=== PATIENT | male | born 1970 | race Caucasian/White ===

== ENCOUNTER → 2020-03-19 | Outpatient (CLI) | payer OTHER ==
--- NOTE | 2020-03-19 13:59 | CT ---
EXAMINATION TYPE: CT abdomen pelvis wo con DATE OF EXAM: 03/19/2020 COMPARISON: None HISTORY: Generalized pain. CT DLP: 2538 mGycm Examination of the solid and hollow viscera is limited given the lack of contrast. FINDINGS: LUNG BASES: No evidence for nodule. No evidence for infiltrate. LIVER/GB: The gallbladder is unremarkable. No space-occupying hepatic lesion. PANCREAS: No pancreatic mass identified. No inflammatory process seen. SPLEEN: No evidence for splenomegaly. No intrasplenic lesions seen. ADRENALS: No adrenal nodules identified. No evidence for thickening. KIDNEYS: No evidence for renal mass. No nephrolithiasis. No hydronephrosis. BOWEL: Appendix has a normal appearance. No evidence of bowel obstruction. No inflammatory process. Lymph nodes: No evidence for adenopathy greater than 1 cm. Abdominal aorta: Atheromatous changes seen. No evidence for aneurysm. Genital organs: No significant abnormality. Other: No significant abnormality. IMPRESSION: NO DISTINCT ABNORMALITY TO ACCOUNT FOR THE PATIENT'S SYMPTOMS.
== END | disposition home or self-care (01) ==
LOC: RADCTMAIN 13:19
PROVIDERS: ATTEND Family Medicine
DX: R10.9 Unspecified abdominal pain (principal)
CPT/HCPCS: 74176

== ENCOUNTER 2020-04-10 16:54 | Inpatient (IN) | payer OTHER ==
[2020-04-10] MEDS ORDERED: DILTIAZEM DRIP BOLUS FROM BAG 1 MG SOLN IV ONE ×2 (17:32→18:36)
--- NOTE | 2020-04-10 17:37 | ED ---
Arrhythmia/Palpitations HPI - General Chief Complaint: Arrhythmia/Palpitations Stated Complaint: chest pain Time Seen by Provider: 04/10/20 17:10 Source: patient, family, RN notes reviewed Mode of arrival: ambulatory Limitations: no limitations - History of Present Illness Initial Comments: This is a 49-year-old male with no prior history of heart disease who states he had the onset around 2 PM today of retrosternal chest pain and palpitations. No new medication reported no fevers chills nausea vomiting sweats he does state he was a drinker of a lot of beer up until about one to one half years ago he still smokes but thinks he will quit now. The pain is minimal but he just knows palpitations. No history of thyroid disease no new medication. No other modifying factors MD Complaint: rapid heart beat, "heart racing" - Related Data Home Medications Medication Instructions Recorded Confirmed Albuterol Sulfate [Proair Hfa] 2 puff INHALATION RT-Q4H PRN 04/10/20 04/10/20 Amoxicillin 500 mg PO DAILY PRN 04/10/20 04/10/20 Aspirin EC [Ecotrin Low Dose] 81 mg PO DAILY 04/10/20 04/10/20 Eovqpyh-Dmmc-Zzcv [id number] 1 tab PO DAILY PRN 04/10/20 04/10/20 [Excedrin] Baclofen [Lioresal] 10 mg PO TID PRN 04/10/20 04/10/20 Budesonide/Formoterol Fumarate 2 puff INHALATION RT-BID 04/10/20 04/10/20 [Symbicort 160-4.5 Mcg Inhaler] Citalopram Hydrobromide [CeleXA] 10 mg PO DAILY PRN 04/10/20 04/10/20 HYDROcodone/APAP 5-325MG [[place] 1 - 2 tab PO Q4-6H PRN 04/10/20 04/10/20 5-325] Ibuprofen [Advil] 400 mg PO Q4-6H PRN 04/10/20 04/10/20 Lovastatin [Altoprev] 20 mg PO DAILY 04/10/20 04/10/20 Magnesium (Unknown Strength) 1 tab PO DAILY 04/10/20 04/10/20 Omeprazole [PriLOSEC] 20 mg PO DAILY 04/10/20 04/10/20 Pregabalin [Lyrica] 50 mg PO DAILY PRN 04/10/20 04/10/20 Sudafed Otc (Unknown Strength) 1 tab PO DAILY PRN 04/10/20 04/10/20 Vitamin B (Unknown Strength) 1 tab PO DAILY 04/10/20 04/10/20 Vitamin D (Unknown Strength) 1 tab PO DAILY 04/10/20 04/10/20 amLODIPine BESYLATE/BENAZEPRIL 1 cap PO DAILY 04/10/20 04/10/20 [amLODIPine BESYLATE/BENAZEPRIL 5-40 MG] metFORMIN HCL [Glucophage] 1,000 mg PO BID 04/10/20 04/10/20 Allergies Allergy/AdvReac Type Severity Reaction Status Date / Time caffeine [From Cafergot] Allergy Unknown Verified 04/10/20 19:37 codeine Allergy Unknown Verified 04/10/20 19:37 ergotamine [From Cafergot] Allergy Unknown Verified 04/10/20 19:37 Review of Systems ROS Statement: Those systems with pertinent positive or pertinent negative responses have been documented in the HPI. ROS Other: All systems not noted in ROS Statement are negative. Past Medical History Past Medical History: Diabetes Mellitus Additional Past Medical History / Comment(s): neuropathy History of Any Multi-Drug Resistant Organisms: None Reported Additional Past Surgical History / Comment(s): toe amputation Past Psychological History: No Psychological Hx Reported Smoking Status: Current every day smoker Past Alcohol Use History: None Reported Past Drug Use History: None Reported General Exam - General Exam Comments Initial Comments: Is a well-developed well-nourished awake alert oriented 3 male Limitations: no limitations General appearance: alert, anxious Head exam: Present: atraumatic, normocephalic, normal inspection Eye exam: Present: normal appearance, PERRL, EOMI. Absent: scleral icterus, conjunctival injection, periorbital swelling ENT exam: Present: normal exam, mucous membranes moist Neck exam: Present: normal inspection, full ROM, other. Absent: tenderness, men ingismus, lymphadenopathy Respiratory exam: Present: normal lung sounds bilaterally. Absent: respiratory distress, wheezes, rales, rhonchi, stridor Cardiovascular Exam: Present: tachycardia, irregular rhythm (Stridor JVD or bruits). Absent: systolic murmur, diastolic murmur, rubs, gallop, clicks GI/Abdominal exam: Present: soft, normal bowel sounds. Absent: distended, tenderness, guarding, rebound, rigid Extremities exam: Present: normal inspection, full ROM, normal capillary refill. Absent: tenderness, pedal edema, joint swelling, calf tenderness Back exam: Present: normal inspection Neurological exam: Present: alert, oriented X3, CN II-XII intact Psychiatric exam: Present: normal affect, normal mood Skin exam: Present: warm, dry, intact, normal color. Absent: rash Course Vital Signs 04/10/20 04/10/20 04/10/20 17:03 17:49 18:01 Temperature 97.9 F Pulse Rate 86 168 H 163 H Respiratory 18 16 18 Rate Blood Pressure 150/85 135/101 115/74 O2 Sat by Pulse 96 97 96 Oximetry 04/10/20 04/10/20 04/10/20 18:25 18:46 19:16 Temperature Pulse Rate 149 H 147 H 133 H Respiratory 18 18 Rate Blood Pressure 103/64 121/98 O2 Sat by Pulse 97 97 Oximetry - Reevaluation(s) Reevaluation #1: 04/10/20 20:05 Patient has no further discomfort in his chest is heart rate is trending downwards. He is receiving IV magnesium. EKG Findings - EKG Results: EKG: interpreted by ERMIlda (Atrial fibrillation rate of 182 QRS 74 daily since QTC 260/[address] configuration.) Medical Decision Making - Medical Decision Making Patient demonstrates atrial fibrillation with a rapid ventricular response. He also has hypomagnesemia. He was given IV magnesium IV Cardizem. He will be placed on heparin. I did discuss case with Cynthia Bailey who is covering Dr. Zhang. Patient be admitted with cardiology consultation - Lab Data Result diagrams: 04/10/20 17:33 04/10/20 17:33 Lab Results 04/10/20 04/10/20 04/10/20 Range/Units 17:33 17:33 17:33 WBC 14.5 H (3.8-10.6) k/uL RBC 5.51 (4.30-5.90) m/uL Hgb 16.0 (13.0-17.5) gm/dL Hct 48.7 (39.0-53.0) % MCV 88.3 (80.0-100.0) fL MCH 29.0 (25.0-35.0) pg MCHC 32.8 (31.0-37.0) g/dL RDW 13.3 (11.5-15.5) % Plt Count 233 (150-450) k/uL Neutrophils % 77 % Lymphocytes % 14 % Monocytes % 4 % Eosinophils % 5 % Basophils % 0 % Neutrophils # 11.2 H (1.3-7.7) k/uL Lymphocytes # 2.0 (1.0-4.8) k/uL Monocytes # 0.5 (0-1.0) k/uL Eosinophils # 0.7 (0-0.7) k/uL Basophils # 0.0 (0-0.2) k/uL PT 9.9 (9.0-12.0) sec INR 0.9 (<1.2) APTT 25.2 (22.0-30.0) sec D-Dimer 0.23 (<0.60) mg/L FEU Sodium 137 (137-145) mmol/L Potassium 3.9 (3.5-5.1) mmol/L Chloride 102 (98-107) mmol/L Carbon Dioxide 25 (22-30) mmol/L Anion Gap 10 mmol/L BUN 4 L (9-20) mg/dL Creatinine 0.52 L (0.66-1.25) mg/dL Est GFR (CKD-EPI)AfAm >90 (>60 ml/min/1.73 sqM) Est GFR (CKD-EPI)NonAf >90 (>60 ml/min/1.73 sqM) Glucose 138 H (74-99) mg/dL Calcium 9.3 (8.4-10.2) mg/dL Magnesium 1.4 L (1.6-2.3) mg/dL Total Bilirubin 0.3 (0.2-1.3) mg/dL AST 18 (17-59) U/L ALT 11 (4-49) U/L Alkaline Phosphatase 151 H (38-126) U/L Creatine Kinase 46 L (55-170) U/L Troponin I (0.000-0.034) ng/mL Total Protein 7.7 (6.3-8.2) g/dL Albumin 4.3 (3.5-5.0) g/dL TSH 1.260 (0.465-4.680) mIU/L 04/10/20 Range/Units 17:33 WBC (3.8-10.6) k/uL RBC (4.30-5.90) m/uL Hgb (13.0-17.5) gm/dL Hct (39.0-53.0) % MCV (80.0-100.0) fL MCH (25.0-35.0) pg MCHC (31.0-37.0) g/dL RDW (11.5-15.5) % Plt Count (150-450) k/uL Neutrophils % % Lymphocytes % % Monocytes % % Eosinophils % % Basophils % % Neutrophils # (1.3-7.7) k/uL Lymphocytes # (1.0-4.8) k/uL Monocytes # (0-1.0) k/uL Eosinophils # (0-0.7) k/uL Basophils # (0-0.2) k/uL PT (9.0-12.0) sec INR (<1.2) APTT (22.0-30.0) sec D-Dimer (<0.60) mg/L FEU Sodium (137-145) mmol/L Potassium (3.5-5.1) mmol/L Chloride (98-107) mmol/L Carbon Dioxide (22-30) mmol/L Anion Gap mmol/L BUN (9-20) mg/dL Creatinine (0.66-1.25) mg/dL Est GFR (CKD-EPI)AfAm (>60 ml/min/1.73 sqM) Est GFR (CKD-EPI)NonAf (>60 ml/min/1.73 sqM) Glucose (74-99) mg/dL Calcium (8.4-10.2) mg/dL Magnesium (1.6-2.3) mg/dL Total Bilirubin (0.2-1.3) mg/dL AST (17-59) U/L ALT (4-49) U/L Alkaline Phosphatase (38-126) U/L Creatine Kinase (55-170) U/L Troponin I <0.012 (0.000-0.034) ng/mL Total Protein (6.3-8.2) g/dL Albumin (3.5-5.0) g/dL TSH (0.465-4.680) mIU/L - Radiology Data Radiology results: report reviewed, image reviewed Critical Care Time Critical Care Time: Yes Critical Care Time: 39 minutes of critical care time which includes initial presentation with history physical labs x-rays reevaluation patient response to therapy discuss w ith the admitting physician coverage admission orders neck mentation the above Disposition Clinical Impression: Atrial fibrillation, Atrial fibrillation with rapid ventricular response, Hypomagnesemia syndrome, Chest pain Disposition: ADMITTED IP TO THIS HOSP Condition: Fair Referrals: Niki Antoine DO [Primary Care Provider] - 1-2 days
[2020-04-10] MEDS: DILTIAZEM 125 MG in SODIUM CHLORIDE 0.9% 100 ML IV SCH ×2 (17:46→18:00)
[2020-04-10 17:52] LABS: Basophils % (A) 0 %; Eosinophils # (A) 0.7 k/uL (0-0.7); Eosinophils % (A) 5 %; HCT 48.7 % (39.0-53.0); Lymphocytes % (A) 14 %; MCHC 32.8 g/dL (31.0-37.0); MCV 88.3 fL (80.0-100.0); Mean Platelet Volume 7.9; Monocytes # (A) 0.5 k/uL (0-1.0); Monocytes % (A) 4 %; Neutrophils # (A) 11.2 k/uL (1.3-7.7); Neutrophils % (A) 77 %; Platelet Count 233 k/uL (150-450); RBC 5.51 m/uL (4.30-5.90); RDW 13.3 % (11.5-15.5); WBC 14.5 k/uL (3.8-10.6)
[2020-04-10 18:02] VITALS: RESP 18
[2020-04-10 18:03] LABS: ALT 11 U/L (4-49); AST 18 U/L (17-59); African American GFR (CKD) >90 (>60 ml/min/1.73 sqM); Albumin 4.3 g/dL (3.5-5.0); Alkaline Phosphatase 151 U/L (38-126); Anion Gap 10 mmol/L; Blood Urea Nitrogen 4 mg/dL (9-20); Calcium 9.3 mg/dL (8.4-10.2); Carbon Dioxide 25 mmol/L (22-30); Chloride 102 mmol/L (98-107); Creatine Kinase 46 U/L (55-170); Glucose 138 mg/dL (74-99); Magnesium 1.4 mg/dL (1.6-2.3); Non-African American GFR(CKD) >90 (>60 ml/min/1.73 sqM); Potassium 3.9 mmol/L (3.5-5.1); Sodium 137 mmol/L (137-145); Total Bilirubin 0.3 mg/dL (0.2-1.3); Total Protein 7.7 g/dL (6.3-8.2)
[2020-04-10 18:24] LABS: D-Dimer 0.23 mg/L FEU (<0.60); INR 0.9 (<1.2); Partial Thromboplastin Time 25.2 sec (22.0-30.0); Prothrombin Time 9.9 sec (9.0-12.0)
--- NOTE | 2020-04-10 18:30 | XR ---
EXAMINATION TYPE: XR chest 2V DATE OF EXAM: 04/10/2020 COMPARISON: NONE HISTORY: Dysrhythmia TECHNIQUE: 2 views FINDINGS: Heart and mediastinum are normal. Lungs are clear. Diaphragm is normal. Bony thorax appears normal. IMPRESSION: Normal chest. Normal heart.
[2020-04-10] MEDS: MAGNESIUM SULFATE-D5W PMX 1 GM in DEXTROSE/WATER 1 100ML.BAG IVPB SCH ×2 (19:12→20:14)
[2020-04-10] MEDS ORDERED: HEPARIN SODIUM,PORCINE 5,000 UNIT/ML 1 ML VIAL IV ONE (20:09)
[2020-04-10] MEDS ORDERED: NITROGLYCERIN SL TABS 0.4 MG TAB SUBLINGUAL PRN (20:09)
[2020-04-10] MEDS ORDERED: HYDROcodone/APAP 5-325MG 1 EACH TAB PO PRN (20:11)
[2020-04-10] MEDS ORDERED: ALBUTEROL NEBULIZED 2.5 MG/3 ML INHALATION PRN (20:11)
[2020-04-10] MEDS ORDERED: PREGABALIN 50 MG CAP PO PRN (20:11)
[2020-04-10] MEDS ORDERED: BACLOFEN 10 MG TAB PO PRN (20:11)
[2020-04-10] MEDS ORDERED: CITALOPRAM HYDROBROMIDE 10 MG TAB PO PRN (20:11)
[2020-04-10] MEDS ORDERED: AMOXICILLIN 500 MG CAP PO PRN (20:11)
[2020-04-10] MEDS ORDERED: HEPARIN SOD,PORK IN 0.45% NACL 25,000 UNIT in 0.45% NACL 1 250ML.BAG IV SCH (20:15)
[2020-04-10 21:30] LABS: Glucose,Whole Blood 140 mg/dL (75-99)
[2020-04-10] MEDS: INSULIN ASPART (NovoLOG) 100 UNIT/ML VIAL SQ SCH (23:16)
[2020-04-10] MEDS: metFORMIN 500 MG TAB PO SCH (23:16)
[2020-04-11 06:13] LABS: Glucose,Whole Blood 103 mg/dL (75-99)
[2020-04-11] MEDS: INSULIN ASPART (NovoLOG) 100 UNIT/ML VIAL SQ SCH ×2 (06:19→12:17)
[2020-04-11 06:43] LABS: Cholesterol 131 mg/dL (<200); HDL Cholesterol 51 mg/dL (40-60); LDL Cholesterol,Calculated 54 mg/dL (0-99); Triglycerides 130 mg/dL (<150)
[2020-04-11] MEDS ORDERED: PANTOPRAZOLE 40 MG TABLET PO SCH (07:30)
[2020-04-11] MEDS ORDERED: SYMBICORT 160-4.5 MCG INHALER INHALATION SCH (08:00)
[2020-04-11] MEDS ORDERED: HEPARIN SODIUM,PORCINE 5,000 UNIT/ML 1 ML VIAL IV PRN ×2 (08:30→08:36)
[2020-04-11] MEDS ORDERED: ATORVASTATIN 10 MG TAB PO SCH (09:00)
[2020-04-11] MEDS ORDERED: amLODIPine 5 MG TAB PO SCH (09:00)
[2020-04-11] MEDS ORDERED: [UNRECOGNIZED DRUG - OTHER] PO SCH (09:00)
[2020-04-11] MEDS ORDERED: ASPIRIN 81 MG PO SCH (09:00)
[2020-04-11] MEDS ORDERED: BENAZEPRIL PO SCH (09:00)
[2020-04-11] MEDS ORDERED: AMLODIPINE BESYLATE PO SCH (09:00)
[2020-04-11] MEDS ORDERED: ASPIRIN 325 MG TAB PO SCH (09:00)
[2020-04-11] MEDS ORDERED: LISINOPRIL 20 MG TAB PO SCH (09:00)
[2020-04-11 12:01] LABS: Glucose,Whole Blood 101 mg/dL (75-99)
--- NOTE | 2020-04-11 12:10 | P.CRDCN ---
History of Present Illness Consult date: 04/11/20 Requesting physician: Veena Zhang Reason for Consult (text): AF w/RVR, chest pain Chief complaint: RHB History of present illness: This is a pleasant 49-year-old gentleman with a past medical history of hypertension, hyperlipidemia, diabetes which she says is well-controlled with his most recent hemoglobin A1c of 5.6, previous history of heavy drinking and would drink about 4-5 40 ounce bottles of malt liquor or daily, quit about 16 months ago, occurring every day smoker but is planning to quit, low back pain, lower extremity neuropathy with limited mobility. He does use a cane and uses a wheelchair most the time when he is out of the house. He presented to the emergency department after developing palpitations that he described as a fluttering in his shots at which time he used his [employer] marcy on his phone which alerted him that he was in atrial fibrillation. He subsequently presented to the emergency department for further evaluation. EKG on admission showed patient to be in atrial fibrillation with rapid ventricular response with a heart rate of 182. Chest x-ray showed normal chest, normal heart. Labs showed white blood cell count 14,500, normal d-dimer, potassium 3.9, BUN 4, creatinine 0.52, magnesium 1.4 and normal TSH. Lipids are well controlled. He was i nitiated on Cardizem drip as well as heparin drip. He has subsequently converted to sinus rhythm. Currently on Norvasc, aspirin, Lipitor, Celexa, Seymour as needed, NovoLog, lisinopril, metformin and Protonix. He is feeling quite a bit better. He has chronic low back pain and he is complaining of this now. He was unable to sleep last night. Upon further questioning it appears patient probably has obstructive sleep apnea although he's never gone through workup. He denies any shortness of breath but does have a history of asthma. Denies edema, orthopnea or PND. He's had no chest discomfort. Palpitations have resolved. Past Medical History Past Medical History: Diabetes Mellitus Additional Past Medical History / Comment(s): neuropathy History of Any Multi-Drug Resistant Organisms: None Reported Additional Past Surgical History / Comment(s): toe amputation Past Psychological History: No Psychological Hx Reported Smoking Status: Current every day smoker Past Alcohol Use History: None Reported Past Drug Use History: None Reported Medications and Allergies Home Medications Medication Instructions Recorded Confirmed Type Albuterol Sulfate [Proair Hfa] 2 puff INHALATION RT-Q4H PRN 04/10/20 04/10/20 History Amoxicillin 500 mg PO DAILY PRN 04/10/20 04/10/20 History Aspirin EC [Ecotrin Low Dose] 81 mg PO DAILY 04/10/20 04/10/20 History Qindvdy-Rwyr-Yuyo [id number] 1 tab PO DAILY PRN 04/10/20 04/10/20 History [Excedrin] Baclofen [Lioresal] 10 mg PO TID PRN 04/10/20 04/10/20 History Budesonide/Formoterol Fumarate 2 puff INHALATION RT-BID 04/10/20 04/10/20 History [Symbicort 160-4.5 Mcg Inhaler] Citalopram Hydrobromide [CeleXA] 10 mg PO DAILY PRN 04/10/20 04/10/20 History HYDROcodone/APAP 5-325MG [[place] 1 - 2 tab PO Q4-6H PRN 04/10/20 04/10/20 History 5-325] Ibuprofen [Advil] 400 mg PO Q4-6H PRN 04/10/20 04/10/20 History Lovastatin [Altoprev] 20 mg PO DAILY 04/10/20 04/10/20 History Magnesium (Unknown Strength) 1 tab PO DAILY 04/10/20 04/10/20 History Omeprazole [PriLOSEC] 40 mg PO DAILY 04/10/20 04/10/20 History Pregabalin [Lyrica] 50 mg PO DAILY PRN 04/10/20 04/10/20 History Sudafed Otc (Unknown Strength) 1 tab PO DAILY PRN 04/10/20 04/10/20 History Vitamin B (Unknown Strength) 1 tab PO DAILY 04/10/20 04/10/20 History Vitamin D (Unknown Strength) 1 tab PO DAILY 04/10/20 04/10/20 History amLODIPine BESYLATE/BENAZEPRIL 1 cap PO DAILY 04/10/20 04/10/20 History [amLODIPine BESYLATE/BENAZEPRIL 5-40 MG] metFORMIN HCL [Glucophage] 1,000 mg PO BID 04/10/20 04/10/20 History Allergies Allergy/AdvReac Type Severity Reaction Status Date / Time caffeine [From Cafergot] Allergy Unknown Verified 04/10/20 19:37 codeine Allergy Unknown Verified 04/10/20 19:37 ergotamine [From Cafergot] Allergy Unknown Verified 04/10/20 19:37 Physical Exam Vitals: Vital Signs Temp Pulse Pulse Resp BP BP Pulse Ox 04/11/20 07:46 98.3 F 80 18 148/88 97 04/11/20 04:00 116 H 18 148/79 96 04/11/20 00:00 116 H 18 136/85 94 L 04/10/20 20:51 97.9 F 105 H 18 105/71 97 04/10/20 20:22 116 H 18 110/78 96 04/10/20 19:16 133 H 18 121/98 97 04/10/20 18:46 147 H 18 103/64 97 04/10/20 18:25 149 H 04/10/20 18:01 163 H 18 115/74 96 04/10/20 17:49 168 H 16 135/101 97 04/10/20 17:03 97.9 F 86 18 150/85 96 Intake and Output 04/10/20 04/11/20 04/11/20 22:59 06:59 14:59 Intake Total 201.167 63.616 77.597 Output Total 100 Balance 201.167 -36.384 77.597 Intake: Intake, IV Titration 201.167 63.616 77.597 Amount Diltiazem 125 mg In 1.167 Sodium Chloride 0.9% 100 ml @ 5 MG/HR 5 mls/hr IV .Q24H LEN[facility] Rx#:[id number] Heparin Sod,Pork in 0.45% 63.616 77.597 NaCl 25,000 unit In 0.45 % NaCl 1 250ml.bag @ 8.01 UNITS/KG/HR 9.992 mls/hr IV .Q24H [facility] Rx#: [id number] Magnesium Sulfate-D5w Pmx 200 1 gm In Dextrose/Water 1 100ml.bag @ 100 mls/hr IVPB Q1H [facility] Rx#: [id number] Output: Urine 100 Other: Voiding Method Urinal Weight 124.738 kg 166.2 kg PHYSICAL EXAMINATION: This is a 49-year-old male in no apparent distress at the time of my examination. VITAL SIGNS: Blood pressure 148/88, heart rate 80, respirations 18, temp 98.3F. Patient is and 97 % on room air. HEENT: Head is atraumatic, normocephalic. Pupils are equal, round. Sclerae anicteric. Conjunctivae are clear. Mucous membranes of the mouth are moist. Neck is supple. There is no elevated jugular venous pressure. No carotid bruit is heard. CHEST EXAMINATION: Clear to auscultation bilaterally. No wheezes rales or rhonchi. Respirations even and nonlabored. HEART EXAMINATION: Heart regular regular, positive S1 and S2. No S3. No S4. No clicks, rubs or murmurs. ABDOMEN: Soft, obese, nontender. Bowel sounds are heard. EXTREMITIES: 1+ peripheral pulses with no evidence of peripheral edema and no calf tenderness noted. NEUROLOGIC EXAMINATION: Patient is awake, alert and oriented x3. Results 04/10/20 17:33 04/10/20 17:33 Cardiac Enzymes 04/10/20 04/10/20 04/10/20 Range/Units 17:33 17:33 22:57 AST 18 (17-59) U/L Troponin I <0.012 <0.012 (0.000-0.034) ng/mL 04/11/20 Range/Units 05:53 AST (17-59) U/L Troponin I <0.012 (0.000-0.034) ng/mL Coagulation 04/10/20 04/11/20 04/11/20 Range/Units 17:33 02:00 05:53 PT 9.9 (9.0-12.0) sec APTT 25.2 27.8 31.7 H (22.0-30.0) sec Lipids 04/11/20 Range/Units 05:53 Triglycerides 130 (<150) mg/dL Cholesterol 131 (<200) mg/dL HDL Cholesterol 51 (40-60) mg/dL CBC 04/10/20 Range/Units 17:33 WBC 14.5 H (3.8-10.6) k/uL RBC 5.51 (4.30-5.90) m/uL Hgb 16.0 (13.0-17.5) gm/dL Hct 48.7 (39.0-53.0) % Plt Count 233 (150-450) k/uL Comprehensive Metabolic Panel 04/10/20 Range/Units 17:33 Sodium 137 (137-145) mmol/L Potassium 3.9 (3.5-5.1) mmol/L Chloride 102 (98-107) mmol/L Carbon Dioxide 25 (22-30) mmol/L BUN 4 L (9-20) mg/dL Creatinine 0.52 L (0.66-1.25) mg/dL Glucose 138 H (74-99) mg/dL Calcium 9.3 (8.4-10.2) mg/dL AST 18 (17-59) U/L ALT 11 (4-49) U/L Alkaline Phosphatase 151 H (38-126) U/L Total Protein 7.7 (6.3-8.2) g/dL Albumin 4.3 (3.5-5.0) g/dL Current Medications Generic Name Dose Route Start Last Admin Trade Name Freq PRN Reason Stop Dose Admin Hydrocodone Bitart/Acetaminophen 2 each 04/10/20 20:11 Seymour 5-325 PO Q4H PRN Pain Albuterol Sulfate 2.5 mg 04/10/20 20:11 Ventolin Nebulized INHALATION RT-Q4H PRN Shortness Of Breath Amlodipine Besylate 5 mg 04/11/20 09:00 04/11/20 08:00 Norvasc PO 5 mg DAILY LENI Administration Aspirin 81 mg 04/11/20 09:00 04/11/20 08:00 Aspirin PO 81 mg DAILY LENI Administration Atorvastatin Calcium 10 mg 04/11/20 09:00 04/11/20 08:00 Lipitor PO 10 mg DAILY LENI Administration Baclofen 10 mg 04/10/20 20:11 Lioresal PO TID PRN muscle spasm Budesonide/Formoterol Fumarate 2 puff 04/11/20 08:00 04/11/20 07:51 Symbicort 160-4.5 Mcg Inhaler INHALATION 2 puff RT-BID LENI Administration Citalopram Hydrobromide 10 mg 04/10/20 20:11 Celexa PO DAILY PRN Anxiety Heparin Sodium (Porcine) 0 unit 04/11/20 08:36 04/11/20 08:55 Heparin IV 4,000 unit PER PROTOCOL PRN Administration Low PTT Protocol Diltiazem HCl 125 mg/ Sodium 125 mls @ 5 mls/hr 04/10/20 17:45 04/10/20 18:00 Chloride IV 10 mg/hr .Q24H LENI 10 mls/hr Administration 5 MG/HR Heparin Sodium/Sodium Chloride 250 mls @ 9.992 mls/hr 04/10/20 20:15 04/11/20 08:24 25,000 unit/ Sodium Chloride IV 14 units/kg/hr .Q24H [facility]EN[facility] 17.463 mls/hr Titration Protocol 8.01 UNITS/KG/HR Insulin Aspart 0 unit 04/10/20 21:00 04/11/20 06:19 Novolog SQ Not Given ACHS [facility] Protocol Lisinopril 40 mg 04/11/20 09:00 04/11/20 08:00 Zestril PO 40 mg DAILY LENI Administration Metformin HCl 1,000 mg 04/10/20 21:00 04/10/20 23:16 Glucophage PO 1,000 mg BID LENI Administration Nitroglycerin 0.4 mg 04/10/20 20:09 Nitrostat SUBLINGUAL Q5M PRN Chest Pain Pantoprazole Sodium 40 mg 04/11/20 07:30 04/11/20 08:00 Protonix PO 40 mg AC-BRKFST LENI Administration Pregabalin 50 mg 04/10/20 20:11 Lyrica PO DAILY PRN nerve pain in feet Intake and Output 04/10/20 04/11/20 04/11/20 22:59 06:59 14:59 Intake Total 201.167 63.616 77.597 Output Total 100 Balance 201.167 -36.384 77.597 Intake: Intake, IV Titration 201.167 63.616 77.597 Amount Diltiazem 125 mg In 1.167 Sodium Chloride 0.9% 100 ml @ 5 MG/HR 5 mls/hr IV .Q24H [facility] Rx#:[id number] Heparin Sod,Pork in 0.45% 63.616 77.597 NaCl 25,000 unit In 0.45 % NaCl 1 250ml.bag @ 8.01 UNITS/KG/HR 9.992 mls/hr IV .Q24H [facility] Rx#: [id number] Magnesium Sulfate-D5w Pmx 200 1 gm In Dextrose/Water 1 100ml.bag @ 100 mls/hr IVPB Q1H [facility] Rx#: [id number] Output: Urine 100 Other: Voiding Method Urinal Weight 124.738 kg 166.2 kg 04/10/20 17:33 04/10/20 17:33 EKG Interpretations (text) Atrial fibrillation with RVR Assessment and Plan Assessment: #1 new-onset paroxysmal atrial fibrillation with rapid ventricular response, currently maintaining sinus mechanism #2 hypertension #3 hyperlipidemia #4 diabetes mellitus #5 nicotine dependence, planning on quitting #6 obesity #7 history of alcohol abuse, quit drinking about 16 months ago #8 probable RAQUEL Plan: From cardiology's perspective, we will obtain a 2-D echo with Doppler. We will add beta ngozi and Eliquis. Stop Cardizem and IV heparin. We will follow-up with the patient as an outpatient at which time we will likely schedule the patient for further workup for obstructive sleep apnea as well as outpatient stress testing. From our standpoint, patient is stable for discharge home today if echocardiogram does not show significant abnormalities. BUILDING WRECKER note has been reviewed, I agree with a documented findings and plan of care. Patient was seen and examined.
[2020-04-11] MEDS ORDERED: APIXABAN 5 MG TAB PO SCH (12:15)
[2020-04-11] MEDS ORDERED: METOPROLOL TARTRATE 25 MG TAB PO SCH (12:15)
[2020-04-11] MEDS: metFORMIN 500 MG TAB PO SCH (12:26)
[2020-04-11 13:26] VITALS: BP 129/84; PULSE 72; TEMP 96.8
--- NOTE | 2020-04-11 14:30 | ECHOF ---
Referral Reason:PAF MEASUREMENTS -------- HEIGHT: 182.9 cm WEIGHT: 166.0 kg BP: 148/88 IVSd: 1.8 cm (0.6 - 1.1) LVIDd: 3.9 cm (3.9 - 5.3) LVPWd: 1.6 cm (0.6 - 1.1) IVSs: 2.0 cm LVIDs: 2.7 cm LVPWs: 2.0 cm RVIDd: 3.5 cm (< 3.3) Ao Diam: 3.3 cm (2.0 - 3.7) LA Diam: 4.6 cm (2.7 - 3.8) AV Cusp: 2.1 cm (1.5 - 2.6) EPSS: 0.4 cm MV E Jonathan: 1.03 m/s MV DecT: 162 ms MV A Jonathan: 0.76 m/s MV E/A Ratio: 1.36 RAP: 5.00 mmHg RVSP: 15.50 mmHg MV EF SLOPE: 77.16 mm/s (70 - 150) MV EXCURSION: 18.35 mm (> 18.000) FINDINGS -------- Sinus rhythm. This was a technically difficult study with suboptimal views. The left ventricular size is normal. There is severe concentric left ventricular hypertrophy. Ove rall left ventricular systolic function is normal with, an EF between 55 - 60 %. The diastolic fill ing pattern is normal for the age of the patient {E/E'}. The right ventricle is mild to moderately enlarged. The left atrium is mildly dilated. The right atrium was not well visualized. There is mild aortic valve sclerosis without stenosis. The mitral valve is normal. There is trace to mild mitral regurgitation. Mild tricuspid regurgitation present. The right ventricular systolic pressure, as measured by Doppl er, is 15.50mmHg. The pulmonic valve was not well visualized. There is no pulmonic regurgitation present. The aortic root size is normal. IVC Not well visulized. There is no pericardial effusion. 5.0mg of Lumason was utilized for enhancement of images CONCLUSIONS -------- 1. Sinus rhythm. 2. This was a technically difficult study with suboptimal views. 3. There is severe concentric left ventricular hypertrophy. 4. Overall left ventricular systolic function is normal with, an EF between 55 - 60 %. 5. The diastolic filling pattern is normal for the age of the patient {E/E'} 6. The right ventricle is mild to moderately enlarged. 7. The left atrium is mildly dilated. 8. There is mild aortic valve sclerosis without stenosis. 9. There is trace to mild mitral regurgitation. 10. Mild tricuspid regurgitation present. 11. 5.0mg of Lumason was utilized for enhancement of images 12. There is no pericardial effusion. [employer] OPERATOR: Isabella Prescott RDCS
--- NOTE | 2020-04-15 15:14 | P.HPIM ---
History of Present Illness H&P Date: 04/11/20 Chief Complaint: Palpitations Patient is a 49-year-old male with a known history of diabetes type 2-diet controlled, morbid obesity, hyperlipidemia presents to ER with complaints of heart racing of fast since 2 PM yesterday. Patient also felt some retrosternal chest pain. No radiation. No associated nausea vomiting or diaphoresis. Patient says that he didn't sleep well last night and has been up all night and is also taking Coffee as well. Patient says that he did drink beer up until one half year ago. Patient does smoke but has been cutting down. No complaints of fever or chills. No headache or dizziness or lightheadedness. No cough or sputum production. Denied any recent illnesses. Denied any orthopnea or PND. In the ER patient was found have atrial fibrillation with rapid ventricular rate. Was started on Cardizem drip and heparin drip. Currently patient is converted to sinus rhythm. EKG on admission showed A. fib with RVR with heart rate 182 Chest x-ray showed no acute cardiopulmonary process. Review of Systems Constitutional: Patient denies any fever or chills . No generalized weakness or weight loss. Abdomen: Patient denied nausea vomiting and diarrhea and abdominal pain. Cardiovascular: Patient denies any chest pain or short of breath . Patient does have palpitations. Respiratory: patient denied any cough is from production. No shortness of breath Neurologic: Patient denied any numbness or tingling headache. Musculoskeletal: Patient denies any complaints of joint swelling or deformity. Skin: Negative Psychiatric: Negative Endocrine: No heat or cold intolerance. No recent weight gain. Genitourinary: No dysuria or hematuria. All other 14 point ROS negative except the above Past Medical History Past Medical History: Diabetes Mellitus Additional Past Medical History / Comment(s): neuropathy History of Any Multi-Drug Resistant Organisms: None Reported Additional Past Surgical History / Comment(s): toe amputation Past Psychological History: No Psychological Hx Reported Smoking Status: Current every day smoker Past Alcohol Use History: None Reported Past Drug Use History: None Reported Medications and Allergies Home Medications Medication Instructions Recorded Confirmed Type Albuterol Sulfate [Proair Hfa] 2 puff INHALATION RT-Q4H PRN 04/10/20 04/10/20 History Amoxicillin 500 mg PO DAILY PRN 04/10/20 04/10/20 History Aspirin EC [Ecotrin Low Dose] 81 mg PO DAILY 04/10/20 04/10/20 History Baclofen [Lioresal] 10 mg PO TID PRN 04/10/20 04/10/20 History Budesonide/Formoterol Fumarate 2 puff INHALATION RT-BID 04/10/20 04/10/20 History [Symbicort 160-4.5 Mcg Inhaler] Citalopram Hydrobromide [CeleXA] 10 mg PO DAILY PRN 04/10/20 04/10/20 History HYDROcodone/APAP 5-325MG [[place] 1 - 2 tab PO Q4-6H PRN 04/10/20 04/10/20 History 5-325] Lovastatin [Altoprev] 20 mg PO DAILY 04/10/20 04/10/20 History Magnesium (Unknown Strength) 1 tab PO DAILY 04/10/20 04/10/20 History Omeprazole [PriLOSEC] 40 mg PO DAILY 04/10/20 04/10/20 History Pregabalin [Lyrica] 50 mg PO DAILY PRN 04/10/20 04/10/20 History Sudafed Otc (Unknown Strength) 1 tab PO DAILY PRN 04/10/20 04/10/20 History Vitamin B (Unknown Strength) 1 tab PO DAILY 04/10/20 04/10/20 History Vitamin D (Unknown Strength) 1 tab PO DAILY 04/10/20 04/10/20 History amLODIPine BESYLATE/BENAZEPRIL 1 cap PO DAILY 04/10/20 04/10/20 History [amLODIPine BESYLATE/BENAZEPRIL 5-40 MG] metFORMIN HCL [Glucophage] 1,000 mg PO BID 04/10/20 04/10/20 History Apixaban [Eliquis] 5 mg PO BID #60 tab 04/11/20 Rx Metoprolol Tartrate [Lopressor] 25 mg PO BID #60 tab 04/11/20 Rx Allergies Allergy/AdvReac Type Severity Reaction Status Date / Time caffeine [From Cafergot] Allergy Unknown Verified 04/10/20 19:37 codeine Allergy Unknown Verified 04/10/20 19:37 ergotamine [From Cafergot] Allergy Unknown Verified 04/10/20 19:37 Physical Exam Vitals: Vital Signs Temp Pulse Pulse Resp BP BP Pulse Ox 04/11/20 07:46 98.3 F 80 18 148/88 97 04/11/20 04:00 116 H 18 148/79 96 04/11/20 00:00 116 H 18 136/85 94 L 04/10/20 20:51 97.9 F 105 H 18 105/71 97 04/10/20 20:22 116 H 18 110/78 96 04/10/20 19:16 133 H 18 121/98 97 04/10/20 18:46 147 H 18 103/64 97 04/10/20 18:25 149 H 04/10/20 18:01 163 H 18 115/74 96 04/10/20 17:49 168 H 16 135/101 97 04/10/20 17:03 97.9 F 86 18 150/85 96 Intake and Output 04/10/20 04/11/20 04/11/20 22:59 06:59 14:59 Intake Total 201.167 63.616 77.597 Output Total 100 Balance 201.167 -36.384 77.597 Intake: Intake, IV Titration 201.167 63.616 77.597 Amount Diltiazem 125 mg In 1.167 Sodium Chloride 0.9% 100 ml @ 5 MG/HR 5 mls/hr IV .Q24H [facility] Rx#:[id number] Heparin Sod,Pork in 0.45% 63.616 77.597 NaCl 25,000 unit In 0.45 % NaCl 1 250ml.bag @ 8.01 UNITS/KG/HR 9.992 mls/hr IV .Q24H [facility] Rx#: [id number] Magnesium Sulfate-D5w Pmx 200 1 gm In Dextrose/Water 1 100ml.bag @ 100 mls/hr IVPB Q1H [facility] Rx#: [id number] Output: Urine 100 Other: Voiding Method Urinal Weight 124.738 kg 166.2 kg PHYSICAL EXAMINATION: Patient is lying in the bed comfortably, no acute distress, awake alert and oriented. Morbid obesity. HEENT: Normocephalic. Neck is supple. Pupils reactive. Nostrils clear. Oral cavity is moist. Ears reveal no drainage. Neck reveals no JVD, carotid bruits, or thyromegaly. CHEST EXAMINATION: Trachea is central. Symmetrical expansion. Bibasilar diminished air entry. Lung kramer clear to auscultation and percussion. CARDIAC: Normal S1, S2 with no gallops. No murmurs ABDOMEN: Soft. Bowel sounds normal. No organomegaly. No abdominal bruits. Extremities: reveal no edema. No clubbing or cyanosis Neurologically awake, alert, oriented x3 with well-coordinated movements. No focal deficits noted Skin: No rash or skin lesions. Psychiatric: Coperative. Nonsuicidal Musculoskeletal: No joint swelling or deformity. Normal range of motion. Results CBC & Chem 7: 04/10/20 17:33 04/10/20 17:33 Labs: Abnormal Lab Results - Last 24 Hours (Table) 04/10/20 04/10/20 04/10/20 Range/Units 17:33 17:33 21:27 WBC 14.5 H (3.8-10.6) k/uL Neutrophils # 11.2 H (1.3-7.7) k/uL APTT (22.0-30.0) sec BUN 4 L (9-20) mg/dL Creatinine 0.52 L (0.66-1.25) mg/dL Glucose 138 H (74-99) mg/dL POC Glucose (mg/dL) 140 H (75-99) mg/dL Magnesium 1.4 L (1.6-2.3) mg/dL Alkaline Phosphatase 151 H (38-126) U/L Creatine Kinase 46 L (55-170) U/L 04/11/20 04/11/20 Range/Units 05:53 06:11 WBC (3.8-10.6) k/uL Neutrophils # (1.3-7.7) k/uL APTT 31.7 H (22.0-30.0) sec BUN (9-20) mg/dL Creatinine (0.66-1.25) mg/dL Glucose (74-99) mg/dL POC Glucose (mg/dL) 103 H (75-99) mg/dL Magnesium (1.6-2.3) mg/dL Alkaline Phosphatase (38-126) U/L Creatine Kinase (55-170) U/L Thrombosis Risk Factor Assmnt - DVT/VTE Prophylaxis DVT/VTE Prophylaxis: Pharmacologic Prophylaxis ordered - Choose All That Apply Each Factor Represents 1 point: Age 41-60 years, Obesity (BMI >25) Thrombosis Risk Factor Assessment Total Risk Factor Score: 2 Thrombosis Risk Factor Assessment Level: Low Risk Assessment and Plan Assessment: New onset atrial fibrillation with rapid ventricular rate. Currently converted to sinus rhythm. Hypertension Hyperlipidemia Diabetes type 2 [id number] Morbid obesity with BMI 49.7 Depression anxiety DVT prophylaxis Plan: Patient be continued on telemetry monitoring. Started on heparin drip and Cardizem drip. Currently heart rate is controlled. Patient was started on metoprolol and heparin will be discontinued and will be started on oral anticoagulants. Cardiology is on board. TSH level is within normal limits. Patient was advised to follow-up with primary care physician for referral to sleep clinic. Continue the home medications and further recommendations based on the clinical course. Time with Patient: Greater than 30
--- NOTE | 2020-04-15 15:15 | P.DS ---
Providers Date of admission: 04/10/20 20:13 Expected date of discharge: 04/11/20 Attending physician: Veena Zhang Consults: 04/10/20 20:09 Consult Physician Urgent Consulting Provider: Domingo Morales Consult Reason/Comments: Rapid atrial fibrillation, chest pain, hypomagnesemia Do you want consulting provider notified?: Yes Primary care physician: Niki Antoine Hospital Course: Discharge diagnosis New onset atrial fibrillation with rapid ventricular rate. Currently converted to sinus rhythm. Hypertension Hyperlipidemia Diabetes type 2 [id number] Morbid obesity with BMI 49.7 Depression anxiety Nicotine dependence History of alcohol abuse Possible obstructive sleep apnea DVT prophylaxis Hospital course Patient is a 49-year-old male with a known history of diabetes type 2-diet controlled, morbid obesity, hyperlipidemia presents to ER with complaints of heart racing of fast since 2 PM yesterday. Patient also felt some retrosternal chest pain. No radiation. No associated nausea vomiting or diaphoresis. Patient says that he didn't sleep well last night and has been up all night and is also taking Coffee as well. Patient says that he did drink beer up until one half year ago. Patient does smoke but has been cutting down. No complaints of fever or chills. No headache or dizziness or lightheadedness. No cough or sputum production. Denied any recent illnesses. Denied any orthopnea or PND. In the ER patient was found have atrial fibrillation with rapid ventricular rate. Was started on Cardizem drip and heparin drip. Currently patient is converted to sinus rhythm. EKG on admission showed A. fib with RVR with heart rate 182 Chest x-ray showed no acute cardiopulmonary process. Patient was continued on telemetry monitoring. Started on heparin drip and Cardizem drip. Currently heart rate is controlled. Patient was started on metoprolol and heparin will be discontinued and will be started on oral anticoagulants. Cardiology is on board. TSH level is within normal limits. Patient was advised to follow-up with primary care physician for referral to sleep clinic. Patient is cleared from cardiology standpoint. Patient wishes to be discharged home today. Discharge physical examination was done and vitals reviewed. Patient Condition at Discharge: Fair Plan - Discharge Summary Discharge Rx Participant: Yes New Discharge Prescriptions: New Apixaban [Eliquis] 5 mg PO BID #60 tab Metoprolol Tartrate [Lopressor] 25 mg PO BID #60 tab Continue Magnesium (Unknown Strength) 1 tab PO DAILY Sudafed Otc (Unknown Strength) 1 tab PO DAILY PRN PRN Reason: nasal stuffiness Vitamin B (Unknown Strength) 1 tab PO DAILY Vitamin D (Unknown Strength) 1 tab PO DAILY Albuterol Sulfate [Proair Hfa] 2 puff INHALATION RT-Q4H PRN PRN Reason: Shortness Of Breath amLODIPine BESYLATE/BENAZEPRIL [amLODIPine BESYLATE/BENAZEPRIL 5-40 MG] 1 cap PO DAILY Amoxicillin 500 mg PO DAILY PRN PRN Reason: throat pain Aspirin EC [Ecotrin Low Dose] 81 mg PO DAILY Baclofen [Lioresal] 10 mg PO TID PRN PRN Reason: muscle spasm Budesonide/Formoterol Fumarate [Symbicort 160-4.5 Mcg Inhaler] 2 puff INHALATION RT-BID Citalopram Hydrobromide [CeleXA] 10 mg PO DAILY PRN PRN Reason: Anxiety HYDROcodone/APAP 5-325MG [[place] 5-325] 1 - 2 tab PO Q4-6H PRN PRN Reason: Pain Lovastatin [Altoprev] 20 mg PO DAILY metFORMIN HCL [Glucophage] 1,000 mg PO BID Omeprazole [PriLOSEC] 40 mg PO DAILY Pregabalin [Lyrica] 50 mg PO DAILY PRN PRN Reason: nerve pain in feet Discontinued [id number] [Excedrin] 1 tab PO DAILY PRN PRN Reason: Headache Ibuprofen [Advil] 400 mg PO Q4-6H PRN PRN Reason: Pain Discharge Medication List Albuterol Sulfate [Proair Hfa] 2 puff INHALATION RT-Q4H PRN 04/10/20 [History] Amoxicillin 500 mg PO DAILY PRN 04/10/20 [History] Aspirin EC [Ecotrin Low Dose] 81 mg PO DAILY 04/10/20 [History] Baclofen [Lioresal] 10 mg PO TID PRN 04/10/20 [History] Budesonide/Formoterol Fumarate [Symbicort 160-4.5 Mcg Inhaler] 2 puff INHALATION RT-BID 04/10/20 [History] Citalopram Hydrobromide [CeleXA] 10 mg PO DAILY PRN 04/10/20 [History] HYDROcodone/APAP 5-325MG [[place] 5-325] 1 - 2 tab PO Q4-6H PRN 04/10/20 [History] Lovastatin [Altoprev] 20 mg PO DAILY 04/10/20 [History] Magnesium (Unknown Strength) 1 tab PO DAILY 04/10/20 [History] Omeprazole [PriLOSEC] 40 mg PO DAILY 04/10/20 [History] Pregabalin [Lyrica] 50 mg PO DAILY PRN 04/10/20 [History] Sudafed Otc (Unknown Strength) 1 tab PO DAILY PRN 04/10/20 [History] Vitamin B (Unknown Strength) 1 tab PO DAILY 04/10/20 [History] Vitamin D (Unknown Strength) 1 tab PO DAILY 04/10/20 [History] amLODIPine BESYLATE/BENAZEPRIL [amLODIPine BESYLATE/BENAZEPRIL 5-40 MG] 1 cap PO DAILY 04/10/20 [History] metFORMIN HCL [Glucophage] 1,000 mg PO BID 04/10/20 [History] Apixaban [Eliquis] 5 mg PO BID #60 tab 04/11/20 [Rx] Metoprolol Tartrate [Lopressor] 25 mg PO BID #60 tab 04/11/20 [Rx] Follow up Appointment(s)/Referral(s): Lyubov Mora MD [STAFF PHYSICIAN] - 1 Week (OFFICE WILL CALL YOU WITH APPOINTMENT) Niki Antoine DO [Primary Care Provider] - 1-2 days (PLEASE CALL TO MAKE AN APPOINTMENT) Patient Instructions/Handouts: A-fib (Atrial Fibrillation) (DC) Activity/Diet/Wound Care/Special Instructions: Consistent carb/heart healthy diet. Activity as tolerated. Discharge Disposition: HOME SELF-CARE
== END 2020-04-11 15:14 | disposition home or self-care (01) | DRG 309 ==
LOC: EC 16:54 → 3SCARD 20:13
PROVIDERS: ADMIT Internal Medicine; ATTEND Internal Medicine
DX: I48.0 Paroxysmal atrial fibrillation (principal); Z68.42 Body mass index [BMI] 45.0-49.9, adult; E11.40 Type 2 diabetes mellitus with diabetic neuropathy, unspecified; E66.01 Morbid (severe) obesity due to excess calories; Z89.429 Acquired absence of other toe(s), unspecified side; Z11.59 Encounter for screening for other viral diseases; E83.42 Hypomagnesemia; G47.33 Obstructive sleep apnea (adult) (pediatric); J45.909 Unspecified asthma, uncomplicated; I10 Essential (primary) hypertension; E78.5 Hyperlipidemia, unspecified; F41.8 Other specified anxiety disorders; G89.29 Other chronic pain; M54.5 Low back pain; F10.11 Alcohol abuse, in remission; F17.200 Nicotine dependence, unspecified, uncomplicated; Z71.6 Tobacco abuse counseling; Z79.82 Long term (current) use of aspirin; Z79.51 Long term (current) use of inhaled steroids; Z79.84 Long term (current) use of oral hypoglycemic drugs; Z79.899 Other long term (current) drug therapy; Z88.5 Allergy status to narcotic agent; Z91.018 Allergy to other foods
CPT/HCPCS: 36415; 71046; 80053; 80061; 82550; 83735; 84443; 84484; 85025; 85379; 85610; 85730; 93005; 93306; 94640; 96365; 96366; 96368; 96376; 99291

== ENCOUNTER 2020-05-08 14:19 | Emergency (ER) | payer OTHER ==
[2020-05-08] MEDS ORDERED: DILTIAZEM DRIP BOLUS FROM BAG 1 MG SOLN IV ONE (14:54)
[2020-05-08] MEDS ORDERED: DILTIAZEM 125 MG in SODIUM CHLORIDE 0.9% 100 ML IV SCH (15:00)
[2020-05-08 15:16] LABS: Basophils % (A) 1 %; Eosinophils # (A) 0.3 k/uL (0-0.7); Eosinophils % (A) 3 %; HCT 46.9 % (39.0-53.0); Lymphocytes # (A) 1.4 k/uL (1.0-4.8); Lymphocytes % (A) 15 %; MCH 28.4 pg (25.0-35.0); MCV 88.9 fL (80.0-100.0); Mean Platelet Volume 8.1; Monocytes # (A) 0.4 k/uL (0-1.0); Monocytes % (A) 5 %; Neutrophils % (A) 76 %; Platelet Count 222 k/uL (150-450); RBC 5.27 m/uL (4.30-5.90); RDW 13.3 % (11.5-15.5); WBC 9.3 k/uL (3.8-10.6)
[2020-05-08 15:24] LABS: ALT 12 U/L (4-49); AST 18 U/L (17-59); African American GFR (CKD) >90 (>60 ml/min/1.73 sqM); Alkaline Phosphatase 109 U/L (38-126); Anion Gap 11 mmol/L; Blood Urea Nitrogen 6 mg/dL (9-20); Calcium 9.3 mg/dL (8.4-10.2); Carbon Dioxide 23 mmol/L (22-30); Chloride 97 mmol/L (98-107); Glucose 141 mg/dL (74-99); Magnesium 1.6 mg/dL (1.6-2.3); Non-African American GFR(CKD) >90 (>60 ml/min/1.73 sqM); Potassium 4.5 mmol/L (3.5-5.1); Sodium 131 mmol/L (137-145); Total Bilirubin 0.4 mg/dL (0.2-1.3); Total Protein 7.3 g/dL (6.3-8.2)
--- NOTE | 2020-05-08 15:24 | ED ---
General Adult HPI - General Chief complaint: Arrhythmia/Palpitations Stated complaint: Heart issues Time Seen by Provider: 05/08/20 14:25 Source: patient, RN notes reviewed, old records reviewed Mode of arrival: wheelchair Limitations: no limitations - History of Present Illness Initial comments: This is a 49-year-old male presents emergency with a past medical history significant for recent diagnosis of atrial fibrillation. Patient is on eliquis. Patient also states he been treated for a couple of infected teeth. Patient states she stepped eliquis last night because he was posting his teeth pulled today but he wasn't feeling right second emergency department. Patient felt a little short of breath but just felt a little weaker than normal and he took his pulse and was fast we decided come to the emergency department. Patient denies any chest pain. Patient denies any fever chills or cough. Patient denies any abdominal pain patient denies nausea vomiting diarrhea. - Related Data Home Medications Medication Instructions Recorded Confirmed Albuterol Sulfate [Proair Hfa] 2 puff INHALATION RT-Q4H PRN 04/10/20 04/10/20 Amoxicillin 500 mg PO DAILY PRN 04/10/20 04/10/20 Baclofen [Lioresal] 10 mg PO TID PRN 04/10/20 04/10/20 Budesonide/Formoterol Fumarate 2 puff INHALATION RT-BID 04/10/20 04/10/20 [Symbicort 160-4.5 Mcg Inhaler] HYDROcodone/APAP 5-325MG [[place] 1 - 2 tab PO Q4-6H PRN 04/10/20 04/10/20 5-325] Lovastatin [Altoprev] 20 mg PO DAILY 04/10/20 04/10/20 Omeprazole [PriLOSEC] 40 mg PO DAILY 04/10/20 04/10/20 Pregabalin [Lyrica] 50 mg PO DAILY PRN 04/10/20 04/10/20 amLODIPine BESYLATE/BENAZEPRIL 1 cap PO DAILY 04/10/20 04/10/20 [amLODIPine BESYLATE/BENAZEPRIL 5-40 MG] metFORMIN HCL [Glucophage] 1,000 mg PO BID 04/10/20 04/10/20 Acetaminophen [Tylenol] 650 mg PO Q3H PRN 05/08/20 05/08/20 Cholecalciferol [Vitamin D3 (25 1,000 unit PO DAILY 05/08/20 05/08/20 Mcg = 1000 Iu)] Magnesium 250 mg PO DAILY 05/08/20 05/08/20 Potassium Gluconate 198 mg PO DAILY 05/08/20 05/08/20 Tamsulosin HCl [Flomax] 0.4 mg PO DAILY 05/08/20 05/08/20 Thiamine HCl [Vitamin B-1] 200 mg PO DAILY 05/08/20 05/08/20 Previous Rx's Medication Instructions Recorded Apixaban [Eliquis] 5 mg PO BID #60 tab 04/11/20 Metoprolol Tartrate [Lopressor] 25 mg PO BID #60 tab 04/11/20 Allergies Allergy/AdvReac Type Severity Reaction Status Date / Time codeine Allergy Paralysis Verified 05/08/20 16:09 of Legs ergotamine [From Cafergot] Allergy Paralysis Verified 05/08/20 16:12 of Legs Review of Systems ROS Statement: Those systems with pertinent positive or pertinent negative responses have been documented in the HPI. ROS Other: All systems not noted in ROS Statement are negative. Past Medical History Past Medical History: Diabetes Mellitus Additional Past Medical History / Comment(s): neuropathy History of Any Multi-Drug Resistant Organisms: None Reported Additional Past Surgical History / Comment(s): toe amputation Past Psychological History: No Psychological Hx Reported Smoking Status: Current every day smoker Past Alcohol Use History: None Reported Past Drug Use History: Marijuana General Exam - General Exam Comments Initial Comments: GENERAL: Patient is well-developed and well-nourished. Patient is nontoxic and well- hydrated and is in mild distress. ENT: Neck is soft and supple. No significant lymphadenopathy is noted. Oropharynx is clear. Moist mucous membranes. Neck has full range of motion without eliciting any pain. EYES: The sclera were anicteric and conjunctiva were pink and moist. Extraocular movements were intact and pupils were equal round and reactive to light. Eyelids were unremarkable. PULMONARY: Unlabored respirations. Good breath sounds bilaterally. No audible rales rhonchi or wheezing was noted. CARDIOVASCULAR: There is a regular rate and rhythm without any murmurs gallops or rubs. ABDOMEN: Soft and nontender with normal bowel sounds. SKIN: Skin is clear with no lesions or rashes and otherwise unremarkable. NEUROLOGIC: Patient is alert and oriented x3. Cranial nerves II through XII are grossly intact. Patient's lower extremities are weak patient states this is chronic.. Normal speech, volume and content. Symmetrical smile. MUSCULOSKELETAL: Normal extremities with adequate strength and full range of motion. No lower extremity swelling or edema. No calf tenderness. LYMPHATICS: No significant lymphadenopathy is noted PSYCHIATRIC: Normal psychiatric evaluation. Limitations: no limitations Course Vital Signs 05/08/20 05/08/20 05/08/20 14:22 14:36 15:12 Temperature 98.0 F Pulse Rate 118 H 112 H Pulse Rate [ 124 H Pie Baker ] Respiratory 18 18 Rate Blood Pressure 119/82 152/77 O2 Sat by Pulse 96 94 L Oximetry 05/08/20 16:24 Temperature Pulse Rate 112 H Pulse Rate [ Pie Baker ] Respiratory 18 Rate Blood Pressure 117/82 O2 Sat by Pulse 96 Oximetry Medical Decision Making - Medical Decision Making EKG shows sinus tachycardia at 124 bpm MS interval 214 QRS 72 QT interval is 298 QTC is 425. Chest x-ray shows no acute abnormality. I went back in the room to give the patient his results and he had remembered at this point in time that he did not take his metoprolol this morning and he did not take it last night. Back at his heart rate monitor he can see that this morning he woke up relatively normal as the day progressed his heart rate faster and faster. Patient be giving his metoprolol here and be sent home to follow-up with his primary doctor - Lab Data Result diagrams: 05/08/20 15:07 05/08/20 15:07 Lab Results 05/08/20 05/08/20 05/08/20 Range/Units 15:07 15:07 15:07 WBC 9.3 (3.8-10.6) k/uL RBC 5.27 (4.30-5.90) m/uL Hgb 15.0 (13.0-17.5) gm/dL Hct 46.9 (39.0-53.0) % MCV 88.9 (80.0-100.0) fL MCH 28.4 (25.0-35.0) pg MCHC 32.0 (31.0-37.0) g/dL RDW 13.3 (11.5-15.5) % Plt Count 222 (150-450) k/uL Neutrophils % 76 % Lymphocytes % 15 % Monocytes % 5 % Eosinophils % 3 % Basophils % 1 % Neutrophils # 7.0 (1.3-7.7) k/uL Lymphocytes # 1.4 (1.0-4.8) k/uL Monocytes # 0.4 (0-1.0) k/uL Eosinophils # 0.3 (0-0.7) k/uL Basophils # 0.0 (0-0.2) k/uL PT 10.2 (9.0-12.0) sec INR 1.0 (<1.2) APTT 25.2 (22.0-30.0) sec D-Dimer (<0.60) mg/L FEU Sodium 131 L (137-145) mmol/L Potassium 4.5 (3.5-5.1) mmol/L Chloride 97 L (98-107) mmol/L Carbon Dioxide 23 (22-30) mmol/L Anion Gap 11 mmol/L BUN 6 L (9-20) mg/dL Creatinine 0.53 L (0.66-1.25) mg/dL Est GFR (CKD-EPI)AfAm >90 (>60 ml/min/1.73 sqM) Est GFR (CKD-EPI)NonAf >90 (>60 ml/min/1.73 sqM) Glucose 141 H (74-99) mg/dL Calcium 9.3 (8.4-10.2) mg/dL Magnesium 1.6 (1.6-2.3) mg/dL Total Bilirubin 0.4 (0.2-1.3) mg/dL AST 18 (17-59) U/L ALT 12 (4-49) U/L Alkaline Phosphatase 109 (38-126) U/L Troponin I (0.000-0.034) ng/mL Total Protein 7.3 (6.3-8.2) g/dL Albumin 4.0 (3.5-5.0) g/dL TSH 0.946 (0.465-4.680) mIU/L 05/08/20 05/08/20 Range/Units 15:07 15:31 WBC (3.8-10.6) k/uL RBC (4.30-5.90) m/uL Hgb (13.0-17.5) gm/dL Hct (39.0-53.0) % MCV (80.0-100.0) fL MCH (25.0-35.0) pg MCHC (31.0-37.0) g/dL RDW (11.5-15.5) % Plt Count (150-450) k/uL Neutrophils % % Lymphocytes % % Monocytes % % Eosinophils % % Basophils % % Neutrophils # (1.3-7.7) k/uL Lymphocytes # (1.0-4.8) k/uL Monocytes # (0-1.0) k/uL Eosinophils # (0-0.7) k/uL Basophils # (0-0.2) k/uL PT (9.0-12.0) sec INR (<1.2) APTT (22.0-30.0) sec D-Dimer <0.17 (<0.60) mg/L FEU Sodium (137-145) mmol/L Potassium (3.5-5.1) mmol/L Chloride (98-107) mmol/L Carbon Dioxide (22-30) mmol/L Anion Gap mmol/L BUN (9-20) mg/dL Creatinine (0.66-1.25) mg/dL Est GFR (CKD-EPI)AfAm (>60 ml/min/1.73 sqM) Est GFR (CKD-EPI)NonAf (>60 ml/min/1.73 sqM) Glucose (74-99) mg/dL Calcium (8.4-10.2) mg/dL Magnesium (1.6-2.3) mg/dL Total Bilirubin (0.2-1.3) mg/dL AST (17-59) U/L ALT (4-49) U/L Alkaline Phosphatase (38-126) U/L Troponin I <0.012 (0.000-0.034) ng/mL Total Protein (6.3-8.2) g/dL Albumin (3.5-5.0) g/dL TSH (0.465-4.680) mIU/L Disposition Clinical Impression: Sinus tachycardia Disposition: HOME SELF-CARE Condition: Good Instructions (If sedation given, give patient instructions): Tachycardia (ED) Additional Instructions: Take metoprolol as prescribed Is patient prescribed a controlled substance at d/c from ED?: No Referrals: Niki Antoine DO [Primary Care Provider] - 1-2 days Time of Disposition: 16:39
[2020-05-08 15:30] LABS: Partial Thromboplastin Time 25.2 sec (22.0-30.0); Prothrombin Time 10.2 sec (9.0-12.0)
--- NOTE | 2020-05-08 15:47 | XR ---
EXAMINATION TYPE: XR chest 2V DATE OF EXAM: 05/08/2020 COMPARISON: 04/10/2020 HISTORY: Shortness of breath TECHNIQUE: Frontal and lateral views of the chest are obtained. FINDINGS: Scattered senescent parenchymal changes noted. Hyperinflation compatible with COPD. No evidence for infiltrate. No evidence for atelectasis. Heart size is stable. Mediastinal structures are stable and grossly unremarkable. No evidence for hilar prominence. Degenerative changes dorsal spine. IMPRESSION: 1. No evidence for acute pulmonary disease.
[2020-05-08] MEDS ORDERED: METOPROLOL TARTRATE 25 MG TAB PO STA (16:29)
[2020-05-08 17:04] VITALS: BP 123/72; PULSE 105; RESP 16; TEMP 98.2
== END 2020-05-08 17:07 | disposition home or self-care (01) ==
LOC: EC 14:19
DX: R00.0 Tachycardia, unspecified (principal); R06.02 Shortness of breath; E11.40 Type 2 diabetes mellitus with diabetic neuropathy, unspecified; I48.91 Unspecified atrial fibrillation; F17.200 Nicotine dependence, unspecified, uncomplicated; Z79.84 Long term (current) use of oral hypoglycemic drugs; Z79.01 Long term (current) use of anticoagulants; Z88.5 Allergy status to narcotic agent; Z88.8 Allergy status to other drugs, medicaments and biological substances
CPT/HCPCS: 36415; 71046; 80053; 83735; 84443; 84484; 85025; 85379; 85610; 85730; 93005; 96374; 96375; 99285

== ENCOUNTER 2020-06-04 21:08 | Emergency (ER) | payer OTHER ==
[2020-06-04 21:12] VITALS: TEMP 98.3
[2020-06-04] MEDS ORDERED: IPRATROPIUM-ALBUTEROL 3 ML NEB INHALATION STA (22:25)
--- NOTE | 2020-06-04 23:18 | XR ---
EXAMINATION TYPE: XR chest 2V DATE OF EXAM: 06/04/2020 COMPARISON: 05/08/2020 HISTORY: Dysrhythmia TECHNIQUE: FINDINGS: Heart is normal. Lungs are clear of infiltrate. There is no pleural effusion. There are no hilar masses. Bony thorax is intact. There are chest leads. There is no pleural effusion. IMPRESSION: No active cardiopulmonary disease. Normal heart. No change.
--- NOTE | 2020-06-04 23:32 | ED ---
SOB HPI - General Source: patient Mode of arrival: wheelchair Limitations: no limitations <Ashlyn Singer - Last Filed: 06/05/20 00:20> <Geoffrey Briscoe - Last Filed: 06/05/20 01:41> - General Chief Complaint: Shortness of Breath Stated Complaint: SOB - History of Present Illness Initial Comments: Patient is a 49-year-old male past history of A. fib, diabetes or presents to emergency room with reported shortness of breath. Patient states that he's been short of breath on and off since Monday. States the lip mild chest pressure associated with it. He recently had dental extraction. States he was office follow-up this for a period of time because he had his surgery and then was taking Motrin. Patient denies pleuritic chest pain. No lower trauma edema. No history of DVT or PE. Has a history of asthma and is on Symbicort with rescue inhaler. States that they have not been helping his breathing. Patient continues to smoke. Denies cough or hemoptysis. No ripping or tearing sensation to his back. Denies exertional dyspnea. No other alleviating, precipitating or modifying factors (Ashlyn Singer) - Related Data Home Medications Medication Instructions Recorded Confirmed Albuterol Sulfate [Proair Hfa] 2 puff INHALATION RT-Q4H PRN 04/10/20 06/04/20 Amoxicillin 500 mg PO TID 04/10/20 06/04/20 Baclofen [Lioresal] 10 mg PO TID PRN 04/10/20 06/04/20 Budesonide/Formoterol Fumarate 2 puff INHALATION RT-BID 04/10/20 06/04/20 [Symbicort 160-4.5 Mcg Inhaler] HYDROcodone/APAP 5-325MG [[place] 1 - 2 tab PO Q4H PRN 04/10/20 06/04/20 5-325] Lovastatin [Altoprev] 20 mg PO DAILY 04/10/20 06/04/20 Omeprazole [PriLOSEC] 40 mg PO DAILY 04/10/20 06/04/20 Pregabalin [Lyrica] 50 mg PO DAILY PRN 04/10/20 06/04/20 amLODIPine BESYLATE/BENAZEPRIL 1 cap PO DAILY 04/10/20 06/04/20 [amLODIPine BESYLATE/BENAZEPRIL 5-40 MG] metFORMIN HCL [Glucophage] 1,000 mg PO BID 04/10/20 06/04/20 Acetaminophen [Tylenol] 650 mg PO Q3H PRN 05/08/20 06/04/20 Cholecalciferol [Vitamin D3 (25 1,000 unit PO DAILY 05/08/20 06/04/20 Mcg = 1000 Iu)] Magnesium 250 mg PO DAILY 05/08/20 06/04/20 Potassium Gluconate 198 mg PO DAILY 05/08/20 06/04/20 Tamsulosin HCl [Flomax] 0.4 mg PO DAILY 05/08/20 06/04/20 Thiamine HCl [Vitamin B-1] 200 mg PO DAILY 05/08/20 06/04/20 Varenicline [Chantix Continuing 1 mg PO BID 06/04/20 06/04/20 Pack] Previous Rx's Medication Instructions Recorded Apixaban [Eliquis] 5 mg PO BID #60 tab 04/11/20 Metoprolol Tartrate [Lopressor] 25 mg PO BID #60 tab 04/11/20 Allergies Allergy/AdvReac Type Severity Reaction Status Date / Time codeine Allergy Paralysis Verified 06/04/20 23:13 of Legs ergotamine [From Cafergot] Allergy Paralysis Verified 06/04/20 23:13 of Legs Review of Systems ROS Other: All systems not noted in ROS Statement are negative. <Ashlyn Singer - Last Filed: 06/05/20 00:20> ROS Other: All systems not noted in ROS Statement are negative. <Geoffrey Briscoe - Last Filed: 06/05/20 01:41> ROS Statement: Those systems with pertinent positive or pertinent negative responses have been documented in the HPI. Past Medical History Past Medical History: Diabetes Mellitus Additional Past Medical History / Comment(s): neuropathy History of Any Multi-Drug Resistant Organisms: None Reported Additional Past Surgical History / Comment(s): toe amputation Past Psychological History: No Psychological Hx Reported Smoking Status: Current every day smoker Past Alcohol Use History: None Reported Past Drug Use History: Marijuana <Ashlyn Singer - Last Filed: 06/05/20 00:20> General Exam Limitations: no limitations <Ashlyn Singer - Last Filed: 06/05/20 00:20> Course Vital Signs 06/04/20 06/04/20 06/04/20 21:08 23:41 23:51 Temperature 98.3 F Pulse Rate 92 78 82 Respiratory 20 Rate Blood Pressure 156/95 O2 Sat by Pulse 98 Oximetry 06/05/20 00:28 Temperature Pulse Rate 84 Respiratory 18 Rate Blood Pressure 137/77 O2 Sat by Pulse 99 Oximetry Medical Decision Making - Lab Data Result diagrams: 06/04/20 23:46 06/04/20 23:46 <Ashlyn Singer - Last Filed: 06/05/20 00:20> - Lab Data Result diagrams: 06/04/20 23:46 06/04/20 23:46 <Geoffrey Briscoe - Last Filed: 06/05/20 01:41> - Medical Decision Making This patient is a 49-year-old man, given to me he has a sign out pending his troponin. I discussed the lab results and gave him Dr. Hahn recommendation that he be admitted for telemetry monitoring, serial cardiac enzymes and cardiology consultation. The patient states that all the symptoms have resolved. He states that he does have a stress test scheduled for this month. He does want to go home. We discussed possibility of missing acute coronary syndrome and the patient still would like to go. He will definitely return if there are any symptoms that recur or new symptoms that began. He'll call his maintainer central office in the morning. (Geoffrey Briscoe) - Lab Data Lab Results 06/04/20 06/04/20 06/04/20 Range/Units 23:46 23:46 23:46 WBC 10.2 (3.8-10.6) k/uL RBC 5.44 (4.30-5.90) m/uL Hgb 15.3 (13.0-17.5) gm/dL Hct 47.3 (39.0-53.0) % MCV 86.9 (80.0-100.0) fL MCH 28.2 (25.0-35.0) pg MCHC 32.4 (31.0-37.0) g/dL RDW 13.3 (11.5-15.5) % Plt Count 220 (150-450) k/uL Neutrophils % 72 % Lymphocytes % 19 % Monocytes % 4 % Eosinophils % 4 % Basophils % 0 % Neutrophils # 7.3 (1.3-7.7) k/uL Lymphocytes # 2.0 (1.0-4.8) k/uL Monocytes # 0.4 (0-1.0) k/uL Eosinophils # 0.4 (0-0.7) k/uL Basophils # 0.0 (0-0.2) k/uL PT 10.7 (9.0-12.0) sec INR 1.0 (<1.2) APTT 26.9 (22.0-30.0) sec D-Dimer <0.17 (<0.60) mg/L FEU Sodium 134 L (137-145) mmol/L Potassium 3.9 (3.5-5.1) mmol/L Chloride 97 L (98-107) mmol/L Carbon Dioxide 27 (22-30) mmol/L Anion Gap 10 mmol/L BUN 7 L (9-20) mg/dL Creatinine 0.62 L (0.66-1.25) mg/dL Est GFR (CKD-EPI)AfAm >90 (>60 ml/min/1.73 sqM) Est GFR (CKD-EPI)NonAf >90 (>60 ml/min/1.73 sqM) Glucose 105 H (74-99) mg/dL Plasma Lactic Acid Robe (0.7-2.0) mmol/L Calcium 9.5 (8.4-10.2) mg/dL Total Bilirubin 0.5 (0.2-1.3) mg/dL AST 16 L (17-59) U/L ALT 11 (4-49) U/L Alkaline Phosphatase 104 (38-126) U/L Troponin I (0.000-0.034) ng/mL NT-Pro-B Natriuret Pep pg/mL Total Protein 7.4 (6.3-8.2) g/dL Albumin 4.2 (3.5-5.0) g/dL 06/04/20 06/04/20 06/04/20 Range/Units 23:46 23:46 23:46 WBC (3.8-10.6) k/uL RBC (4.30-5.90) m/uL Hgb (13.0-17.5) gm/dL Hct (39.0-53.0) % MCV (80.0-100.0) fL MCH (25.0-35.0) pg MCHC (31.0-37.0) g/dL RDW (11.5-15.5) % Plt Count (150-450) k/uL Neutrophils % % Lymphocytes % % Monocytes % % Eosinophils % % Basophils % % Neutrophils # (1.3-7.7) k/uL Lymphocytes # (1.0-4.8) k/uL Monocytes # (0-1.0) k/uL Eosinophils # (0-0.7) k/uL Basophils # (0-0.2) k/uL PT (9.0-12.0) sec INR (<1.2) APTT (22.0-30.0) sec D-Dimer (<0.60) mg/L FEU Sodium (137-145) mmol/L Potassium (3.5-5.1) mmol/L Chloride (98-107) mmol/L Carbon Dioxide (22-30) mmol/L Anion Gap mmol/L BUN (9-20) mg/dL Creatinine (0.66-1.25) mg/dL Est GFR (CKD-EPI)AfAm (>60 ml/min/1.73 sqM) Est GFR (CKD-EPI)NonAf (>60 ml/min/1.73 sqM) Glucose (74-99) mg/dL Plasma Lactic Acid Robe 1.0 (0.7-2.0) mmol/L Calcium (8.4-10.2) mg/dL Total Bilirubin (0.2-1.3) mg/dL AST (17-59) U/L ALT (4-49) U/L Alkaline Phosphatase (38-126) U/L Troponin I <0.012 (0.000-0.034) ng/mL NT-Pro-B Natriuret Pep 64 pg/mL Total Protein (6.3-8.2) g/dL Albumin (3.5-5.0) g/dL - EKG Data EKG Comments: EKG demonstrates a normal sinus rhythm with a ventricular rate of 84. TN interval 130. QRS 86. QTC of 437. Q wave in lead 3. No acute ST segment elevations or depressions (Ashlyn Singer) Disposition <Ashlyn Singer - Last Filed: 06/05/20 00:20> Is patient prescribed a controlled substance at d/c from ED?: No <Geoffrey Briscoe - Last Filed: 06/05/20 01:41> Clinical Impression: Chest pain Disposition: Left Against Medical Advice Condition: Fair Instructions (If sedation given, give patient instructions): Chest Pain (ED) Referrals: Niki Antoine DO [Primary Care Provider] - 1-2 days
[2020-06-05] LABS: Basophils % (A) 0 %; Eosinophils # (A) 0.4 k/uL (0-0.7); Eosinophils % (A) 4 %; HCT 47.3 % (39.0-53.0); HGB 15.3 gm/dL (13.0-17.5); Lymphocytes % (A) 19 %; MCH 28.2 pg (25.0-35.0); MCHC 32.4 g/dL (31.0-37.0); MCV 86.9 fL (80.0-100.0); Mean Platelet Volume 7.9; Monocytes # (A) 0.4 k/uL (0-1.0); Monocytes % (A) 4 %; Neutrophils # (A) 7.3 k/uL (1.3-7.7); Neutrophils % (A) 72 %; Platelet Count 220 k/uL (150-450); RBC 5.44 m/uL (4.30-5.90); RDW 13.3 % (11.5-15.5); WBC 10.2 k/uL (3.8-10.6)
[2020-06-05 00:08] LABS: ALT 11 U/L (4-49); AST 16 U/L (17-59); African American GFR (CKD) >90 (>60 ml/min/1.73 sqM); Albumin 4.2 g/dL (3.5-5.0); Alkaline Phosphatase 104 U/L (38-126); Anion Gap 10 mmol/L; Blood Urea Nitrogen 7 mg/dL (9-20); Calcium 9.5 mg/dL (8.4-10.2); Carbon Dioxide 27 mmol/L (22-30); Chloride 97 mmol/L (98-107); Glucose 105 mg/dL (74-99); Non-African American GFR(CKD) >90 (>60 ml/min/1.73 sqM); Potassium 3.9 mmol/L (3.5-5.1); Sodium 134 mmol/L (137-145); Total Bilirubin 0.5 mg/dL (0.2-1.3); Total Protein 7.4 g/dL (6.3-8.2)
[2020-06-05 00:12] LABS: D-Dimer <0.17 mg/L FEU (<0.60); Partial Thromboplastin Time 26.9 sec (22.0-30.0); Prothrombin Time 10.7 sec (9.0-12.0)
[2020-06-05 00:29] VITALS: RESP 18
[2020-06-05 01:51] VITALS: BP 132/71; PULSE 86
== END 2020-06-05 01:51 | disposition home or self-care (01) ==
LOC: EC 21:08
DX: R07.9 Chest pain, unspecified (principal); R06.02 Shortness of breath; E11.40 Type 2 diabetes mellitus with diabetic neuropathy, unspecified; J45.909 Unspecified asthma, uncomplicated; F17.200 Nicotine dependence, unspecified, uncomplicated; Z79.84 Long term (current) use of oral hypoglycemic drugs; Z88.5 Allergy status to narcotic agent; Z88.8 Allergy status to other drugs, medicaments and biological substances; Z53.29 Procedure and treatment not carried out because of patient's decision for other reasons
CPT/HCPCS: 36415; 71046; 80053; 83605; 83880; 84484; 85025; 85379; 85610; 85730; 93005; 94640; 99285

== ENCOUNTER 2020-09-09 06:21 | Day surgery (SDC) | payer OTHER ==
[2020-09-08 09:57] VITALS: BMI 51.0
[~2020-09-09 06:21] MED LIST: ALPRAZolam 0.25 MG TAB PO PRN; ALPRAZolam 0.5 MG TAB PO PRN; NITROGLYCERIN SL TABS 0.4 MG TAB SUBLINGUAL PRN; SODIUM CHLORIDE 0.9% 1,000 ML in EMPTY BAG 1 BAG IV ONE
[2020-09-09] MEDS ORDERED: SODIUM CHLORIDE 0.9% 1,000 ML IV ONE (06:48)
[2020-09-09] MEDS ORDERED: ASPIRIN 325 MG TAB PO ONE (07:00)
[2020-09-09] MEDS ORDERED: ATORVASTATIN 80 MG TAB PO ONE (07:00)
[2020-09-09 07:06] LABS: Glucose,Whole Blood 123 mg/dL (75-99)
[2020-09-09] MEDS ORDERED: VERAPAMIL 2.5 MG/ML 2 ML AMP ONE (07:13)
[2020-09-09] MEDS ORDERED: fentaNYL (PF) 50 MCG/ML 2 ML AMP ONE (07:14)
[2020-09-09] MEDS ORDERED: LIDOCAINE 1% INJ 10MG/ML (20 ML MDV) ONE (07:14)
[2020-09-09] MEDS ORDERED: HEPARIN SODIUM 1,000 UN/ML (10ML VL) ONE (07:14)
[2020-09-09 07:18] VITALS: RESP 16; TEMP 97.7
[2020-09-09] MEDS ORDERED: fentaNYL (PF) 50 MCG/ML 2 ML AMP IV ONE (07:58)
[2020-09-09] MEDS: MIDAZOLAM 2 MG/2 ML VIAL IVP ONE ×2 (08:03→08:07)
[2020-09-09] MEDS: LIDOCAINE 1% INJ 10MG/ML (20 ML MDV) SQ ONE ×2 (08:03→08:06)
[2020-09-09] MEDS ORDERED: VERAPAMIL SYRINGE (5 MG/10 ML) INTRAARTER ONE (08:04)
[2020-09-09] MEDS ORDERED: HEPARIN SODIUM 1,000 UN/ML (10ML VL) IV ONE (08:10)
[2020-09-09] MEDS ORDERED: IOPAMIDOL-370 125ML BTL INJ ONE (08:16)
[2020-09-09] MEDS ORDERED: RX INFO: IV CONTRAST WAS GIVEN 1 EACH MISC MISCELLANE PRN (08:28)
[2020-09-09] MEDS ORDERED: SODIUM CHLORIDE 0.9% 1,000 ML IV SCH (08:30)
[2020-09-09] MEDS ORDERED: [UNRECOGNIZED DRUG - OTHER] PO SCH (09:00)
[2020-09-09] MEDS ORDERED: PREGABALIN 50 MG CAP PO SCH (09:00)
[2020-09-09] MEDS ORDERED: TAMSULOSIN 0.4 MG CAP.ER.24H PO SCH (09:00)
[2020-09-09] MEDS ORDERED: NON FORMULARY DRUG (Magnesium [Magnesium] 250 MG Tablet) PO SCH (09:00)
[2020-09-09] MEDS ORDERED: BENAZEPRIL PO SCH (09:00)
[2020-09-09] MEDS ORDERED: LOVASTATIN 20 MG PO SCH (09:00)
[2020-09-09] MEDS ORDERED: NON FORMULARY DRUG (Thiamine Hcl [Vitamin B-1] 100 MG Tablet) PO SCH (09:00)
[2020-09-09] MEDS ORDERED: NON FORMULARY DRUG (Potassium Gluconate [Potassium Gluconate] 99 MG Tablet.Er) PO SCH (09:00)
[2020-09-09] MEDS ORDERED: AMLODIPINE BESYLATE PO SCH (09:00)
[2020-09-09] MEDS ORDERED: METOPROLOL TARTRATE 25 MG TAB PO SCH (09:00)
[2020-09-09] MEDS ORDERED: NON FORMULARY DRUG (Omeprazole 20 MG Capsule.Dr) PO SCH (09:00)
--- NOTE | 2020-09-09 12:45 | LTR ---
DATE OF SERVICE: 09/09/2020 RE: Stevenson Romeo Dear Dr. Antoine; I had the pleasure to perform cardiac catheterization on Mr. Romeo at [facility] on September 09, 2020 and a full copy of the procedure note will be forwarded to you. In brief, he was found to have mild intimal disease without any evidence of high-grade stenosis and based on those findings, I recommend continue medical therapy with aggressive risk modifications being initiated. Thank you again for allowing me to participate in this patient's personal care. Please feel free to call for any questions. Sincerely yours, MD TORIN Ramos / PHYLLISN: [id number] /
--- NOTE | 2020-09-09 12:45 | CC ---
CARDIAC CATHETERIZATION REPORT Mr. Romeo is a 49-year-old male with a known history of hypertension, hyperlipidemia, diabetes mellitus, chronic tobacco use, who has been complaining of episode of chest discomfort. He underwent myocardial perfusion imaging that revealed evidence of inducible ischemia involving the inferior wall. In view of that, recommendation made regarding cardiac catheterization. The procedures, risks, and complication were discussed with the patient who is in full understanding and agreement. PROCEDURE: Patient was brought to ammunition assembly laborer in a fasting semi-sedated state after receiving fentanyl and Benadryl and achieving moderate conscious sedated state. Using Xylocaine anesthesia and Seldinger technique, a 6-Marshallese sheath was introduced in the right radial artery. Selective right and left angiography were performed using 5-Marshallese 3.5 bend right and left Uy catheter. Multiple views of the coronary artery including hemiaxial views were obtained. The right Yu catheter was used to cross the aortic valve and left ventricular end-diastolic pressure was calculated. Following that, catheter and sheath were removed. Hemostasis was obtained with deployment of a TR band. There was no immediate complication. Patient is returned to his room in stable condition. Of note, the patient received 5000 units of intravenous heparin as well as intra-arterial verapamil. FINDINGS: LEFT MAIN: This is a large-sized vessel, bifurcating into left circumflex, left anterior descending artery. Left main coronary artery has a 10% plaque distally. The rest of the vessel has no high-grade stenosis. LEFT ANTERIOR DESCENDING ARTERY: This is a large-sized vessel, tapers down distal third, giving rise to small diagonal branch. The left anterior descending artery has mild plaque proximally of 10% to 20%. The rest of the vessel has no high-grade stenosis. LEFT CIRCUMFLEX: This is a nondominant vessel giving rise to a large obtuse marginal branch. The left circumflex as well as branches have no evidence of obstructive coronary artery disease. RIGHT CORONARY ARTERY: This is a large dominant vessel, bifurcating into PDA and posterolateral segment and branches. The right PDA reaches toward the inferoapical wall. The right coronary artery in mid segment has 20% plaque. The rest of the vessel has no high-grade stenosis. LEFT VENTRICULOGRAM: Left ventriculogram was not performed. HEMODYNAMICS: There was no gradient across the aortic valve. The left ventricle end- diastolic pressure was 5-10 mmHg. CONCLUSION: 1. Mild coronary artery disease involving the distal left main, LAD and the right coronary artery. 2. Right dominance. RECOMMENDATION: In view of finding anatomy, I recommend continue medical therapy with aggressive risk modifications being initiated. Those findings and recommendation were discussed with the patient his family and they are in full understanding and agreement. Duration of sedation is 15 minutes. TORIN / HAKEEM: [id number] /
[2020-09-09 13:11] VITALS: BP 118/55; PULSE 64
[2020-09-09] MEDS ORDERED: SYMBICORT 160-4.5 MCG INHALER INHALATION SCH (20:00)
== END 2020-09-09 12:45 | disposition home or self-care (01) ==
LOC: CATHCVL 06:21
PROVIDERS: ATTEND Internal Medicine Interventional Cardiology
DX: I25.10 Atherosclerotic heart disease of native coronary artery without angina pectoris (principal); I10 Essential (primary) hypertension; I48.0 Paroxysmal atrial fibrillation; R94.39 Abnormal result of other cardiovascular function study; F17.210 Nicotine dependence, cigarettes, uncomplicated; E78.2 Mixed hyperlipidemia; E11.9 Type 2 diabetes mellitus without complications; E78.00 Pure hypercholesterolemia, unspecified; Z82.49 Family history of ischemic heart disease and other diseases of the circulatory system; M19.90 Unspecified osteoarthritis, unspecified site; G47.33 Obstructive sleep apnea (adult) (pediatric); Z79.01 Long term (current) use of anticoagulants; Z79.84 Long term (current) use of oral hypoglycemic drugs; Z79.891 Long term (current) use of opiate analgesic; Z79.899 Other long term (current) drug therapy; Z88.5 Allergy status to narcotic agent
CPT/HCPCS: 93458; C1769; C1894; J2250; J2001; J3010; J1644; Q9967

== ENCOUNTER 2022-09-15 08:02 | Emergency (ER) | payer BC, OTHER ==
[2022-09-15 08:11] VITALS: TEMP 98.2
[2022-09-15 09:21] LABS: Basophils # (A) 0.1 k/uL (0-0.2); Basophils % (A) 1 %; Eosinophils # (A) 0.3 k/uL (0-0.7); Eosinophils % (A) 4 %; HCT 49.5 % (39.0-53.0); HGB 16.7 gm/dL (13.0-17.5); Lymphocytes # (A) 1.6 k/uL (1.0-4.8); Lymphocytes % (A) 19 %; MCH 29.6 pg (25.0-35.0); MCHC 33.7 g/dL (31.0-37.0); Mean Platelet Volume 9.3; Monocytes # (A) 0.4 k/uL (0-1.0); Monocytes % (A) 5 %; Neutrophils # (A) 6.2 k/uL (1.3-7.7); Neutrophils % (A) 71 %; Platelet Count 163 k/uL (150-450); RBC 5.63 m/uL (4.30-5.90); RDW 13.5 % (11.5-15.5); WBC 8.7 k/uL (3.8-10.6)
[2022-09-15 09:34] LABS: INR 1.2 (<1.2); Partial Thromboplastin Time 27.7 sec (22.0-30.0); Prothrombin Time 12.8 sec (9.0-12.0)
--- NOTE | 2022-09-15 09:35 | XR ---
EXAMINATION TYPE: XR chest 2V DATE OF EXAM: 09/15/2022 COMPARISON: 06/04/2020 HISTORY: 51-year-old male history of A. fib, dysrhythmia TECHNIQUE: AP and lateral views FINDINGS: Heart upper limits of normal in size. Aorta and pulmonary vasculature within normal limits. Mild inte rstitial prominence is unchanged. No consolidation or pleural effusion. [facility] in the mid and lower tho racic spine. IMPRESSION: Borderline heart size. Chronic changes. No acute process seen.
[2022-09-15 09:43] LABS: ALT 12 U/L (4-49); AST 17 U/L (17-59); African American GFR (CKD) >90 (>60 ml/min/1.73 sqM); Albumin 4.3 g/dL (3.5-5.0); Alkaline Phosphatase 113 U/L (38-126); Anion Gap 10 mmol/L; Blood Urea Nitrogen 6 mg/dL (9-20); Calcium 8.8 mg/dL (8.4-10.2); Carbon Dioxide 31 mmol/L (22-30); Chloride 97 mmol/L (98-107); Glucose 114 mg/dL (74-99); Magnesium 1.5 mg/dL (1.6-2.3); Non-African American GFR(CKD) >90 (>60 ml/min/1.73 sqM); Potassium 3.2 mmol/L (3.5-5.1); Sodium 138 mmol/L (137-145); Total Bilirubin 0.7 mg/dL (0.2-1.3); Total Protein 7.6 g/dL (6.3-8.2)
[2022-09-15] MEDS ORDERED: POTASSIUM CHLORIDE ER 20 MEQ TAB.ER PO STA (10:29)
--- NOTE | 2022-09-15 10:32 | ED ---
Arrhythmia/Palpitations HPI - General Chief Complaint: Arrhythmia/Palpitations Stated Complaint: AFib Time Seen by Provider: 09/15/22 08:40 Source: patient Mode of arrival: wheelchair Limitations: no limitations - History of Present Illness Initial Comments: 51-year-old male with past history of paroxysmal A. fib presents to the emergency department reporting that his heart rate has been uncontrolled over the past couple of days. He reports he is normally in a sinus rhythm however 2 days ago he felt like his heart began fast. He checked his heart rate and was found to be 125-140. This was after the patient smoked some marijuana. He took additional doses of his metoprolol in order to compensate for the elevated heart rate. States that he has had continued symptoms and this is what prompted his emergency visit. Denies any chest pain. Had previous cardiac catheterization in [address] Mora. Has not followed with him since the procedure. No history of coronary disease. He denies fevers, chills or cough. No recent medication changes. No abdominal pain. No history of thyroid issues. No other alleviating, precipitating or modifying factors - Related Data Home Medications Medication Instructions Recorded Confirmed Albuterol Sulfate [Proair Hfa] 2 puff INHALATION RT-Q4H PRN 04/10/20 09/15/22 Budesonide/Formoterol Fumarate 2 puff INHALATION RT-BID 04/10/20 09/15/22 [Symbicort 160-4.5 Mcg Inhaler] HYDROcodone/APAP 5-325MG [[place] 1 - 2 tab PO Q4H PRN 04/10/20 09/15/22 5-325] Lovastatin [Altoprev] 20 mg PO DAILY 04/10/20 09/15/22 Pregabalin [Lyrica] 50 mg PO BID 04/10/20 09/15/22 amLODIPine BESYLATE/BENAZEPRIL 1 cap PO DAILY 04/10/20 09/15/22 [amLODIPine BESYLATE/BENAZEPRIL 5-40 MG] metFORMIN HCL [Glucophage] 1,000 mg PO BID 04/10/20 09/15/22 Tamsulosin HCl [Flomax] 0.4 mg PO DAILY 05/08/20 09/15/22 FLUoxetine HCL [PROzac] 20 mg PO DAILY 09/08/20 09/15/22 Baclofen [Lioresal] 20 mg PO BID PRN 09/15/22 09/15/22 Cholecalciferol [Vitamin D3 (25 25 mcg PO BID 09/15/22 09/15/22 Mcg = 1000 Iu)] Eszopiclone [Lunesta] 3 mg PO HS PRN 09/15/22 09/15/22 Lovastatin [Mevacor] 20 mg PO HS 09/15/22 09/15/22 Omeprazole 40 mg PO DAILY 09/15/22 09/15/22 Tamsulosin [Flomax] 0.4 mg PO DAILY 09/15/22 09/15/22 Previous Rx's Medication Instructions Recorded Apixaban [Eliquis] 5 mg PO BID #60 tab 04/11/20 Metoprolol Tartrate [Lopressor] 25 mg PO BID #60 tab 04/11/20 Metoprolol Tartrate [Lopressor] 50 mg PO BID #60 tab 09/15/22 Potassium Chloride ER [K-Dur 20] 20 meq PO DAILY #5 tab 09/15/22 Allergies Allergy/AdvReac Type Severity Reaction Status Date / Time codeine AdvReac Paralysis Verified 09/15/22 11:06 of Legs ergotamine [From Cafergot] AdvReac Paralysis Verified 09/15/22 11:06 of Legs Review of Systems ROS Statement: Those systems with pertinent positive or pertinent negative responses have been documented in the HPI. ROS Other: All systems not noted in ROS Statement are negative. Past Medical History Past Medical History: Asthma, Diabetes Mellitus, GERD/Reflux, Hyperlipidemia, Hypertension Additional Past Medical History / Comment(s): neuropathy, MIGRAINE HEADACHE History of Any Multi-Drug Resistant Organisms: ESBL Date of last positivie culture/infection: 08/25/20 MDRO Source:: ESBL URINE Additional Past Surgical History / Comment(s): toe amputation Past Anesthesia/Blood Transfusion Reactions: No Reported Reaction Past Psychological History: Depression Smoking Status: Current every day smoker - Past Family History Mother Family Medical History: No Reported History General Exam Limitations: no limitations General appearance: alert, in no apparent distress Head exam: Present: atraumatic, normocephalic, normal inspection Eye exam: Present: normal appearance, PERRL, EOMI. Absent: scleral icterus, conjunctival injection, periorbital swelling ENT exam: Present: normal exam, mucous membranes moist Neck exam: Present: normal inspection. Absent: tenderness, meningismus, lymphadenopathy Respiratory exam: Present: normal lung sounds bilaterally. Absent: respiratory distress, wheezes, rales, rhonchi, stridor Cardiovascular Exam: Present: regular rate, irregular rhythm, normal heart sounds. Absent: systolic murmur, diastolic murmur, rubs, gallop, clicks GI/Abdominal exam: Present: soft, normal bowel sounds. Absent: distended, tenderness, guarding, rebound, rigid Extremities exam: Present: normal inspection, full ROM, normal capillary refill. Absent: tenderness, pedal edema, joint swelling, calf tenderness Back exam: Present: normal inspection Neurological exam: Present: alert, oriented X3, CN II-XII intact Psychiatric exam: Present: normal affect, normal mood Skin exam: Present: warm, dry, intact, normal color. Absent: rash Course Vital Signs 09/15/22 09/15/22 09/15/22 08:09 11:10 11:15 Temperature 98.2 F Pulse Rate 77 Respiratory 16 Rate Blood Pressure 172/79 O2 Sat by Pulse 96 86 L 96 Oximetry 09/15/22 11:47 Temperature Pulse Rate 74 Respiratory 20 Rate Blood Pressure 127/67 O2 Sat by Pulse 97 Oximetry EKG Findings - EKG Comments: EKG Findings:: EKG demonstrates A. fib with a rate of 73. QRS 85. QTC of 394. No acute ST segment elevations or depressions EKG was evaluated by myself Medical Decision Making - Medical Decision Making Upon arrival he was placed into room 8. A thorough history and physical exam was performed. IV access is established laboratory studies were conducted. Patient's blood work is remarkable for a potassium of 3.2 and a magnesium of 1.5. Electrolytes I replaced. Patient does remain in A. fib with a rate between 90 and 105. I discussed this with Dr. Burgess. He recommends replacement of the electrolytes. He also recommends the patient be based on metoprolol 50 mg twice daily. He needs to be seen in the blueprint duplicator's office next week. I did discuss this with the patient. He feels comfortable discharge home. I will be placing him on potassium for the next several days. He takes a magnesium supplement. He is to call the office to make an appointment and needs repeat laboratory studies to ensure that his labs have improved. Patient was agreeable to this. Instructed to return for any new or worsening symptoms. Patient was discharged in stable condition - Lab Data Result diagrams: 09/15/22 09:11 09/15/22 09:11 Lab Results 09/15/22 09/15/22 09/15/22 Range/Units 09:11 09:11 09:11 WBC 8.7 (3.8-10.6) k/uL RBC 5.63 (4.30-5.90) m/uL Hgb 16.7 (13.0-17.5) gm/dL Hct 49.5 (39.0-53.0) % MCV 88.0 (80.0-100.0) fL MCH 29.6 (25.0-35.0) pg MCHC 33.7 (31.0-37.0) g/dL RDW 13.5 (11.5-15.5) % Plt Count 163 (150-450) k/uL MPV 9.3 Neutrophils % 71 % Lymphocytes % 19 % Monocytes % 5 % Eosinophils % 4 % Basophils % 1 % Neutrophils # 6.2 (1.3-7.7) k/uL Lymphocytes # 1.6 (1.0-4.8) k/uL Monocytes # 0.4 (0-1.0) k/uL Eosinophils # 0.3 (0-0.7) k/uL Basophils # 0.1 (0-0.2) k/uL PT 12.8 H (9.0-12.0) sec INR 1.2 H (<1.2) APTT 27.7 (22.0-30.0) sec Sodium 138 (137-145) mmol/L Potassium 3.2 L (3.5-5.1) mmol/L Chloride 97 L (98-107) mmol/L Carbon Dioxide 31 H (22-30) mmol/L Anion Gap 10 mmol/L BUN 6 L (9-20) mg/dL Creatinine 0.66 (0.66-1.25) mg/dL Est GFR (CKD-EPI)AfAm >90 (>60 ml/min/1.73 sqM) Est GFR (CKD-EPI)NonAf >90 (>60 ml/min/1.73 sqM) Glucose 114 H (74-99) mg/dL Calcium 8.8 (8.4-10.2) mg/dL Magnesium 1.5 L (1.6-2.3) mg/dL Total Bilirubin 0.7 (0.2-1.3) mg/dL AST 17 (17-59) U/L ALT 12 (4-49) U/L Alkaline Phosphatase 113 (38-126) U/L Troponin I (0.000-0.034) ng/mL Total Protein 7.6 (6.3-8.2) g/dL Albumin 4.3 (3.5-5.0) g/dL TSH (0.465-4.680) mIU/L 09/15/22 09/15/22 Range/Units 09:11 09:11 WBC (3.8-10.6) k/uL RBC (4.30-5.90) m/uL Hgb (13.0-17.5) gm/dL Hct (39.0-53.0) % MCV (80.0-100.0) fL MCH (25.0-35.0) pg MCHC (31.0-37.0) g/dL RDW (11.5-15.5) % Plt Count (150-450) k/uL MPV Neutrophils % % Lymphocytes % % Monocytes % % Eosinophils % % Basophils % % Neutrophils # (1.3-7.7) k/uL Lymphocytes # (1.0-4.8) k/uL Monocytes # (0-1.0) k/uL Eosinophils # (0-0.7) k/uL Basophils # (0-0.2) k/uL PT (9.0-12.0) sec INR (<1.2) APTT (22.0-30.0) sec Sodium (137-145) mmol/L Potassium (3.5-5.1) mmol/L Chloride (98-107) mmol/L Carbon Dioxide (22-30) mmol/L Anion Gap mmol/L BUN (9-20) mg/dL Creatinine (0.66-1.25) mg/dL Est GFR (CKD-EPI)AfAm (>60 ml/min/1.73 sqM) Est GFR (CKD-EPI)NonAf (>60 ml/min/1.73 sqM) Glucose (74-99) mg/dL Calcium (8.4-10.2) mg/dL Magnesium (1.6-2.3) mg/dL Total Bilirubin (0.2-1.3) mg/dL AST (17-59) U/L ALT (4-49) U/L Alkaline Phosphatase (38-126) U/L Troponin I 0.014 (0.000-0.034) ng/mL Total Protein (6.3-8.2) g/dL Albumin (3.5-5.0) g/dL TSH 1.660 (0.465-4.680) mIU/L Disposition Clinical Impression: Atrial fibrillation, Hypomagnesemia, Hypokalemia Disposition: HOME SELF-CARE Condition: Stable Instructions (If sedation given, give patient instructions): A-fib (Atrial Fibrillation) (ED) Additional Instructions: Please increase yourr metoprolol to 50 mg twice a day. Take magnesium 400 mg e very day. I will prescribe potassium replacement for the next week. Follow up at the cardiology office. They will call you however if he do not hear from them by Monday, you need to call them. They need to repeat your magnesium and potassium levels. Return to the emergency room for any new or worsening symptoms Prescriptions: Potassium Chloride ER [K-Dur 20] 20 meq PO DAILY #5 tab Metoprolol Tartrate [Lopressor] 50 mg PO BID #60 tab Is patient prescribed a controlled substance at d/c from ED?: No Referrals: David Burgess MD [STAFF PHYSICIAN] - 1-2 days Niki Antoine DO [Primary Care Provider] - 1-2 days ([facility] will contact you regarding an appointment time next week. If no phone call by Monday please call there office. ) Time of Disposition: 11:32
[2022-09-15] MEDS: MAGNESIUM SULFATE-D5W PMX 1 GM in DEXTROSE/WATER 1 100ML.BAG IVPB SCH ×2 (10:40→11:46)
[2022-09-15 11:47] VITALS: BP 127/67; PULSE 74; RESP 20
== END 2022-09-15 11:20 | disposition home or self-care (01) ==
LOC: EC 08:02
DX: I48.91 Unspecified atrial fibrillation (principal); E83.42 Hypomagnesemia; J45.909 Unspecified asthma, uncomplicated; E11.9 Type 2 diabetes mellitus without complications; K21.9 Gastro-esophageal reflux disease without esophagitis; E78.5 Hyperlipidemia, unspecified; I10 Essential (primary) hypertension; F32.A Depression, unspecified; F17.200 Nicotine dependence, unspecified, uncomplicated; Z88.5 Allergy status to narcotic agent; Z88.8 Allergy status to other drugs, medicaments and biological substances; Z79.83 Long term (current) use of bisphosphonates; Z79.51 Long term (current) use of inhaled steroids; Z79.84 Long term (current) use of oral hypoglycemic drugs; Z79.01 Long term (current) use of anticoagulants; Z79.899 Other long term (current) drug therapy
CPT/HCPCS: 36415; 93005; 80053; 84443; 83735; 84484; 85025; 85610; 85730; 71046; 99285; J3475

== ENCOUNTER 2025-04-23 20:04 | Observation (INO) | payer BC ==
[2025-04-23 20:10] VITALS: RESP 18; TEMP 97.6
--- NOTE | 2025-04-23 20:30 | ED ---
General Adult HPI - General Source: patient, RN notes reviewed Mode of arrival: ambulatory Limitations: no limitations <Yulia Almodovar - Last Filed: 04/23/25 20:29> - General Source: patient, RN notes reviewed, old records reviewed Mode of arrival: ambulatory Limitations: no limitations - History of Present Illness -: unknown Location: head Consistency: constant Improves with: none Worsens with: none Associated Symptoms: confusion Treatments Prior to Arrival: none <Chavo Ortiz - Last Filed: 04/29/25 19:49> - General Chief complaint: Fall Stated complaint: Fall/Confusion Time Seen by Provider: 04/23/25 20:15 - History of Present Illness Initial comments: Quick [id number] male presenting with for concerns of a possible fall and confusion. Patient believes that he may have fell earlier today and mom states that has been acting confused. She states that he moved on the furniture. Patient has no complaints at this time. Is denying headache, neck pain, chest pain, abdominal pain, difficulty breathing. (Yulia Almodovar) This is a 54-year-old male to the ER for evaluation of a fall with confusion. There was concern if patient did or did not fall earlier today but has been confused with inability to remember acute event. Does not remember how he got here or why he is here and unsure of why he is here but he himself denies complaints, he is confused during history of present illness at bedside states he is not acting appropriately (Chavo Ortiz) - Related Data Home Medications Medication Instructions Recorded Confirmed Budesonide/Formoterol Fumarate 2 puff INHALATION RT-BID 04/10/20 04/29/25 [Symbicort 160-4.5 Mcg Inhaler] HYDROcodone/APAP 5-325MG [[place] 1 - 2 tab PO Q6H PRN 04/10/20 04/29/25 5-325] Pregabalin [Lyrica] 50 mg PO BID 04/10/20 04/29/25 Baclofen [Lioresal] 20 mg PO BID PRN 09/15/22 04/29/25 Omeprazole 40 mg PO DAILY 09/15/22 04/29/25 Albuterol Sulfate [Ventolin HFA] 2 puff INHALATION RT-DAILY 04/24/25 04/29/25 FLUoxetine HCL 40 mg PO DAILY 04/24/25 04/29/25 Fluticasone/Vilanterol [Breo 1 puff INHALATION RT-DAILY 04/24/25 04/29/25 Ellipta 100-25 Mcg Inhalr] Loratadine [Claritin] 10 mg PO DAILY 04/24/25 04/29/25 SUMAtriptan succinate [Imitrex] 100 mg PO BID PRN 04/24/25 04/29/25 Semaglutide [Wegovy] 1 mg SQ SA 04/24/25 04/29/25 Sildenafil [Revatio] 60 - 100 mg PO DAILY PRN 04/24/25 04/29/25 Zolpidem [Ambien] 10 mg PO HS PRN 04/24/25 04/29/25 tadalafiL 20 mg PO DAILY PRN 04/24/25 04/29/25 Previous Rx's Medication Instructions Recorded Apixaban [Eliquis] 5 mg PO BID #60 tab 04/11/20 Metoprolol Tartrate [Lopressor] 50 mg PO BID #60 tab 09/15/22 Allergies Allergy/AdvReac Type Severity Reaction Status Date / Time codeine AdvReac Paralysis Verified 04/29/25 14:28 of Legs ergotamine [From Cafergot] AdvReac Paralysis Verified 04/29/25 14:28 of Legs Review of Systems ROS Other: All systems not noted in ROS Statement are negative. <Yulia Almodovar - Last Filed: 04/23/25 20:29> ROS Other: All systems not noted in ROS Statement are negative. <Chavo Ortiz - Last Filed: 04/29/25 19:49> ROS Statement: Those systems with pertinent positive or pertinent negative responses have been documented in the HPI. Past Medical History Past Medical History: Asthma, Diabetes Mellitus, GERD/Reflux, Hyperlipidemia, Hypertension Additional Past Medical History / Comment(s): neuropathy, MIGRAINE HEADACHE History of Any Multi-Drug Resistant Organisms: ESBL Date of last positivie culture/infection: 08/25/20 MDRO Source:: ESBL URINE Additional Past Surgical History / Comment(s): toe amputation Past Anesthesia/Blood Transfusion Reactions: No Reported Reaction Past Psychological History: Depression Smoking Status: Current every day smoker Past Alcohol Use History: None Reported Past Drug Use History: None Reported - Past Family History Mother Family Medical History: No Reported History <Yulia Almodovar - Last Filed: 04/23/25 20:29> General Exam Limitations: no limitations <Yulia Almodovar - Last Filed: 04/23/25 20:29> Limitations: altered mental status, physical limitation General appearance: alert, in no apparent distress Head exam: Present: atraumatic, normocephalic, normal inspection Eye exam: Present: normal appearance, PERRL, EOMI. Absent: scleral icterus, conjunctival injection, periorbital swelling ENT exam: Present: normal exam, mucous membranes moist Neck exam: Present: normal inspection. Absent: tenderness, meningismus, lymphadenopathy Respiratory exam: Present: normal lung sounds bilaterally. Absent: respiratory distress, wheezes, rales, rhonchi, stridor Cardiovascular Exam: Present: regular rate, normal rhythm, normal heart sounds. Absent: systolic murmur, diastolic murmur, rubs, gallop, clicks GI/Abdominal exam: Present: soft, normal bowel sounds. Absent: distended, tenderness, guarding, rebound, rigid Extremities exam: Present: normal inspection, full ROM, normal capillary refill. Absent: tenderness, pedal edema, joint swelling, calf tenderness Back exam: Present: normal inspection Neurological exam: Present: alert, oriented X3, CN II-XII intact Psychiatric exam: Present: normal affect, normal mood Skin exam: Present: warm, dry, intact, normal color. Absent: rash <Chavo Ortiz - Last Filed: 04/29/25 19:49> - General Exam Comments Initial Comments: Visual Physical Exam Vital signs reviewed General: Well-appearing, nontoxic, no acute distress. Head: Normocephalic, atraumatic Eyes: PERRLA, EOMI ENT: Airway patent Chest: Nonlabored breathing Skin: No visual rash, normal skin tone Neuro: Alert and oriented 3 Musculoskeletal: No gross abnormalities (Stieler,Yulia) Course <Chavo Ortiz - Last Filed: 04/29/25 19:49> Vital Signs 04/23/25 04/23/25 04/24/25 20:07 23:30 00:25 Temperature 97.6 F Pulse Rate 65 110 H 107 H Respiratory 18 18 18 Rate Blood Pressure 160/75 145/111 135/106 O2 Sat by Pulse 94 L 97 98 Oximetry 04/24/25 04/24/25 04/24/25 02:00 03:00 06:33 Temperature Pulse Rate 100 108 H 107 H Respiratory 18 18 18 Rate Blood Pressure 151/105 149/99 150/102 O2 Sat by Pulse 98 98 95 Oximetry - Reevaluation(s) Reevaluation #1: 04/24/25 03:23 Medical records reviewed (Chavo Ortiz) Reevaluation #2: 04/24/25 03:23 Patient remains confused with difficulty of recent memory (Chavo Ortiz) Reevaluation #3: 04/24/25 03:23 Patient informed of results questions answered (Chavo Ortiz) Reevaluation #4: Was pt. sent in by a medical professional or institution (LEXUS Vargas, SENIOR COST ACCOUNTANT, urgent care, hospital, or fdc...) When possible be specific @ -no Did you speak to anyone other than the patient for history (EMS, parent, family, police, friend...)? What history was obtained from this source @ -no Did you review nursing and triage notes (agree or disagree)? Why? @ -agree Are old charts reviewed (outside hosp., previous admission, EMS record, old EKG, old radiological studies, urgent care reports/EKG's, fdc records)? Report findings @ -yes Differential Diagnosis (chest pain, altered mental status, abdominal pain women, abdominal pain men, vaginal bleeding, weakness, fever, dyspnea, syncope, headache, dizziness, GI bleed, back pain, seizure, CVA, palpatations, mental health, musculoskeletal)? @ -prior EKG interpreted by me (3pts min.). @ -yes X-rays interpreted by me (1pt min.). @ -yes negative for acute disease CT interpreted by me (1pt min.). @ -yes negative for acute disease U/S interpreted by me (1pt. min.). @ -no What testing was considered but not performed or refused? (CT, X-rays, U/S, labs)? Why? @ -none What meds were considered but not given or refused? Why? @ -none Did you discuss the management of the patient with other professionals (professionals i.e. Dr., PA, SENIOR COST ACCOUNTANT, lab, RT, psych nurse, social services manager, records officer, teacher, global chief creative officer, case management assistant)? Give summary @ -no Was smoking cessation discussed for >3mins.? @ -no Was critical care preformed (if so, how long)? @ -no Were there social determinants of health that impacted care today? How? (Homelessness, low income, unemployed, alcoholism, drug addiction, transportation, low edu. Level, literacy, decrease access to med. care, long term, rehab)? @ -none Was there de-escalation of care discussed even if they declined (Discuss DNR or withdrawal of care, Hospice)? DNR status @ -no What co-morbidities impacted this encounter? (DM, HTN, Smoking, COPD, CAD, Cancer, CVA, ARF, Chemo, Hep., AIDS, mental health diagnosis, sleep apnea, morbid obesity)? @ -none Was patient admitted / discharged? Hospital course, mention meds given and route, prescriptions, significant lab abnormalities, going to OR and other pertinent info. @ - 54 male to ER for evaluation of altered mental status confusion and retrograde amnesia likely transient global versus retrograde amnesia because uncertain but CT brain and lab testing is normal patient will admit for neurolog y evaluation Admitted Undiagnosed new problem with uncertain prognosis? @ -no Drug Therapy requiring intensive monitoring for toxicity (Heparin, Nitro, Insulin, Cardizem)? @ -no Were any procedures done? @ -no Diagnosis/symptom? @ -Altered mental status with amnesia Acute, or Chronic, or Acute on Chronic? @ -Acute Uncomplicated (without systemic symptoms) or Complicated (systemic symptoms)? @ -Complicated Side effects of treatment? @ -no Exacerbation, Progression, or Severe Exacerbation? @ -exacerbation Poses a threat to life or bodily function? How? (Chest pain, USA, PA, pneumonia, PE, COPD, DKA, ARF, appy, cholecystitis, CVA, Diverticulitis, Homicidal, Suicidal, threat to staff... and all critical care pts) @ -no (Chavo Ortiz) Reevaluation #5: Differential Altered Mental Status: Hypoglycemia, DKA, hypercapnia, ETOH, overdose, CO poisoning, trauma, myxedema coma, HTN encephalopathy, infection, encephalitis, psychosis, intercranial hemorrhage, hepatic encephalopathy, meningitis, CVA, this is not meant to be an all-inclusive list (Chavo Ortiz) - Consultations Consultation #1: Spoke with [facility] agrees to admit this patient (Chavo Ortiz) EKG Findings - EKG Comments: EKG Findings:: EKG is A-fib with RVR 112 QRS 97 QTc 423 - EKG Results: EKG: interpreted by ERMD <Chavo Ortiz - Last Filed: 04/29/25 19:49> Medical Decision Making <Yulia Almodovar - Last Filed: 04/23/25 20:29> - Lab Data Result diagrams: 04/23/25 22:44 04/23/25 22:44 - EKG Data -: EKG Interpreted by Me (EKG is possible for atrial fibrillation with RVR) - Radiology Data Radiology results: report reviewed (CT brain C-spine chest x-ray negative for acute disease), image reviewed <Chavo Ortiz - Last Filed: 04/29/25 19:49> - Medical Decision Making I completed the quick note portion of this chart signed Yulia Almodovar PA-C (Yulia Almodovar) 54 male to ER for evaluation of altered mental status confusion and retrograde amnesia likely transient global versus retrograde amnesia because uncertain but CT brain and lab testing is normal patient will admit for neurology evaluation (Chavo Ortiz) - Lab Data Lab Results 04/23/25 04/23/25 04/23/25 Range/Units 22:44 22:44 22:44 WBC 6.28 (4.50-10.00) 10*3/uL RBC 5.57 (4.40-5.60) 10*6/uL Hgb 17.1 H (13.0-17.0) g/dL Hct 48.3 (39.6-50.0) % MCV 86.7 (80.0-97.0) fL MCH 30.7 (27.0-32.0) pg MCHC 35.4 (32.0-37.0) g/dL Plt Count 142 (140-440) 10*3/uL MPV 10.8 (9.5-12.2) fL Immature Gran % (Auto) 0.3 % Neutrophils % 78.4 % Lymphocytes % 15.1 % Monocytes % 4.6 % Eosinophils % 1.1 % Basophils % 0.5 % Immature Gran # 0.02 (0.00-0.04) 10*3/uL Neutrophils # 4.92 (1.80-7.70) 10*3/uL Lymphocytes # 0.95 (0.90-5.00) 10*3/uL Monocytes # 0.29 (0.20-1.00) 10*3/uL Eosinophils # 0.07 (0.04-0.35) 10*3/uL Basophils # 0.03 (0.00-0.10) 10*3/uL PT 12.1 (10.0-12.5) sec INR 1.1 (<1.2) APTT 25.8 (22.0-30.0) sec Sodium 133 L (137-145) mmol/L Potassium 3.3 L (3.5-5.1) mmol/L Chloride 94 L (98-107) mmol/L Carbon Dioxide 27 (22-30) mmol/L Anion Gap 12 mmol/L BUN 8 L (9-20) mg/dL Creatinine 0.65 L (0.66-1.25) mg/dL Est GFR (CKD-EPI)AfAm >90 (>60 ml/min/1.73 sqM) Est GFR (CKD-EPI)NonAf >90 (>60 ml/min/1.73 sqM) Glucose 111 H (74-99) mg/dL Calcium 9.0 (8.4-10.2) mg/dL Phosphorus 3.1 (2.5-4.5) mg/dL Magnesium 1.5 L (1.6-2.3) mg/dL Total Bilirubin 1.2 (0.2-1.3) mg/dL AST 24 (17-59) U/L ALT 9 (4-49) U/L Alkaline Phosphatase 114 (38-126) U/L Ammonia (<30) umol/L Troponin I (0.000-0.034) ng/mL Total Protein 8.1 (6.3-8.2) g/dL Albumin 4.4 (3.5-5.0) g/dL Serum Alcohol <10 mg/dL 04/23/25 04/23/25 Range/Units 22:44 22:44 WBC (4.50-10.00) 10*3/uL RBC (4.40-5.60) 10*6/uL Hgb (13.0-17.0) g/dL Hct (39.6-50.0) % MCV (80.0-97.0) fL MCH (27.0-32.0) pg MCHC (32.0-37.0) g/dL Plt Count (140-440) 10*3/uL MPV (9.5-12.2) fL Immature Gran % (Auto) % Neutrophils % % Lymphocytes % % Monocytes % % Eosinophils % % Basophils % % Immature Gran # (0.00-0.04) 10*3/uL Neutrophils # (1.80-7.70) 10*3/uL Lymphocytes # (0.90-5.00) 10*3/uL Monocytes # (0.20-1.00) 10*3/uL Eosinophils # (0.04-0.35) 10*3/uL Basophils # (0.00-0.10) 10*3/uL PT (10.0-12.5) sec INR (<1.2) APTT (22.0-30.0) sec Sodium (137-145) mmol/L Potassium (3.5-5.1) mmol/L Chloride (98-107) mmol/L Carbon Dioxide (22-30) mmol/L Anion Gap mmol/L BUN (9-20) mg/dL Creatinine (0.66-1.25) mg/dL Est GFR (CKD-EPI)AfAm (>60 ml/min/1.73 sqM) Est GFR (CKD-EPI)NonAf (>60 ml/min/1.73 sqM) Glucose (74-99) mg/dL Calcium (8.4-10.2) mg/dL Phosphorus (2.5-4.5) mg/dL Magnesium (1.6-2.3) mg/dL Total Bilirubin (0.2-1.3) mg/dL AST (17-59) U/L ALT (4-49) U/L Alkaline Phosphatase (38-126) U/L Ammonia 13 (<30) umol/L Troponin I <0.012 (0.000-0.034) ng/mL Total Protein (6.3-8.2) g/dL Albumin (3.5-5.0) g/dL Serum Alcohol mg/dL Disposition <Yulia Almodovar - Last Filed: 04/23/25 20:29> Is patient prescribed a controlled substance at d/c from ED?: No Time of Disposition: 02:00 <Chavo Ortiz - Last Filed: 04/29/25 19:49> Clinical Impression: Atrial fibrillation with rapid ventricular response, Hypomagnesemia syndrome, Confusion, Altered mental status, Retrograde amnesia Disposition: ADMITTED IP TO THIS HOSP Condition: Fair
--- NOTE | 2025-04-23 21:37 | CT ---
EXAMINATION TYPE: CT brain rajiine wo con DATE OF EXAM: 04/23/2025 9:11 PM COMPARISON: None. CLINICAL INDICATION: Male, 54 years old with history of fall/confusion, fall/confusion, pain TECHNIQUE: CT of the brain is performed utilizing 3 mm thick sections through the posterior fossa and 3 mm thick sections through the remaining calvarium. Study is performed within 24 hours of arrival to the hospital. Contrast used: mL of , (none if empty) CT DLP: 1736.1 mGycm, Automated exposure control for dose reduction was used. FINDINGS: No abnormal hyperdensity is present to suggest an acute intracranial hemorrhage. No mass lesion is evident. No acute infarcts are evident. Patchy periventricular white matter hypodensity is present, likely on the basis of chronic white matter ischemic changes. Ventricles and sulci are appropriate for the patient age. Paranasal sinuses and mastoid air cells within the [id number] are clear. IMPRESSIONS: 1. No acute intracranial process. Follow-up MRI can be performed as clinically indicated. 2. Chronic patchy periventricular white matter ischemic-type changes. CT cervical spine. COMPARISON: None TECHNIQUE: CT of the cervical spine is performed in the axial plane at 2 mm thick sections. Reconstr ucted images in the coronal, and sagittal plane are reviewed on the computer. FINDINGS: No acute fractures are evident. Mild kyphosis which can be related to patient positioning or muscle spasm. Mild disc space narrowing is present Vertebral body heights are preserved. No spinal canal stenosis is evident. No neural foraminal stenosis is evident. IMPRESSION: 1. No acute osseous abnormality cervical spine. [facility], , 04/23/2025 9:34 PM
[2025-04-23 23:04] LABS: Basophils # (A) 0.03 10*3/uL (0.00-0.10); Basophils % (A) 0.5 %; Eosinophils # (A) 0.07 10*3/uL (0.04-0.35); Eosinophils % (A) 1.1 %; HCT 48.3 % (39.6-50.0); HGB 17.1 g/dL (13.0-17.0); Lymphocytes # (A) 0.95 10*3/uL (0.90-5.00); Lymphocytes % (A) 15.1 %; MCH 30.7 pg (27.0-32.0); MCHC 35.4 g/dL (32.0-37.0); MCV 86.7 fL (80.0-97.0); Mean Platelet Volume 10.8 fL (9.5-12.2); Monocytes # (A) 0.29 10*3/uL (0.20-1.00); Monocytes % (A) 4.6 %; Neutrophils # (A) 4.92 10*3/uL (1.80-7.70); Neutrophils % (A) 78.4 %; Platelet Count 142 10*3/uL (140-440); RBC 5.57 10*6/uL (4.40-5.60); RDW 12.7 % (11.5-14.5); WBC 6.28 10*3/uL (4.50-10.00)
[2025-04-23] MEDS: SODIUM CHLORIDE 0.9% 1,000 ML IV ONE (23:06)
[2025-04-23 23:15] LABS: ALT 9 U/L (4-49); AST 24 U/L (17-59); African American GFR (CKD) >90 (>60 ml/min/1.73 sqM); Albumin 4.4 g/dL (3.5-5.0); Alcohol <10 mg/dL; Alkaline Phosphatase 114 U/L (38-126); Anion Gap 12 mmol/L; Blood Urea Nitrogen 8 mg/dL (9-20); Carbon Dioxide 27 mmol/L (22-30); Chloride 94 mmol/L (98-107); Glucose 111 mg/dL (74-99); Magnesium 1.5 mg/dL (1.6-2.3); Non-African American GFR(CKD) >90 (>60 ml/min/1.73 sqM); Phosphorus 3.1 mg/dL (2.5-4.5); Potassium 3.3 mmol/L (3.5-5.1); Sodium 133 mmol/L (137-145); Total Bilirubin 1.2 mg/dL (0.2-1.3); Total Protein 8.1 g/dL (6.3-8.2)
[2025-04-23 23:32] LABS: INR 1.1 (<1.2); Partial Thromboplastin Time 25.8 sec (22.0-30.0); Prothrombin Time 12.1 sec (10.0-12.5)
--- NOTE | 2025-04-24 00:02 | XR ---
EXAM: XR Chest, 2 Views CLINICAL HISTORY: Pt presents to ED for c/o redness and swelling to left leg starting today. Altered mental status TECHNIQUE: Frontal and lateral views of the chest. COMPARISON: 09/15/2022 FINDINGS: Lungs: Unremarkable. No consolidation. Pleural space: Unremarkable. Mediastinum: Unremarkable. Normal mediastinal contour. Bones/joints: No acute findings. IMPRESSION: No acute findings or substantial change.
[2025-04-24] MEDS: MAGNESIUM SULFATE-D5W PMX 1 GM in DEXTROSE/WATER 1 100ML.BAG IVPB ONE (00:56)
[2025-04-24] MEDS: POTASSIUM BICARBONATE/CIT AC 20 MEQ TABLET.EFF PO ONE ×2 (00:58→00:59)
[2025-04-24] MEDS: MAGNESIUM OXIDE 400 MG TAB PO STA ×2 (00:59)
[2025-04-24] MEDS ORDERED: MORPHINE SULFATE 4 MG/ML SYRINGE IV PRN (02:14)
[2025-04-24] MEDS ORDERED: NALOXONE 0.4 MG/ML 1 ML VIAL IV PRN (02:14)
[2025-04-24] MEDS: SODIUM CHLORIDE 0.9% 1,000 ML IV SCH (03:02)
[2025-04-24] MEDS: SODIUM CHLORIDE 0.9% 1,000 ML IV ONE (03:02)
[2025-04-24 04:10] LABS: Appearance,Urine Cloudy (Clear); Bacteria,Urine Many /hpf; Bilirubin,Urine Negative (Negative); Blood,Urine Trace (Negative); Budding Yeast,Urine Occasional /hpf; Calcium Oxalate Crystals,Urine Rare /hpf; Color,Urine Yellow; Glucose,Urine (UA) Negative (Negative); Ketones,Urine 2+ (Negative); Leukocyte Esterase,Urine Large (Negative); Mucus,Urine Occasional /hpf; Nitrite,Urine Positive (Negative); PH, Urine 7.5 (5.0-8.0); Protein,Urine Trace (Negative); RBC,Urine 4 /hpf (0-5); Specific Gravity,Urine 1.017 (1.001-1.035); Squamous Epithelial Cell,Urine 1 /hpf (0-4); WBC,Urine 59 /hpf (0-5)
[2025-04-24 04:14] LABS: Amphetamine Screen,Urine Not Detected (NotDetected); Barbiturate Screen,Urine Not Detected (NotDetected); Benzodiazepines Screen,Urine Detected (NotDetected); Cocaine Screen,Urine Not Detected (NotDetected); Methadone Screen, Urine Not Detected (NotDetected); Opiate Screen,Urine Detected (NotDetected); Oxycodone Screen, Urine Not Detected (NotDetected); Phencyclidine Screen,Urine Not Detected (NotDetected); Tricyclic Antidepressant,Urine Not Detected (NotDetected); Urn Cannabinoid Scrn Detected (NotDetected)
[2025-04-24 06:34] VITALS: BP 150/102; PULSE 107
[2025-04-24] MEDS: ONDANSETRON 4 MG/2 ML VIAL IVP PRN (07:32)
--- NOTE | 2025-04-24 23:03 | EEG ---
ELECTROENCEPHALOGRAM REPORT PREAMBLE: This is a 54-year-old male who had a fall with amnesia. EEG FINDINGS: This is a 21-channel digital EEG recorded with video component, utilizing 10/20 international system with referential and bipolar montages. Background consists of well developed, well regulated, moderate voltage activity in 8 hertz alpha. Background is posterior dominant and seems to be reactive to eye opening and closing. Photic stimulation and hyperventilation were not performed. Some frequent myogenic artifact was seen in bitemporal region. Different stages of sleep were not seen. No focal or generalized epileptiform activity was seen. IMPRESSION: This is a normal awake EEG. No focal, lateralized, or epileptiform activity was seen. Study was slightly technically limited because of presence of frequent myogenic artifact in bitemporal region during this study. MMODL / IJN: [id number] /
== END 2025-04-24 12:53 | disposition left against medical advice (07) ==
LOC: EC 20:04 → 5NMEDONC 04-24 02:14 → 6NMEDSUR 04-24 03:49
PROVIDERS: ADMIT Hospitalist; ATTEND Hospitalist
DX: I48.91 Unspecified atrial fibrillation (principal); Z53.29 Procedure and treatment not carried out because of patient's decision for other reasons; R41.82 Altered mental status, unspecified; E11.9 Type 2 diabetes mellitus without complications; E78.5 Hyperlipidemia, unspecified; I10 Essential (primary) hypertension; J45.909 Unspecified asthma, uncomplicated; F17.200 Nicotine dependence, unspecified, uncomplicated; E83.42 Hypomagnesemia; R41.2 Retrograde amnesia; Z79.899 Other long term (current) drug therapy; Z79.01 Long term (current) use of anticoagulants
CPT/HCPCS: 96361 ×2; 96365; 96375; 99285; 36415; 95816; 93005; 80053; 82140; 83735; 84100; 84484; 85025; 85610; 85730; 81001; 80306; 80320; 71046; 72125; 70450; G0378; J2405; J3475

== ENCOUNTER 2025-04-29 14:10 | Inpatient (IN) | payer BC ==
[2025-04-29 14:57] LABS: Glucose,Whole Blood 118 mg/dL (70-110)
--- NOTE | 2025-04-29 14:57 | ED ---
General Adult HPI - General Chief complaint: Altered Mental Status Stated complaint: AMS Time Seen by Provider: 04/29/25 14:22 Source: patient, family, RN notes reviewed Mode of arrival: EMS Limitations: altered mental status - History of Present Illness Initial comments: Patient is a 54-year-old male present to the emergency department with change in mental status. Symptoms have been intermittent over the past week. Patient was in the emergency department last week and left AGAINST MEDICAL ADVICE. They had difficulty trying to get to a doctor's appointment today. Patient is more confused again. Patient is not ambulatory secondary to neuropathy. Patient can only stand to transfer. Patient does have history of A-fib and does take metoprolol and Eliquis. - Related Data Home Medications Medication Instructions Recorded Confirmed Budesonide/Formoterol Fumarate 2 puff INHALATION RT-BID 04/10/20 04/24/25 [Symbicort 160-4.5 Mcg Inhaler] HYDROcodone/APAP 5-325MG [[place] 1 - 2 tab PO Q6H PRN 04/10/20 04/24/25 5-325] Pregabalin [Lyrica] 50 mg PO BID 04/10/20 04/24/25 Baclofen [Lioresal] 20 mg PO BID PRN 09/15/22 04/24/25 Omeprazole 40 mg PO DAILY 09/15/22 04/24/25 Albuterol Sulfate [Ventolin HFA] 2 puff INHALATION RT-DAILY 04/24/25 04/24/25 FLUoxetine HCL 40 mg PO DAILY 04/24/25 04/24/25 Fluticasone/Vilanterol [Breo 1 puff INHALATION RT-DAILY 04/24/25 04/24/25 Ellipta 100-25 Mcg Inhalr] Loratadine [Claritin] 10 mg PO DAILY 04/24/25 04/24/25 SUMAtriptan succinate [Imitrex] 100 mg PO BID PRN 04/24/25 04/24/25 Semaglutide [Wegovy] 1 mg SQ SA 04/24/25 04/24/25 Sildenafil [Revatio] 60 - 100 mg PO DAILY PRN 04/24/25 04/24/25 Zolpidem [Ambien] 10 mg PO HS PRN 04/24/25 04/24/25 tadalafiL 20 mg PO DAILY PRN 04/24/25 04/24/25 Previous Rx's Medication Instructions Recorded Apixaban [Eliquis] 5 mg PO BID #60 tab 04/11/20 Metoprolol Tartrate [Lopressor] 50 mg PO BID #60 tab 09/15/22 Allergies Allergy/AdvReac Type Severity Reaction Status Date / Time codeine AdvReac Paralysis Verified 04/29/25 14:28 of Legs ergotamine [From Cafergot] AdvReac Paralysis Verified 04/29/25 14:28 of Legs Review of Systems ROS Statement: Those systems with pertinent positive or pertinent negative responses have been documented in the HPI. ROS Other: All systems not noted in ROS Statement are negative. Constitutional: Denies: fever Eyes: Denies: eye pain Respiratory: Denies: cough Cardiovascular: Reports: palpitations. Denies: chest pain Gastrointestinal: Denies: abdominal pain Neurological: Reports: as per HPI, confusion. Denies: headache Past Medical History Past Medical History: Atrial Fibrillation, Asthma, Diabetes Mellitus, GERD/Reflux, Hyperlipidemia, Hypertension Additional Past Medical History / Comment(s): neuropathy, MIGRAINE HEADACHE History of Any Multi-Drug Resistant Organisms: ESBL Date of last positivie culture/infection: 08/25/20 MDRO Source:: ESBL URINE Additional Past Surgical History / Comment(s): toe amputation Past Anesthesia/Blood Transfusion Reactions: No Reported Reaction Past Psychological History: Depression Smoking Status: Current every day smoker Past Alcohol Use History: None Reported Past Drug Use History: None Reported - Past Family History Mother Family Medical History: No Reported History General Exam Limitations: altered mental status General appearance: alert, in no apparent distress Head exam: Present: atraumatic Eye exam: Present: normal appearance, PERRL, EOMI ENT exam: Present: normal oropharynx Respiratory exam: Present: normal lung sounds bilaterally Cardiovascular Exam: Present: tachycardia, irregular rhythm GI/Abdominal exam: Present: soft. Absent: tenderness Neurological exam: Present: alert, altered, CN II-XII intact. Absent: motor sensory deficit Expanded Neurological exam: Present: protecting the airway Patient oriented to: Present: person. Absent: place, time Cranial nerves: EOM's Intact: Normal Motor strength exam: RUE: 5, LUE: 5, RLE: 5, LLE: 5 Eye Response: (4) open spontaneously Motor Response: (6) obeys commands Verbal Response: (4) confused conversation Psychiatric exam: Present: normal affect, normal mood Skin exam: Present: normal color Course Vital Signs 04/29/25 04/29/25 14:12 15:39 Temperature 98.3 F Pulse Rate 79 114 H Respiratory 18 18 Rate Blood Pressure 94/74 120/87 O2 Sat by Pulse 99 96 Oximetry EKG Findings - EKG Results: EKG: interpreted by ERMD (Lateral ST depression. Inferior T wave inversion), normal axis, normal QRS EKG shows: tachycardia, atrial fibrillation Medical Decision Making - Medical Decision Making Was pt. sent in by a medical professional or institution (, PA, WATER CONSERVATIONIST, urgent care, hospital, or correction...) When possible be specific @ -No Did you speak to anyone other than the patient for history (EMS, parent, family, police, friend...)? What history was obtained from this source @ - is present and helps provide history as patient has confusion and is a poor historian Did you review nursing and triage notes (agree or disagree)? Why? @ -I reviewed and agree with nursing and triage notes Were old charts reviewed (outside hosp., previous admission, EMS record, old EKG, old radiological studies, urgent care reports/EKG's, correction records)? Report findings @ -No old charts were reviewed Differential Diagnosis (chest pain, altered mental status, abdominal pain women, abdominal pain men, vaginal bleeding, weakness, fever, dyspnea, syncope, headache, dizziness, GI bleed, back pain, seizure, CVA, palpatations, mental health, musculoskeletal)? @ -Differential Altered Mental Status: Hypoglycemia, DKA, hypercapnia, ETOH, overdose, CO poisoning, trauma, myxedema coma, HTN encephalopathy, infection, encephalitis, psychosis, intercranial hemorrhage, hepatic encephalopathy, meningitis, CVA, this is not meant to be an all-inclusive list EKG interpreted by me (3pts min.). @ -As above X-rays interpreted by me (1pt min.). @ -Chest x-ray shows no acute process CT interpreted by me (1pt min.). @ -CT brain shows degenerative changes and old infarct U/S interpreted by me (1pt. min.). @ -None done What testing was considered but not performed or refused? (CT, X-rays, U/S, labs)? Why? @ -None What meds were considered but not given or refused? Why? @ -None Did you discuss the management of the patient with other professionals (professionals i.e. DrJohn, PA, WATER CONSERVATIONIST, lab, RT, psych nurse, hospice social worker, machinist/machine builder, teacher, mortgage loan officer originator, family service caseworker)? Give summary @ -EMH to admit covering Dr. Dickey Was smoking cessation discussed for >3mins.? @ -No Was critical care preformed (if so, how long)? @ -32 minutes critical care time Were there social determinants of health that impacted care today? How? (Homelessness, low income, unemployed, alcoholism, drug addiction, transportat ion, low edu. Level, literacy, decrease access to med. care, fpc, rehab)? @ -No Was there de-escalation of care discussed even if they declined (Discuss DNR or withdrawal of care, Hospice)? DNR status @ -No What co-morbidities impacted this encounter? (DM, HTN, Smoking, COPD, CAD, Cancer, CVA, ARF, Chemo, Hep., AIDS, mental health diagnosis, sleep apnea, morbid obesity)? @ -Diabetes Was patient admitted / discharged? Hospital course, mention meds given and route, prescriptions, significant lab abnormalities, going to OR and other pertinent info. @ -Patient presents with altered mental status. Patient does have mild elevation of troponin with unclear significance at this time. Patient does have A-fib with RVR. Patient will be admitted with neuro and cardiac consult. Patient and family updated. Admission orders written. Undiagnosed new problem with uncertain prognosis? @ -No Drug Therapy requiring intensive monitoring for toxicity (Heparin, Nitro, Insulin, Cardizem)? @ -Cardizem drip Were any procedures done? @ -No Diagnosis/symptom? @ -Altered mental status Acute, or Chronic, or Acute on Chronic? @ -Acute Uncomplicated (without systemic symptoms) or Complicated (systemic symptoms)? @ -Complicated with A-fib and RVR Side effects of treatment? @ -No Exacerbation, Progression, or Severe Exacerbation? @ -No Poses a threat to life or bodily function? How? (Chest pain, [place], [place], pneumonia, PE, COPD, DKA, ARF, appy, cholecystitis, CVA, Diverticulitis, Homicidal, Suic idal, threat to staff... and all critical care pts) @ -No - Lab Data Result diagrams: 04/29/25 14:53 04/29/25 14:53 Lab Results 04/29/25 04/29/25 04/29/25 Range/Units 14:53 14:53 14:53 WBC 12.38 H (4.50-10.00) 10*3/uL RBC 5.52 (4.40-5.60) 10*6/uL Hgb 17.2 H (13.0-17.0) g/dL Hct 48.4 (39.6-50.0) % MCV 87.7 (80.0-97.0) fL MCH 31.2 (27.0-32.0) pg MCHC 35.5 (32.0-37.0) g/dL Plt Count 182 (140-440) 10*3/uL MPV 11.0 (9.5-12.2) fL Immature Gran % (Auto) 0.3 % Neutrophils % 88.1 % Lymphocytes % 5.6 % Monocytes % 5.7 % Eosinophils % 0.1 % Basophils % 0.2 % Immature Gran # 0.04 (0.00-0.04) 10*3/uL Neutrophils # 10.92 H (1.80-7.70) 10*3/uL Lymphocytes # 0.69 L (0.90-5.00) 10*3/uL Monocytes # 0.70 (0.20-1.00) 10*3/uL Eosinophils # 0.01 L (0.04-0.35) 10*3/uL Basophils # 0.02 (0.00-0.10) 10*3/uL PT 14.7 H (10.0-12.5) sec INR 1.4 H (<1.2) APTT 22.3 (22.0-30.0) sec Sodium 134 L (137-145) mmol/L Potassium 3.3 L (3.5-5.1) mmol/L Chloride 91 L (98-107) mmol/L Carbon Dioxide 25 (22-30) mmol/L Anion Gap 18 mmol/L BUN 22 H (9-20) mg/dL Creatinine 2.02 H (0.66-1.25) mg/dL Est GFR (CKD-EPI)AfAm 42 (>60 ml/min/1.73 sqM) Est GFR (CKD-EPI)NonAf 36 (>60 ml/min/1.73 sqM) Glucose 107 H (74-99) mg/dL POC Glucose (mg/dL) (70-110) mg/dL POC Glu Insurance Administrator ID Calcium 9.6 (8.4-10.2) mg/dL Total Bilirubin 2.1 H (0.2-1.3) mg/dL AST 26 (17-59) U/L ALT 15 (4-49) U/L Alkaline Phosphatase 104 (38-126) U/L Troponin I (0.000-0.034) ng/mL Total Protein 6.9 (6.3-8.2) g/dL Albumin 3.9 (3.5-5.0) g/dL Serum Alcohol <10 mg/dL 04/29/25 04/29/25 Range/Units 14:53 14:55 WBC (4.50-10.00) 10*3/uL RBC (4.40-5.60) 10*6/uL Hgb (13.0-17.0) g/dL Hct (39.6-50.0) % MCV (80.0-97.0) fL MCH (27.0-32.0) pg MCHC (32.0-37.0) g/dL Plt Count (140-440) 10*3/uL MPV (9.5-12.2) fL Immature Gran % (Auto) % Neutrophils % % Lymphocytes % % Monocytes % % Eosinophils % % Basophils % % Immature Gran # (0.00-0.04) 10*3/uL Neutrophils # (1.80-7.70) 10*3/uL Lymphocytes # (0.90-5.00) 10*3/uL Monocytes # (0.20-1.00) 10*3/uL Eosinophils # (0.04-0.35) 10*3/uL Basophils # (0.00-0.10) 10*3/uL PT (10.0-12.5) sec INR (<1.2) APTT (22.0-30.0) sec Sodium (137-145) mmol/L Potassium (3.5-5.1) mmol/L Chloride (98-107) mmol/L Carbon Dioxide (22-30) mmol/L Anion Gap mmol/L BUN (9-20) mg/dL Creatinine (0.66-1.25) mg/dL Est GFR (CKD-EPI)AfAm (>60 ml/min/1.73 sqM) Est GFR (CKD-EPI)NonAf (>60 ml/min/1.73 sqM) Glucose (74-99) mg/dL POC Glucose (mg/dL) 118 H (70-110) mg/dL POC Glu Insurance Administrator ID [place] Nena Mcdonough Calcium (8.4-10.2) mg/dL Total Bilirubin (0.2-1.3) mg/dL AST (17-59) U/L ALT (4-49) U/L Alkaline Phosphatase (38-126) U/L Troponin I 0.084 H* (0.000-0.034) ng/mL Total Protein (6.3-8.2) g/dL Albumin (3.5-5.0) g/dL Serum Alcohol mg/dL Disposition Clinical Impression: Altered mental status Disposition: ADMITTED IP TO THIS [facility] Condition: Serious Is patient prescribed a controlled substance at d/c from ED?: No Referrals: Niki Dickey DO [Primary Care Provider] - 1-2 days Time of Disposition: 16:45
[2025-04-29] MEDS: SODIUM CHLORIDE 0.9% 1,000 ML IV STA (15:01)
[2025-04-29 15:17] LABS: Basophils # (A) 0.02 10*3/uL (0.00-0.10); Basophils % (A) 0.2 %; Eosinophils # (A) 0.01 10*3/uL (0.04-0.35); Eosinophils % (A) 0.1 %; HCT 48.4 % (39.6-50.0); HGB 17.2 g/dL (13.0-17.0); Lymphocytes # (A) 0.69 10*3/uL (0.90-5.00); Lymphocytes % (A) 5.6 %; MCH 31.2 pg (27.0-32.0); MCHC 35.5 g/dL (32.0-37.0); MCV 87.7 fL (80.0-97.0); Monocytes # (A) 0.70 10*3/uL (0.20-1.00); Monocytes % (A) 5.7 %; Neutrophils # (A) 10.92 10*3/uL (1.80-7.70); Neutrophils % (A) 88.1 %; Platelet Count 182 10*3/uL (140-440); RBC 5.52 10*6/uL (4.40-5.60); RDW 12.9 % (11.5-14.5); WBC 12.38 10*3/uL (4.50-10.00)
[2025-04-29 15:28] LABS: ALT 15 U/L (4-49); AST 26 U/L (17-59); African American GFR (CKD) 42 (>60 ml/min/1.73 sqM); Albumin 3.9 g/dL (3.5-5.0); Alkaline Phosphatase 104 U/L (38-126); Anion Gap 18 mmol/L; Blood Urea Nitrogen 22 mg/dL (9-20); Calcium 9.6 mg/dL (8.4-10.2); Carbon Dioxide 25 mmol/L (22-30); Chloride 91 mmol/L (98-107); Glucose 107 mg/dL (74-99); Non-African American GFR(CKD) 36 (>60 ml/min/1.73 sqM); Potassium 3.3 mmol/L (3.5-5.1); Sodium 134 mmol/L (137-145); Total Protein 6.9 g/dL (6.3-8.2)
--- NOTE | 2025-04-29 15:29 | XR ---
EXAMINATION TYPE: XR chest 2V DATE OF EXAM: 04/29/2025 3:18 PM COMPARISON: 04/23/2025 CLINICAL INDICATION: Male, 54 years old with history of altered mental status: Shortness of breath TECHNIQUE: XR chest 2V views of the chest are obtained. FINDINGS: Scattered senescent parenchymal changes noted. Hyperinflation compatible with COPD. No evidence for infiltrate. No evidence for atelectasis. Heart size is stable. Mediastinal structures are stable and grossly unremarkable. No evidence for hilar prominence. Degenerative changes dorsal spine. IMPRESSION: 1. No evidence for acute pulmonary disease. [facility], , 04/29/2025 3:26 PM
[2025-04-29] MEDS: DILTIAZEM 125 MG in DEXTROSE 5% IN WATER 100 ML IV SCH (15:39)
[2025-04-29 15:44] LABS: INR 1.4 (<1.2); Prothrombin Time 14.7 sec (10.0-12.5)
[2025-04-29 15:51] LABS: Partial Thromboplastin Time 22.3 sec (22.0-30.0)
--- NOTE | 2025-04-29 15:59 | CT ---
EXAMINATION TYPE: CT brain wo con DATE OF EXAM: 04/29/2025 COMPARISON: CT brain and C-spine dated 04/23/2025 CLINICAL INDICATION: Male, 54 years old with history of Altered mental status; PHH, AMS. CT DLP: 1141.4 mGycm Automated exposure control for dose reduction was used. Findings: The ventricles, basal cisterns and sulci over the convexities are moderately enlarged consistent with moderate generalized atrophy. There is moderate to marked decreased density in the periventricular white matter consistent with chr onic ischemic white matter demyelination. There are remote lacunar infarcts in the region of the left basal ganglia and left thalamus. There is no acute intra or extra-axial hemorrhage. The posterior fossa including the brainstem, fourth ventricle and cerebellar pontine angles appear n ormal. Intraorbital contents appear normal and symmetric. Visualized paranasal sinuses and mastoid air cells are well aerated. The calvarium is intact. IMPRESSION: 1. No acute bleed or mass effect. 2. Moderate generalized atrophy and chronic ischemic white matter changes. 3. Probable remote lacunar infarction left basal area and left thalamus. [facility], , 04/29/2025 3:56 PM
[2025-04-29] MEDS ORDERED: NALOXONE 0.4 MG/ML 1 ML VIAL IV PRN (16:45)
[2025-04-29 17:13] LABS: Bacteria,Urine Many /hpf; Bilirubin,Urine Negative (Negative); Blood,Urine Moderate (Negative); Color,Urine Yellow; Glucose,Urine (UA) Negative (Negative); Hyaline Casts,Urine 3 /lpf (0-2); Ketones,Urine Trace (Negative); Leukocyte Esterase,Urine Large (Negative); Mucus,Urine Few /hpf; Nitrite,Urine Negative (Negative); PH, Urine 5.5 (5.0-8.0); Protein,Urine 1+ (Negative); RBC,Urine 17 /hpf (0-5); Specific Gravity,Urine 1.013 (1.001-1.035); Squamous Epithelial Cell,Urine 4 /hpf (0-4); Urobilinogen,Urine 2.0 mg/dL (<2.0); WBC,Urine 93 /hpf (0-5)
[2025-04-29 17:18] LABS: Barbiturate Screen,Urine Not Detected (NotDetected); Benzodiazepines Screen,Urine Detected (NotDetected); Opiate Screen,Urine Detected (NotDetected); Oxycodone Screen, Urine Not Detected (NotDetected); Phencyclidine Screen,Urine Not Detected (NotDetected); Tricyclic Antidepressant,Urine Not Detected (NotDetected); Urn Cannabinoid Scrn Detected (NotDetected)
[2025-04-29] MEDS ORDERED: BACLOFEN 10 MG TAB PO PRN (19:48)
[2025-04-29] MEDS: METOPROLOL TARTRATE 50 MG TAB PO SCH (20:17)
[2025-04-29] MEDS: PREGABALIN 50 MG CAP PO SCH (20:17)
[2025-04-29] MEDS: APIXABAN 5 MG TAB PO SCH (20:17)
[2025-04-29] MEDS: SYMBICORT 160-4.5 MCG INHALER INHALATION SCH (21:52)
[2025-04-30 07:05] LABS: Basophils # (A) 0.04 10*3/uL (0.00-0.10); Basophils % (A) 0.4 %; Eosinophils # (A) 0.07 10*3/uL (0.04-0.35); Eosinophils % (A) 0.8 %; HCT 47.4 % (39.6-50.0); HGB 16.5 g/dL (13.0-17.0); Lymphocytes # (A) 1.39 10*3/uL (0.90-5.00); Lymphocytes % (A) 14.9 %; MCH 30.7 pg (27.0-32.0); MCHC 34.8 g/dL (32.0-37.0); MCV 88.1 fL (80.0-97.0); Monocytes # (A) 0.67 10*3/uL (0.20-1.00); Monocytes % (A) 7.2 %; Neutrophils # (A) 7.10 10*3/uL (1.80-7.70); Neutrophils % (A) 76.4 %; Platelet Count 156 10*3/uL (140-440); RBC 5.38 10*6/uL (4.40-5.60); RDW 13.2 % (11.5-14.5); WBC 9.30 10*3/uL (4.50-10.00)
[2025-04-30 07:55] LABS: ALT 16 U/L (4-49); AST 32 U/L (17-59); African American GFR (CKD) 53 (>60 ml/min/1.73 sqM); Albumin 4.2 g/dL (3.5-5.0); Alkaline Phosphatase 103 U/L (38-126); Anion Gap 12 mmol/L; Blood Urea Nitrogen 27 mg/dL (9-20); Calcium 9.2 mg/dL (8.4-10.2); Carbon Dioxide 29 mmol/L (22-30); Chloride 93 mmol/L (98-107); Glucose 97 mg/dL (74-99); Non-African American GFR(CKD) 46 (>60 ml/min/1.73 sqM); Potassium 2.9 mmol/L (3.5-5.1); Sodium 134 mmol/L (137-145); Total Protein 7.1 g/dL (6.3-8.2)
[2025-04-30] MEDS ORDERED: PANTOPRAZOLE 40 MG/10 ML VIAL IV SCH (09:00)
[2025-04-30] MEDS: ALBUTEROL NEBULIZED 2.5 MG/3 ML INHALATION SCH (09:37)
[2025-04-30] MEDS: SYMBICORT 160-4.5 MCG INHALER INHALATION SCH (09:38)
--- NOTE | 2025-04-30 10:23 | US ---
EXAMINATION TYPE: US kidneys/renal and bladder DATE OF EXAM: 04/30/2025 COMPARISON: NONE CLINICAL INDICATION: Male, 54 years old with history of Tito; Patient very confused and here for AMS, noncooperative TECHNIQUE: Grayscale imaging of the bilateral kidneys and urinary bladder: FINDINGS: EXAM MEASUREMENTS: Right Kidney: 9.7 x 5.1 x 6.2cm Left Kidney: 9.6 x 5.0 x 5.7cm Right Kidney: No hydronephrosis or masses seen Left Kidney: No hydronephrosis or masses seen Bladder: not imaged, patient not cooperating There is no evidence for hydronephrosis at this point in time. No nephrolithiasis is seen. No reba s are identified. The urinary bladder is anechoic. IMPRESSION: Unremarkable study [facility], , 04/30/2025 10:21 AM
[2025-04-30] MEDS: METOPROLOL TARTRATE 25 MG TAB PO SCH (10:25)
[2025-04-30] MEDS: LORATADINE 10 MG TAB PO SCH (10:26)
[2025-04-30] MEDS: PANTOPRAZOLE 40 MG TABLET PO SCH (10:26)
--- NOTE | 2025-04-30 12:30 | P.CRDCN ---
History of Present Illness Consult date: 04/30/25 Reason for Consult (text): A-fib RVR History of present illness: This is a 54-year-old male patient previously seen by Dr. Mora with last off ice visit on 08/31/2020. He has a past medical history of permanent atrial fibrillation, hyperlipidemia, hypertension, diabetes mellitus type 2, tobacco use, obstructive sleep apnea and abnormal nuclear stress test. At the time of that office visit, it was recommended for cardiac catheterization which he underwent in August 2020 but had no further follow-up in the office. We have been asked to evaluate the patient for A-fib with RVR. Patient presented to the hospital due to mental status changes that have been intermittent for the past week. Patient was hospitalized on 04/23 for the same and signed out AMA. Patient denies chest pain or chest pressure. No shortness of breath. No light headedness or dizziness. Patient was found to be in atrial fibrillation with RVR was started on Cardizem drip. Patient is currently rate controlled. Blood pressure 130/94. Patient is seen today in the emergency center waiting for a bed on the cardiac stepdown unit. -EKG: Atrial fibrillation 89 bpm -Chest x-ray: No acute process. -CT brain: No acute bleed or mass effect. Moderate generalized atrophy and chronic ischemic white matter changes. -Laboratory studies: Troponin 0.084, 0.586, 1.01. WBC initially 12.3 now 9.4, hemoglobin 16.5, sodium 134, potassium 2.9, BUN 27 creatinine initially 2.02 now 1.67. Urinalysis positive for infection. Drug screen positive for opiates, benzodiazepines, marijuana. Serum alcohol less than 10. -Home cardiac medications: Eliquis 5 mg twice daily, Lopressor 50 mg twice daily. -Cardiac catheterization 09/09/2020 revealed mild CAD in the distal main, LAD and RCA Review Of Systems: At the time of my exam: CONSTITUTIONAL: Denies fever or chills. HEENT: Denies blurred vision, vision changes, or eye pain. Denies hemoptysis CARDIOVASCULAR: Denies chest pain. Denies orthopnea. Denies PND. Denies palpitations RESPIRATORY: Denies shortness of breath. GASTROINTESTINAL: Denies abdominal pain. Denies nausea or vomiting. HEMATOLOGIC: Denies bleeding disorders. GENITOURINARY: Denies any blood in urine. SKIN: Denies puritis. Denies rash. Physical examination: Gen: This is a 54-year-old male in no acute distress. VS: reviewed HEENT: Head is atraumatic, normocephalic. Pupils equal, round. Sclerae is anicteric. NECK: Supple. No JVD. LUNGS: Clear to auscultation. No wheezes or rhonchi. No intercostal retractions. HEART: Regular rate and rhythm. No murmur. ABDOMEN: Soft No tenderness. EXTREMITIES: No pedal edema. No calf tenderness. NEUROLOGICAL: Patient is awake, alert. Assessment: Permanent atrial fibrillation with RVR, currently rate controlled Acute kidney injury Metabolic encephalopathy Hypokalemia Hyperlipidemia Hypertension Diabetes mellitus type 2 Tobacco use Obstructive sleep apnea Known abnormal nuclear stress test Plan: Resume patient's home cardiac medications with the following changes: Increase Lopressor to 75 mg twice daily Obtain 2-D echocardiogram and Doppler study to assess cardiac structure and function Further recommendations to follow based upon clinical course Thank you kindly for this consultation. Nurse practitioner note has been reviewed, I agree with documented findings and plan of care. Patient was seen and examined. Past Medical History Past Medical History: Atrial Fibrillation, Asthma, Diabetes Mellitus, GERD/Reflux, Hyperlipidemia, Hypertension Additional Past Medical History / Comment(s): neuropathy, MIGRAINE HEADACHE History of Any Multi-Drug Resistant Organisms: ESBL Date of last positivie culture/infection: 08/25/20 MDRO Source:: ESBL URINE Additional Past Surgical History / Comment(s): toe amputation Past Anesthesia/Blood Transfusion Reactions: No Reported Reaction Past Psychological History: Depression Smoking Status: Current every day smoker Past Alcohol Use History: None Reported Past Drug Use History: None Reported - Past Family History Mother Family Medical History: No Reported History Medications and Allergies Home Medications Medication Instructions Recorded Confirmed Type Budesonide/Formoterol Fumarate 2 puff INHALATION RT-BID 04/10/20 04/29/25 History [Symbicort 160-4.5 Mcg Inhaler] HYDROcodone/APAP 5-325MG [[place] 1 - 2 tab PO Q6H PRN 04/10/20 04/29/25 History 5-325] Pregabalin [Lyrica] 50 mg PO BID 04/10/20 04/29/25 History Apixaban [Eliquis] 5 mg PO BID #60 tab 04/11/20 04/29/25 Rx Baclofen [Lioresal] 20 mg PO BID PRN 09/15/22 04/29/25 History Metoprolol Tartrate [Lopressor] 50 mg PO BID #60 tab 09/15/22 04/29/25 Rx Omeprazole 40 mg PO DAILY 09/15/22 04/29/25 History Albuterol Sulfate [Ventolin HFA] 2 puff INHALATION RT-DAILY 04/24/25 04/29/25 History FLUoxetine HCL 40 mg PO DAILY 04/24/25 04/29/25 History Fluticasone/Vilanterol [Breo 1 puff INHALATION RT-DAILY 04/24/25 04/29/25 History Ellipta 100-25 Mcg Inhalr] Loratadine [Claritin] 10 mg PO DAILY 04/24/25 04/29/25 History SUMAtriptan succinate [Imitrex] 100 mg PO BID PRN 04/24/25 04/29/25 History Semaglutide [Wegovy] 1 mg SQ SA 04/24/25 04/29/25 History Sildenafil [Revatio] 60 - 100 mg PO DAILY PRN 04/24/25 04/29/25 History Zolpidem [Ambien] 10 mg PO HS PRN 04/24/25 04/29/25 History tadalafiL 20 mg PO DAILY PRN 04/24/25 04/29/25 History Allergies Allergy/AdvReac Type Severity Reaction Status Date / Time codeine AdvReac Paralysis Verified 04/29/25 14:28 of Legs ergotamine [From Cafergot] AdvReac Paralysis Verified 04/29/25 14:28 of Legs Physical Exam Vitals: Vital Signs Temp Pulse Resp BP Pulse Ox 04/30/25 06:00 71 18 137/81 94 L 04/30/25 04:00 71 18 123/90 97 04/30/25 01:40 78 20 129/96 96 04/29/25 23:17 78 18 126/95 98 04/29/25 20:17 85 18 149/73 99 04/29/25 18:52 80 18 101/79 96 04/29/25 15:39 114 H 18 120/87 96 04/29/25 14:12 98.3 F 79 18 94/74 99 Results 04/30/25 06:53 04/30/25 06:53 Cardiac Enzymes 04/29/25 04/29/25 04/29/25 Range/Units 14:53 14:53 18:30 AST 26 (17-59) U/L Troponin I 0.084 H* 0.586 H* (0.000-0.034) ng/mL 04/29/25 Range/Units 23:03 AST (17-59) U/L Troponin I 1.010 H* (0.000-0.034) ng/mL Coagulation 04/29/25 Range/Units 14:53 PT 14.7 H (10.0-12.5) sec APTT 22.3 (22.0-30.0) sec CBC 04/29/25 04/30/25 Range/Units 14:53 06:53 WBC 12.38 H 9.30 (4.50-10.00) 10*3/uL RBC 5.52 5.38 (4.40-5.60) 10*6/uL Hgb 17.2 H 16.5 (13.0-17.0) g/dL Hct 48.4 47.4 (39.6-50.0) % Plt Count 182 156 (140-440) 10*3/uL Comprehensive Metabolic Panel 04/29/25 Range/Units 14:53 Sodium 134 L (137-145) mmol/L Potassium 3.3 L (3.5-5.1) mmol/L Chloride 91 L (98-107) mmol/L Carbon Dioxide 25 (22-30) mmol/L BUN 22 H (9-20) mg/dL Creatinine 2.02 H (0.66-1.25) mg/dL Glucose 107 H (74-99) mg/dL Calcium 9.6 (8.4-10.2) mg/dL AST 26 (17-59) U/L ALT 15 (4-49) U/L Alkaline Phosphatase 104 (38-126) U/L Total Protein 6.9 (6.3-8.2) g/dL Albumin 3.9 (3.5-5.0) g/dL Current Medications Generic Name Dose Route Start Last Admin Trade Name Freq PRN Reason Stop Dose Admin Albuterol Sulfate 2.5 mg 04/30/25 08:00 Albuterol Nebulized 2.5 Mg/3 Ml INHALATION RT-DAILY LENI Apixaban 5 mg 04/29/25 21:00 04/29/25 20:17 Apixaban 5 Mg Tab PO 5 mg BID LENI Administration Protocol Baclofen 20 mg 04/29/25 19:48 Baclofen 10 Mg Tab PO BID PRN Muscle Spasm Budesonide/Formoterol Fumarate 2 puff 04/30/25 08:00 Symbicort 160-4.5 Mcg Inhaler INHALATION RT-BID LENI Fluoxetine HCl 40 mg 04/30/25 09:00 Fluoxetine Hcl 20 Mg Cap PO DAILY LENI Diltiazem HCl 125 mg/ Dextrose 125 mls @ 5 mls/hr 04/29/25 15:00 04/29/25 15:39 /Water IV 5 mg/hr .Q24H LENI 5 mls/hr Administration Protocol 5 MG/HR Loratadine 10 mg 04/30/25 09:00 Loratadine 10 Mg Tab PO DAILY LENI Metoprolol Tartrate 50 mg 04/29/25 21:00 04/29/25 20:17 Metoprolol Tartrate 50 Mg Tab PO 50 mg BID LENI Administration Naloxone HCl 0.2 mg 04/29/25 16:45 Naloxone 0.4 Mg/Ml 1 Ml Vial IV Q2M PRN Opioid Reversal Pantoprazole Sodium 40 mg 04/30/25 09:00 Pantoprazole 40 Mg Tablet PO DAILY LENI Pregabalin 50 mg 04/29/25 21:00 04/29/25 20:17 Pregabalin 50 Mg Cap PO 50 mg BID LENI Administration Zolpidem Tartrate 10 mg 04/29/25 19:48 Zolpidem 5 Mg Tab PO HS PRN Insomnia 04/30/25 06:53 04/29/25 14:53
--- NOTE | 2025-04-30 13:17 | P.HPIM ---
History of Present Illness H&P Date: 04/30/25 History of present illness; patient 54-year-old gentleman with past medical history significant for A-fib, COPD who presented the ER for confusion. Patient was apparently in the ER a week ago with similar symptoms at which time patient had a fall and came in for confusion. Patient had a CT scan of the head at times was negative for acute intracranial process, patient was advised to stay in the hospital for neurology evaluation but patient left AGAINST MEDICAL ADVICE. Patient apparently was doing well till yesterday when noted the patient was very weak and confused, patient hard time getting out of the chair and was not able to make any sense of what he was saying. There was no obvious facial droop. There was no seizure-like activity. There was no weakness of any extremity. Because of this increasing confusion and weakness patient was brought to the ER Initial lab work done in the ER showed WBC 12.38, hemoglobin 17.2, platelet count 192, sodium 134, potassium 3.3, BUN 22, creatinine 2.02 glucose 107 troponin 0.084 UA positive for large amount of leukocyte Estrace, urine WBC 93, Urine toxicology positive for opioids, benzos, marijuana EKG done in the ER showed heart rate of116, irregular rate and rhythm, no ST segment elevation or depression seen, no T-wave inversions seen. Chest x-ray done in the ER no evidence for acute pulmonary process CT head done showed no acute intracranial process Patient admitted to internal medicine service REVIEW OF SYSTEMS: CONSTITUTIONAL: No fever, no malaise, no fatigue. HEENT: No recent visual problems or hearing problems. Denied any sore throat. CARDIOVASCULAR: No chest pain, orthopnea, PND, no palpitations, no syncope. PULMONARY: No shortness of breath, no cough, no hemoptysis. GASTROINTESTINAL: No diarrhea, no nausea, no vomiting, no abdominal pain. NEUROLOGICAL: As mentioned above HEMATOLOGICAL: Denies any bleeding or petechiae. GENITOURINARY: Denies any burning micturition, frequency, or urgency. MUSCULOSKELETAL/RHEUMATOLOGICAL: Denies any joint pain, swelling, or any muscle pain. ENDOCRINE: Denies any polyuria or polydipsia. The rest of the 14-point review of systems is negative. PHYSICAL EXAMINATION: GENERAL: The patient is alert self and place, mental status waxes and wanes, ill looking HEENT: Pupils are round and equally reacting to light. EOMI. No scleral icterus. No conjunctival pallor. Normocephalic, atraumatic. No pharyngeal erythema. No thyromegaly. CARDIOVASCULAR: S1 and S2 present. No murmurs, rubs, or gallops. PULMONARY: Chest is clear to auscultation, no wheezing or crackles. ABDOMEN: Soft, nontender, nondistended, normoactive bowel sounds. No palpable organomegaly. MUSCULOSKELETAL: No joint swelling or deformity. EXTREMITIES: No cyanosis, clubbing, or pedal edema. NEUROLOGICAL: Gross neurological examination did not reveal any focal deficits. SKIN: No rashes. Assessment and plan Acute metabolic encephalopathy UTI A-fib with RVR ADELFO Hyponatremia Hypokalemia Elevated troponin History of chronic atrial fibrillation History of COPD Monitor vital signs Monitor CBC Monitor CMP Continue telemetry monitoring Fall precaution Ordered neurochecks Ordered urine lites Ordered urine cultures Start IV Rocephin Order ultrasound kidneys Continue IV fluids Resume Eliquis, continue Lopressor Consult cardiology Consult neurology PT OT consulted Labs and medication were reviewed.. Continue same treatment. Continue with symptomatic treatment. Resume home medication. Monitor labs and vitals. DVT and GI prophylaxis. Further recommendations as per clinical course of the patient Dictation was produced using [employer] dictation software. please excuse any grammatical, word or spelling errors. Past Medical History Past Medical History: Atrial Fibrillation, Asthma, Diabetes Mellitus, GERD/Reflux, Hyperlipidemia, Hypertension Additional Past Medical History / Comment(s): neuropathy, MIGRAINE HEADACHE History of Any Multi-Drug Resistant Organisms: ESBL Date of last positivie culture/infection: 08/25/20 MDRO Source:: ESBL URINE Additional Past Surgical History / Comment(s): toe amputation Past Anesthesia/Blood Transfusion Reactions: No Reported Reaction Past Psychological History: Depression Smoking Status: Current every day smoker Past Alcohol Use History: None Reported Past Drug Use History: None Reported - Past Family History Mother Family Medical History: No Reported History Medications and Allergies Home Medications Medication Instructions Recorded Confirmed Type Budesonide/Formoterol Fumarate 2 puff INHALATION RT-BID 04/10/20 04/29/25 History [Symbicort 160-4.5 Mcg Inhaler] HYDROcodone/APAP 5-325MG [[place] 1 - 2 tab PO Q6H PRN 04/10/20 04/29/25 History 5-325] Pregabalin [Lyrica] 50 mg PO BID 04/10/20 04/29/25 History Apixaban [Eliquis] 5 mg PO BID #60 tab 04/11/20 04/29/25 Rx Baclofen [Lioresal] 20 mg PO BID PRN 09/15/22 04/29/25 History Metoprolol Tartrate [Lopressor] 50 mg PO BID #60 tab 09/15/22 04/29/25 Rx Omeprazole 40 mg PO DAILY 09/15/22 04/29/25 History Albuterol Sulfate [Ventolin HFA] 2 puff INHALATION RT-DAILY 04/24/25 04/29/25 History FLUoxetine HCL 40 mg PO DAILY 04/24/25 04/29/25 History Fluticasone/Vilanterol [Breo 1 puff INHALATION RT-DAILY 04/24/25 04/29/25 History Ellipta 100-25 Mcg Inhalr] Loratadine [Claritin] 10 mg PO DAILY 04/24/25 04/29/25 History SUMAtriptan succinate [Imitrex] 100 mg PO BID PRN 04/24/25 04/29/25 History Semaglutide [Wegovy] 1 mg SQ SA 04/24/25 04/29/25 History Sildenafil [Revatio] 60 - 100 mg PO DAILY PRN 04/24/25 04/29/25 History Zolpidem [Ambien] 10 mg PO HS PRN 04/24/25 04/29/25 History tadalafiL 20 mg PO DAILY PRN 04/24/25 04/29/25 History Allergies Allergy/AdvReac Type Severity Reaction Status Date / Time codeine AdvReac Paralysis Verified 04/29/25 14:28 of Legs ergotamine [From Cafergot] AdvReac Paralysis Verified 04/29/25 14:28 of Legs Physical Exam Vitals: Vital Signs Temp Pulse Resp BP Pulse Ox 04/30/25 09:46 76 04/30/25 09:41 78 100 04/30/25 08:00 97.8 F 77 20 130/94 95 04/30/25 06:00 71 18 137/81 94 L 04/30/25 04:00 71 18 123/90 97 04/30/25 01:40 78 20 129/96 96 04/29/25 23:17 78 18 126/95 98 04/29/25 20:17 85 18 149/73 99 04/29/25 18:52 80 18 101/79 96 04/29/25 15:39 114 H 18 120/87 96 04/29/25 14:12 98.3 F 79 18 94/74 99 Results CBC & Chem 7: 04/30/25 06:53 04/30/25 06:53 Labs: Abnormal Lab Results - Last 24 Hours (Table) 04/29/25 04/29/25 04/29/25 Range/Units 14:53 14:53 14:53 WBC 12.38 H (4.50-10.00) 10*3/uL Hgb 17.2 H (13.0-17.0) g/dL Neutrophils # 10.92 H (1.80-7.70) 10*3/uL Lymphocytes # 0.69 L (0.90-5.00) 10*3/uL Eosinophils # 0.01 L (0.04-0.35) 10*3/uL PT 14.7 H (10.0-12.5) sec INR 1.4 H (<1.2) Sodium 134 L (137-145) mmol/L Potassium 3.3 L (3.5-5.1) mmol/L Chloride 91 L (98-107) mmol/L BUN 22 H (9-20) mg/dL Creatinine 2.02 H (0.66-1.25) mg/dL Glucose 107 H (74-99) mg/dL POC Glucose (mg/dL) (70-110) mg/dL Total Bilirubin 2.1 H (0.2-1.3) mg/dL Troponin I (0.000-0.034) ng/mL Urine Protein (Negative) Urine Ketones (Negative) Urine Blood (Negative) Ur Leukocyte Esterase (Negative) Urine RBC (0-5) /hpf Urine WBC (0-5) /hpf Urine WBC Clumps (None) /hpf Urine Bacteria (None) /hpf Hyaline Casts (0-2) /lpf Urine Mucus (None) /hpf Urine Opiates Screen (NotDetected) U Benzodiazepines Scrn (NotDetected) U Marijuana (THC) Screen (NotDetected) 04/29/25 04/29/25 04/29/25 Range/Units 14:53 14:55 16:52 WBC (4.50-10.00) 10*3/uL Hgb (13.0-17.0) g/dL Neutrophils # (1.80-7.70) 10*3/uL Lymphocytes # (0.90-5.00) 10*3/uL Eosinophils # (0.04-0.35) 10*3/uL PT (10.0-12.5) sec INR (<1.2) Sodium (137-145) mmol/L Potassium (3.5-5.1) mmol/L Chloride (98-107) mmol/L BUN (9-20) mg/dL Creatinine (0.66-1.25) mg/dL Glucose (74-99) mg/dL POC Glucose (mg/dL) 118 H (70-110) mg/dL Total Bilirubin (0.2-1.3) mg/dL Troponin I 0.084 H* (0.000-0.034) ng/mL Urine Protein 1+ H (Negative) Urine Ketones Trace H (Negative) Urine Blood Moderate H (Negative) Ur Leukocyte Esterase Large H (Negative) Urine RBC 17 H (0-5) /hpf Urine WBC 93 H (0-5) /hpf Urine WBC Clumps Few H (None) /hpf Urine Bacteria Many H (None) /hpf Hyaline Casts 3 H (0-2) /lpf Urine Mucus Few H (None) /hpf Urine Opiates Screen Detected H (NotDetected) U Benzodiazepines Scrn Detected H (NotDetected) U Marijuana (THC) Screen Detected H (NotDetected) 04/29/25 04/29/25 04/30/25 Range/Units 18:30 23:03 06:53 WBC (4.50-10.00) 10*3/uL Hgb (13.0-17.0) g/dL Neutrophils # (1.80-7.70) 10*3/uL Lymphocytes # (0.90-5.00) 10*3/uL Eosinophils # (0.04-0.35) 10*3/uL PT (10.0-12.5) sec INR (<1.2) Sodium 134 L (137-145) mmol/L Potassium 2.9 L (3.5-5.1) mmol/L Chloride 93 L (98-107) mmol/L BUN 27 H (9-20) mg/dL Creatinine 1.67 H (0.66-1.25) mg/dL Glucose (74-99) mg/dL POC Glucose (mg/dL) (70-110) mg/dL Total Bilirubin 1.6 H (0.2-1.3) mg/dL Troponin I 0.586 H* 1.010 H* (0.000-0.034) ng/mL Urine Protein (Negative) Urine Ketones (Negative) Urine Blood (Negative) Ur Leukocyte Esterase (Negative) Urine RBC (0-5) /hpf Urine WBC (0-5) /hpf Urine WBC Clumps (None) /hpf Urine Bacteria (None) /hpf Hyaline Casts (0-2) /lpf Urine Mucus (None) /hpf Urine Opiates Screen (NotDetected) U Benzodiazepines Scrn (NotDetected) U Marijuana (THC) Screen (NotDetected)
--- NOTE | 2025-04-30 15:17 | P.CNNES ---
<LloydAyaanmahin - Last Filed: 04/30/25 14:58> History of Present Illness Consult date: 04/30/25 Requesting physician: Eze Stringer Reason for Consult: ams History of Present Illness: Patient is a 54-year-old male with atrial fibrillation, diabetes mellitus, hyperlipidemia, hypertension who presented to the ED due to altered mental status. Patient seen today under neurological consultation. Patient symptoms have been intermittent over the past week. Patient was seen in the ED at our facility a week ago and then he left AGAINST MEDICAL ADVICE. At the time patient had a fall and he came in for confusion. Patient had a CT scan of the head at times was negative for acute intracranial process. patient hard time getting out of the chair and was not able to make any sense of what he was saying. Patient was unable to hold conversation but he did report having UTI symptoms. Vital signs are within normal limits. WBC improved from 12.38 to 9.30, sodium 134, potassium 2.9, creatinine 1.67, troponin I 0.084, 0.586, 1.010 UA shows moderate blood, large leukocyte esterase, many bacteria Urine toxicology positive for opiates, benzodiazepines, marijuana Brain CT shows no acute bleed or mass effect, moderate generalized atrophy and chronic ischemic white matter changes, probable remote lacunar infarction left basal area and left thalamus Past Medical History Past Medical History: Atrial Fibrillation, Asthma, Diabetes Mellitus, GERD/Reflux, Hyperlipidemia, Hypertension Additional Past Medical History / Comment(s): neuropathy, MIGRAINE HEADACHE History of Any Multi-Drug Resistant Organisms: ESBL Date of last positivie culture/infection: 08/25/20 MDRO Source:: ESBL URINE Additional Past Surgical History / Comment(s): toe amputation Past Anesthesia/Blood Transfusion Reactions: No Reported Reaction Past Psychological History: Depression Smoking Status: Current every day smoker Past Alcohol Use History: None Reported Past Drug Use History: None Reported - Past Family History Mother Family Medical History: No Reported History Medications and Allergies Home Medications Medication Instructions Recorded Confirmed Type Budesonide/Formoterol Fumarate 2 puff INHALATION RT-BID 04/10/20 04/29/25 History [Symbicort 160-4.5 Mcg Inhaler] HYDROcodone/APAP 5-325MG [[place] 1 - 2 tab PO Q6H PRN 04/10/20 04/29/25 History 5-325] Pregabalin [Lyrica] 50 mg PO BID 04/10/20 04/29/25 History Apixaban [Eliquis] 5 mg PO BID #60 tab 04/11/20 04/29/25 Rx Baclofen [Lioresal] 20 mg PO BID PRN 09/15/22 04/29/25 History Metoprolol Tartrate [Lopressor] 50 mg PO BID #60 tab 09/15/22 04/29/25 Rx Omeprazole 40 mg PO DAILY 09/15/22 04/29/25 History Albuterol Sulfate [Ventolin HFA] 2 puff INHALATION RT-DAILY 04/24/25 04/29/25 History FLUoxetine HCL 40 mg PO DAILY 04/24/25 04/29/25 History Fluticasone/Vilanterol [Breo 1 puff INHALATION RT-DAILY 04/24/25 04/29/25 History Ellipta 100-25 Mcg Inhalr] Loratadine [Claritin] 10 mg PO DAILY 04/24/25 04/29/25 History SUMAtriptan succinate [Imitrex] 100 mg PO BID PRN 04/24/25 04/29/25 History Semaglutide [Wegovy] 1 mg SQ SA 04/24/25 04/29/25 History Sildenafil [Revatio] 60 - 100 mg PO DAILY PRN 04/24/25 04/29/25 History Zolpidem [Ambien] 10 mg PO HS PRN 04/24/25 04/29/25 History tadalafiL 20 mg PO DAILY PRN 04/24/25 04/29/25 History Allergies Allergy/AdvReac Type Severity Reaction Status Date / Time codeine AdvReac Paralysis Verified 04/29/25 14:28 of Legs ergotamine [From Cafergot] AdvReac Paralysis Verified 04/29/25 14:28 of Legs Physical Examination - Vital Signs Vital Signs: Vital Signs Temp Pulse Resp BP Pulse Ox 04/30/25 14:09 95 18 148/87 100 04/30/25 10:15 76 20 97 04/30/25 09:46 76 04/30/25 09:41 78 100 04/30/25 08:00 97.8 F 77 20 130/94 95 04/30/25 06:00 71 18 137/81 94 L 04/30/25 04:00 71 18 123/90 97 04/30/25 01:40 78 20 129/96 96 04/29/25 23:17 78 18 126/95 98 04/29/25 20:17 85 18 149/73 99 04/29/25 18:52 80 18 101/79 96 04/29/25 15:39 114 H 18 120/87 96 General: no distress, lying in bed. Neuro: alert and oriented to person only Extraocular movements intact no nystagmus no facial weakness. Face is symmetric No facial weakness. Has mild dysarthria. Motor: The strength is 4 out of 5 in all 4 extremities Deep tendon reflexes are symmetric 1 at the biceps, brachioradialis, knees and plantars indeterminate Sensory to touch is equal Cerebellar function showed no ataxia for [id number] testing and [id number]-[id number] testing, no dysdiachokinesia Results - Laboratory Findings CBC and BMP: 04/30/25 06:53 04/30/25 06:53 Abnormal Lab Findings: Abnormal Labs 04/29/25 04/29/25 04/29/25 14:53 14:53 14:53 WBC 12.38 H Hgb 17.2 H Neutrophils # 10.92 H Lymphocytes # 0.69 L Eosinophils # 0.01 L PT 14.7 H INR 1.4 H Sodium 134 L Potassium 3.3 L Chloride 91 L BUN 22 H Creatinine 2.02 H Glucose 107 H POC Glucose (mg/dL) Total Bilirubin 2.1 H Troponin I Urine Protein Urine Ketones Urine Blood Ur Leukocyte Esterase Urine RBC Urine WBC Urine WBC Clumps Urine Bacteria Hyaline Casts Urine Mucus Urine Opiates Screen U Benzodiazepines Scrn U Marijuana (THC) Screen 04/29/25 04/29/25 04/29/25 14:53 14:55 16:52 WBC Hgb Neutrophils # Lymphocytes # Eosinophils # PT INR Sodium Potassium Chloride BUN Creatinine Glucose POC Glucose (mg/dL) 118 H Total Bilirubin Troponin I 0.084 H* Urine Protein 1+ H Urine Ketones Trace H Urine Blood Moderate H Ur Leukocyte Esterase Large H Urine RBC 17 H Urine WBC 93 H Urine WBC Clumps Few H Urine Bacteria Many H Hyaline Casts 3 H Urine Mucus Few H Urine Opiates Screen Detected H U Benzodiazepines Scrn Detected H U Marijuana (THC) Screen Detected H 04/29/25 04/29/25 04/30/25 18:30 23:03 06:53 WBC Hgb Neutrophils # Lymphocytes # Eosinophils # PT INR Sodium 134 L Potassium 2.9 L Chloride 93 L BUN 27 H Creatinine 1.67 H Glucose POC Glucose (mg/dL) Total Bilirubin 1.6 H Troponin I 0.586 H* 1.010 H* Urine Protein Urine Ketones Urine Blood Ur Leukocyte Esterase Urine RBC Urine WBC Urine WBC Clumps Urine Bacteria Hyaline Casts Urine Mucus Urine Opiates Screen U Benzodiazepines Scrn U Marijuana (THC) Screen Assessment and Plan Assessment: Altered mental status, toxic metabolic encephalopathy Acute kidney injury Substance abuse Urinary tract infection A-fib with RVR Hypokalemia Elevated troponin Plan: Brain CT shows no acute bleed or mass effect, moderate generalized atrophy and chronic ischemic white matter changes, probable remote lacunar infarction left basal area and left thalamus UA shows moderate blood, large leukocyte esterase, many bacteria Urine toxicology positive for opiates, benzodiazepines, marijuana Obtain TSH, Vitamin B12, folate, ammonia Currently on Rocephin 2 g IVPB every 24 hours DVT prophylaxis: Eliquis 5 mg p.o. twice daily Dictation was produced using [employer] dictation software. please excuse any grammatical, word or spelling errors. Jose Angel Desai MD PGY-2 IM <Roberto Branham - Last Filed: 04/30/25 17:43> Physical Examination - Vital Signs Vital Signs: Vital Signs Temp Pulse Resp BP Pulse Ox 04/30/25 14:09 95 18 148/87 100 04/30/25 10:15 76 20 97 04/30/25 09:46 76 04/30/25 09:41 78 100 04/30/25 08:00 97.8 F 77 20 130/94 95 04/30/25 06:00 71 18 137/81 94 L 04/30/25 04:00 71 18 123/90 97 04/30/25 01:40 78 20 129/96 96 04/29/25 23:17 78 18 126/95 98 04/29/25 20:17 85 18 149/73 99 04/29/25 18:52 80 18 101/79 96 Results - Laboratory Findings CBC and BMP: 04/30/25 06:53 04/30/25 06:53 Abnormal Lab Findings: Abnormal Labs 04/29/25 04/29/25 04/29/25 14:53 14:53 14:53 WBC 12.38 H Hgb 17.2 H Neutrophils # 10.92 H Lymphocytes # 0.69 L Eosinophils # 0.01 L PT 14.7 H INR 1.4 H Sodium 134 L Potassium 3.3 L Chloride 91 L BUN 22 H Creatinine 2.02 H Glucose 107 H POC Glucose (mg/dL) Total Bilirubin 2.1 H Troponin I Urine Protein Urine Ketones Urine Blood Ur Leukocyte Esterase Urine RBC Urine WBC Urine WBC Clumps Urine Bacteria Hyaline Casts Urine Mucus Urine Opiates Screen U Benzodiazepines Scrn U Marijuana (THC) Screen 04/29/25 04/29/25 04/29/25 14:53 14:55 16:52 WBC Hgb Neutrophils # Lymphocytes # Eosinophils # PT INR Sodium Potassium Chloride BUN Creatinine Glucose POC Glucose (mg/dL) 118 H Total Bilirubin Troponin I 0.084 H* Urine Protein 1+ H Urine Ketones Trace H Urine Blood Moderate H Ur Leukocyte Esterase Large H Urine RBC 17 H Urine WBC 93 H Urine WBC Clumps Few H Urine Bacteria Many H Hyaline Casts 3 H Urine Mucus Few H Urine Opiates Screen Detected H U Benzodiazepines Scrn Detected H U Marijuana (THC) Screen Detected H 04/29/25 04/29/25 04/30/25 18:30 23:03 06:53 WBC Hgb Neutrophils # Lymphocytes # Eosinophils # PT INR Sodium 134 L Potassium 2.9 L Chloride 93 L BUN 27 H Creatinine 1.67 H Glucose POC Glucose (mg/dL) Total Bilirubin 1.6 H Troponin I 0.586 H* 1.010 H* Urine Protein Urine Ketones Urine Blood Ur Leukocyte Esterase Urine RBC Urine WBC Urine WBC Clumps Urine Bacteria Hyaline Casts Urine Mucus Urine Opiates Screen U Benzodiazepines Scrn U Marijuana (THC) Screen Assessment and Plan Plan: I personally got history, examined the patient. Patient has ADELFO, probable acute UTI and medication use (baclofen, benzo, lyrica and antidepressant) which likely these are contributing to patient confusion. Currently is doing better. I agree with the resident's assessment and plan. There is no further neurological work-up. Will sign off. Please reconsult if needed. Roberto Branham M.D. Time with Patient: Greater than 30
[2025-04-30] MEDS: HYDROcodone/APAP 5-325MG 1 EACH TAB PO PRN (16:28)
[2025-04-30] MEDS: ZOLPIDEM 5 MG TAB PO PRN (20:01)
[2025-04-30] MEDS: HALOPERIDOL LACTATE 5 MG/ML 1 ML VIAL IVP PRN (22:11)
[2025-05-01] MEDS: amLODIPine 2.5 MG TAB PO SCH (09:14)
[2025-05-01 09:59] LABS: Basophils # (A) 0.06 10*3/uL (0.00-0.10); Basophils % (A) 1.0 %; Eosinophils # (A) 0.12 10*3/uL (0.04-0.35); Eosinophils % (A) 2.1 %; HCT 53.5 % (39.6-50.0); HGB 18.0 g/dL (13.0-17.0); Lymphocytes # (A) 0.95 10*3/uL (0.90-5.00); Lymphocytes % (A) 16.4 %; MCH 30.5 pg (27.0-32.0); MCHC 33.6 g/dL (32.0-37.0); MCV 90.5 fL (80.0-97.0); Monocytes # (A) 0.37 10*3/uL (0.20-1.00); Monocytes % (A) 6.4 %; Neutrophils # (A) 4.26 10*3/uL (1.80-7.70); Neutrophils % (A) 73.8 %; Platelet Count 113 10*3/uL (140-440); RBC 5.91 10*6/uL (4.40-5.60); RDW 13.5 % (11.5-14.5); WBC 5.78 10*3/uL (4.50-10.00)
[2025-05-01 10:14] LABS: ALT 19 U/L (4-49); African American GFR (CKD) >90 (>60 ml/min/1.73 sqM); Anion Gap 14 mmol/L; Blood Urea Nitrogen 16 mg/dL (9-20); Calcium 9.4 mg/dL (8.4-10.2); Carbon Dioxide 24 mmol/L (22-30); Chloride 93 mmol/L (98-107); Glucose 62 mg/dL (74-99); Non-African American GFR(CKD) >90 (>60 ml/min/1.73 sqM); Sodium 131 mmol/L (137-145)
--- NOTE | 2025-05-01 10:15 | P.PN ---
Subjective Progress Note Date: 05/01/25 Reason for Consult (text): A-fib RVR History of present illness: This is a 54-year-old male patient previously seen by Dr. Mora with last office visit on 08/31/2020. He has a past medical history of permanent atrial fibrillation, hyperlipidemia, hypertension, diabetes mellitus type 2, tobacco use, obstructive sleep apnea and abnormal nuclear stress test. At the time of that office visit, it was recommended for cardiac catheterization which he unde rwent in August 2020 but had no further follow-up in the office. We have been asked to evaluate the patient for A-fib with RVR. Patient presented to the hospital due to mental status changes that have been intermittent for the past week. Patient was hospitalized on 04/23 for the same and signed out AMA. Patient denies chest pain or chest pressure. No shortness of breath. No lightheadedness or dizziness. Patient was found to be in atrial fibrillation with RVR was started on Cardizem drip. Patient is currently rate controlled. Blood pressure 130/94. Patient is seen today in the emergency center waiting for a bed on the cardiac stepdown unit. -EKG: Atrial fibrillation 89 bpm -Chest x-ray: No acute process. -CT brain: No acute bleed or mass effect. Moderate generalized atrophy and chronic ischemic white matter changes. -Laboratory studies: Troponin 0.084, 0.586, 1.01. WBC initially 12.3 now 9.4, hemoglobin 16.5, sodium 134, potassium 2.9, BUN 27 creatinine initially 2.02 now 1.67. Urinalysis positive for infection. Drug screen positive for opiates, benzodiazepines, marijuana. Serum alcohol less than 10. -Home cardiac medications: Eliquis 5 mg twice daily, Lopressor 50 mg twice daily. -Cardiac catheterization 09/09/2020 revealed mild CAD in the distal main, LAD and RCA 05/01/2025 Patient seen and examined in the emergency center, he is still waiting for bed on the cardiac stepdown unit. Patient denies chest pain no shortness of breath. He complains of feeling cold. Echocardiogram is pending. Patient remains in atrial fibrillation with controlled ventricular rate. Yesterday Lopressor was increased to 75 mg twice daily. Physical examination: Gen: This is a 54-year-old male in no acute distress. VS: reviewed HEENT: Head is atraumatic, normocephalic. Pupils equal, round. Sclerae is anicteric. NECK: Supple. No JVD. LUNGS: Clear to auscultation. No wheezes or rhonchi. No intercostal retractions. HEART: Regular rate and rhythm. No murmur. ABDOMEN: Soft No tenderness. EXTREMITIES: No pedal edema. No calf tenderness. NEUROLOGICAL: Patient is awake, alert. Assessment: Permanent atrial fibrillation with RVR, currently rate controlled Acute kidney injury Metabolic encephalopathy Hypokalemia Hyperlipidemia Hypertension Diabetes mellitus type 2 Tobacco use Obstructive sleep apnea Known abnormal nuclear stress test Plan: Continue patient's home cardiac medications with the following changes: Increase Lopressor to 75 mg twice daily Obtain 2-D echocardiogram and Doppler study to assess cardiac structure and function Cardiology will sign off this case and follow on an as-needed basis. Please reconsult for any new concerns. Patient may follow-up in the office with Dr. Mora in one to 2 weeks. Nurse practitioner note has been reviewed, I agree with documented findings and plan of care. Patient was seen and examined. Objective - Vital Signs Vital signs: Vital Signs Temp 97.8 F 04/30/25 08:00 Pulse 78 05/01/25 07:58 Resp 18 05/01/25 07:58 BP 159/121 05/01/25 07:58 Pulse Ox 92 L 05/01/25 07:58 FiO2 - Labs CBC & Chem 7: 05/01/25 09:13 04/30/25 06:53 Labs: Abnormal Lab Results - Last 24 Hours (Table) 05/01/25 Range/Units 09:13 RBC 5.91 H (4.40-5.60) 10*6/uL Hgb 18.0 H (13.0-17.0) g/dL Hct 53.5 H (39.6-50.0) % Plt Count 113 L (140-440) 10*3/uL MPV 12.6 H (9.5-12.2) fL
[2025-05-01 10:30] LABS: AST 49 U/L (17-59); Albumin 4.4 g/dL (3.5-5.0); Alkaline Phosphatase 108 U/L (38-126); Potassium 4.6 mmol/L (3.5-5.1); Total Protein 7.9 g/dL (6.3-8.2)
[2025-05-01] MEDS ORDERED: POTASSIUM CHLORIDE 10 MEQ in WATER FOR INJECTION 1 100ML.BAG IVPB SCH (12:15)
--- NOTE | 2025-05-01 13:07 | P.PN ---
Subjective History of Present Illness H&P Date: 04/30/25 History of present illness; patient 54-year-old gentleman with past medical history significant for A-fib, COPD who presented the ER for confusion. Patient was apparently in the ER a week ago with similar symptoms at which time patient had a fall and came in for confusion. Patient had a CT scan of the head at times was negative for acute intracranial process, patient was advised to stay in the hospital for neurology evaluation but patient left AGAINST MEDICAL ADVICE. Patient apparently was doing well till yesterday when noted the patient was very weak and confused, patient hard time getting out of the chair and was not able to make any sense of what he was saying. There was no obvious facial droop. There was no seizure-like activity. There was no weakness of any extremity. Because of this increasing confusion and weakness patient was bro ught to the ER Initial lab work done in the ER showed WBC 12.38, hemoglobin 17.2, platelet count 192, sodium 134, potassium 3.3, BUN 22, creatinine 2.02 glucose 107 troponin 0.084 UA positive for large amount of leukocyte Estrace, urine WBC 93, Urine toxicology positive for opioids, benzos, marijuana EKG done in the ER showed heart rate of116, irregular rate and rhythm, no ST segment elevation or depression seen, no T-wave inversions seen. Chest x-ray done in the ER no evidence for acute pulmonary process CT head done showed no acute intracranial process Patient admitted to internal medicine service 05/01/25 Patient seen at bedside, he is confused, he is a poor historian. He reports feeling very hot and weak for a couple days, he feels dizzy and was having trouble getting up. He was not able to provide details otherwise. Spoke to the on the phone she says he is normally very sharp, he is not on any medication out of the normal. She says that he usually drinks a lot of fluids but he has not been wanting to eat or drink for the last few days. He is also on Wegovy and has a decreased apatite and now worse than before. REVIEW OF SYSTEMS: CONSTITUTIONAL: No fever, no malaise, no fatigue. HEENT: No recent visual problems or hearing problems. Denied any sore throat. CARDIOVASCULAR: No chest pain, orthopnea, PND, no palpitations, no syncope. PULMONARY: No shortness of breath, no cough, no hemoptysis. GASTROINTESTINAL: No diarrhea, no nausea, no vomiting, no abdominal pain. NEUROLOGICAL: As mentioned above HEMATOLOGICAL: Denies any bleeding or petechiae. GENITOURINARY: Denies any burning micturition, frequency, or urgency. MUSCULOSKELETAL/RHEUMATOLOGICAL: Denies any joint pain, swelling, or any muscle pain. ENDOCRINE: Denies any polyuria or polydipsia. The rest of the 14-point review of systems is negative. PHYSICAL EXAMINATION: GENERAL: The patient is alert self and place, mental status waxes and wanes, ill looking. Alert only to person and place HEENT: Pupils are round and equally reacting to light. EOMI. No scleral icterus. No conjunctival pallor. Normocephalic, atraumatic. No pharyngeal erythema. No thyromegaly. CARDIOVASCULAR: S1 and S2 present. No murmurs, rubs, or gallops. PULMONARY: Chest is clear to auscultation, no wheezing or crackles. ABDOMEN: Soft, nontender, nondistended, normoactive bowel sounds. No palpable organomegaly. MUSCULOSKELETAL: No joint swelling or deformity. EXTREMITIES: No cyanosis, clubbing, or pedal edema. NEUROLOGICAL: Gross neurological examination did not reveal any focal deficits. SKIN: No rashes. Assessment Acute metabolic encephalopathy UTI A-fib with RVR ADELFO Hyponatremia Hypokalemia Elevated troponin History of chronic atrial fibrillation History of COPD Hypoglycemia Plan: MRI and EEG Diet ordered Monitor vital signs Monitor CBC Monitor CMP Continue telemetry monitoring Fall precaution Ordered neurochecks Ordered urine lites Ordered urine cultures Start IV Rocephin Continue IV fluids Resume Eliquis, continue Lopressor PT OT consulted DVT prophylaxis w/ eliquis GI prophylaxis w/ protonix Full Code Attestation I have seen and examined this patient with my resident , discussed the same with the resident/SHAY, and agree with the dictator's assessment and plan as written Dr. Dagoberto ruiz Objective - Vital Signs Vital signs: Vital Signs Temp 97.8 F 04/30/25 08:00 Pulse 78 05/01/25 07:58 Resp 18 05/01/25 07:58 BP 159/121 05/01/25 07:58 Pulse Ox 92 L 05/01/25 07:58 FiO2 - Labs CBC & Chem 7: 05/01/25 09:13 05/01/25 09:13 Labs: Abnormal Lab Results - Last 24 Hours (Table) 05/01/25 Range/Units 09:13 RBC 5.91 H (4.40-5.60) 10*6/uL Hgb 18.0 H (13.0-17.0) g/dL Hct 53.5 H (39.6-50.0) % Plt Count 113 L (140-440) 10*3/uL MPV 12.6 H (9.5-12.2) fL
--- NOTE | 2025-05-01 15:39 | CDI ---
Documentation Clarification Form Date: 05/01/2025 03:02:43 PM From: Dottie Lawson RN, CCDS Phone: [phone] Admit Date: 04/29/2025 04:47:00 PM Patient Name: Stevenson Romeo Visit Number: [id number] Discharge Date: ATTENTION: The Clinical Documentation Specialists (CDI) and [facility] Coding Staff appreciate your assistance in clarifying documentation. Please respond to the clarification below the line at the bottom and electronically sign. The CDI & [facility] Coding staff will review the response and follow-up if needed. Please note: Queries are made part of the Legal Health Record. If you have any questions, please contact the author of this message via ITS. . Tanisha FAN The patient has troponin level(s) of: 0.084, 0.586, and 1.010 on 04/29/25. Please clarify if there is an additional diagnosis and/or clinical significance related to this value. Patient history/risk factors: Permanent atrial fibrillation, hypertension, Diabetes mellitus, Hypertension, Obstructive sleep apnea Clinical indicators: 54-year-old male with known history of abnormal nuclear stress test. He was found to be in atrial fibrillation with RVR was started on Cardizem drip 04/[address] Deviation and Moderate T-Wave Abnormality consider anterior lateral ischemia vent rate: 89 bpm 04/29 VS: 94/74 79 18 98.3 04/29 Labs: Troponin 0.084, 0.586, 1.010; 04/29 Labs: NA 134, K+ 3.3, BUN 22 CR 2.02 05/02 ECHO: Left ventricular ejection fraction 50% No mitral regurgitation, No tricuspid regurgitation No pericardial effusion Treatment: Auto Locator / Telemetry Lopressor 75 MG PO BID 04/30-05/01 Eliquis 5 MG PO BID 04/29-04/30 Obtain 2-D echocardiogram and Doppler study to assess cardia structure and function Is there an additional diagnosis and/or clinical significance related to the above lab result information? [ x ] Type 2 GA due to (specify cause ___afib rvr ) [ ] Non-ischemic with acute myocardial injury [ ] No additional diagnosis/Not clinically significant [ ] Other, please specify [ ] Unable to determine Reference: [employer] Fourth [employer] Definition of Myocardial Infarction Elevated Cardiac Troponin >99th percentile with Troponin rise and/or fall With Acute ischemia o Acute Myocardial Infarction ? Atherosclerosis thrombosis Type I GA ? Oxygen supply and demand imbalance Type II GA (Please indicate etiology) Without acute ischemia o Acute Myocardial Injury (Template Last Reviewed: April 2023) MTDD
[2025-05-01 16:01] LABS: Vitamin B12 694.0 pg/mL (200.0-944.0)
[2025-05-01 16:36] LABS: Glucose,Whole Blood 81 mg/dL (70-110)
[2025-05-02 11:16] LABS: Glucose,Whole Blood 94 mg/dL (70-110)
--- NOTE | 2025-05-02 12:47 | P.PN ---
Subjective History of Present Illness H&P Date: 04/30/25 History of present illness; patient 54-year-old gentleman with past medical history significant for A-fib, COPD who presented the ER for confusion. Patient was apparently in the ER a week ago with similar symptoms at which time patient had a fall and came in for confusion. Patient had a CT scan of the head at times was negative for acute intracranial process, patient was advised to stay in the hospital for neurology evaluation but patient left AGAINST MEDICAL ADVICE. Patient apparently was doing well till yesterday when noted the patient was very weak and confused, patient hard time getting out of the chair and was not able to make any sense of what he was saying. There was no obvious facial droop. There was no seizure-like activity. There was no weakness of any extremity. Because of this increasing confusion and weakness patient was bro ught to the ER Initial lab work done in the ER showed WBC 12.38, hemoglobin 17.2, platelet count 192, sodium 134, potassium 3.3, BUN 22, creatinine 2.02 glucose 107 troponin 0.084 UA positive for large amount of leukocyte Estrace, urine WBC 93, Urine toxicology positive for opioids, benzos, marijuana EKG done in the ER showed heart rate of116, irregular rate and rhythm, no ST segment elevation or depression seen, no T-wave inversions seen. Chest x-ray done in the ER no evidence for acute pulmonary process CT head done showed no acute intracranial process Patient admitted to internal medicine service 05/01/25 Patient seen at bedside, he is confused, he is a poor historian. He reports feeling very hot and weak for a couple days, he feels dizzy and was having trouble getting up. He was not able to provide details otherwise. Spoke to the on the phone she says he is normally very sharp, he is not on any medication out of the normal. She says that he usually drinks a lot of fluids but he has not been wanting to eat or drink for the last few days. He is also on Wegovy and has a decreased apatite and now worse than before. 05/02/25 Patient seen at bedside, he is up and talking today able to give a clearer history. He reports feeling better today he was feeling weaker now starting to get his strength and mentation back today. He reports that he was picking up an [employer] package when he started to feel weak and doesnt remember much after that. He reports his PCP was perscribing wegovy for diabetes and recently discontinued it approximately 2 weeks ago and has not been eating well. He was able to report what he does for work, his medical history, conversations with his . FSG improved from 61 to 81 with food and 94 after breakfast Update 11a: Severely altered, can not operate phone, he is AOx1. REVIEW OF SYSTEMS: CONSTITUTIONAL: No fever, no malaise, no fatigue. HEENT: No recent visual problems or hearing problems. Denied any sore throat. CARDIOVASCULAR: No chest pain, orthopnea, PND, no palpitations, no syncope. PULMONARY: No shortness of breath, no cough, no hemoptysis. GASTROINTESTINAL: No diarrhea, no nausea, no vomiting, no abdominal pain. NEUROLOGICAL: As mentioned above HEMATOLOGICAL: Denies any bleeding or petechiae. GENITOURINARY: Denies any burning micturition, frequency, or urgency. MUSCULOSKELETAL/RHEUMATOLOGICAL: Denies any joint pain, swelling, or any muscle pain. ENDOCRINE: Denies any polyuria or polydipsia. The rest of the 14-point review of systems is negative. PHYSICAL EXAMINATION: GENERAL: The patient is alert self and place, mental status waxes and wanes, ill looking. A0x3 at 8am - HEENT: Pupils are round and equally reacting to light. EOMI. No scleral icterus. No conjunctival pallor. Normocephalic, atraumatic. No pharyngeal erythema. No thyromegaly. CARDIOVASCULAR: S1 and S2 present. No murmurs, rubs, or gallops. PULMONARY: Chest is clear to auscultation, no wheezing or crackles. ABDOMEN: Soft, nontender, nondistended, normoactive bowel sounds. No palpable organomegaly. MUSCULOSKELETAL: No joint swelling or deformity. EXTREMITIES: No cyanosis, clubbing, or pedal edema. NEUROLOGICAL: Gross neurological examination did not reveal any focal deficits. SKIN: No rashes. Assessment AMS Acute metabolic encephalopathy UTI A-fib with RVR ADELFO Hyponatremia Hypokalemia Elevated troponin History of chronic atrial fibrillation History of COPD Plan: MRI and EEG FS->81 will cpntinue to monitor Rocephin for UTI ACHS - Glucose 24hrC D/C ambien Consider Seroquel as alternative sleep aid Monitor vital signs Monitor CBC Monitor CMP Continue telemetry monitoring Fall precaution Ordered neurochecks Ordered urine lites - Pending Ordered urine cultures- Pending Continue IV fluids Resume Eliquis, continue Lopressor PT OT consulted DVT prophylaxis w/ eliquis GI prophylaxis w/ protonix Full Code Attestation I have seen and examined this patient with my resident , discussed the same with the resident/SHAY, and agree with the dictator's assessment and plan as written Dr. Dagoberto ruiz Objective - Vital Signs Vital signs: Vital Signs Temp 98.0 F 05/02/25 08:00 Pulse 76 05/02/25 08:13 Resp 16 05/02/25 08:00 BP 121/82 05/02/25 08:00 Pulse Ox 94 L 05/02/25 08:00 FiO2 Intake & Output 05/01/25 05/02/25 05/02/25 18:59 06:59 18:59 Intake Total 20 Balance 20 Weight 127.006 kg 103.5 kg Intake: IV 20 Invasive Line 1 20 Other: # Voids 2 - Labs CBC & Chem 7: 05/03/25 07:55 05/03/25 07:55 Labs: Abnormal Lab Results - Last 24 Hours (Table) 05/01/25 05/01/25 Range/Units 09:13 09:13 RBC 5.91 H (4.40-5.60) 10*6/uL Hgb 18.0 H (13.0-17.0) g/dL Hct 53.5 H (39.6-50.0) % Plt Count 113 L (140-440) 10*3/uL MPV 12.6 H (9.5-12.2) fL Sodium 131 L (137-145) mmol/L Chloride 93 L (98-107) mmol/L Glucose 62 L (74-99) mg/dL Total Bilirubin 2.2 H (0.2-1.3) mg/dL Microbiology - Last 24 Hours (Table) 04/29/25 16:52 Urine Culture - Preliminary Urine,Voided Gram Neg Bacilli
--- NOTE | 2025-05-02 12:48 | P.PN ---
Subjective Progress Note Date: 05/02/25 Principal diagnosis: Patient seen and examined at bedside today. Patient's mentation is still altered. at bedside. feels he is still confused and neurology was asked to re-evaluate the patient again. is concerned patient might had a stroke because of his confusion. Patient has acute UTI and is on Ceftriaxone. Vital signs are stable. Sodium 131, total bilirubin 2.2, hemoglobin 18 Objective - Vital Signs Vital signs: Vital Signs Temp 98.0 F 05/02/25 08:00 Pulse 76 05/02/25 08:13 Resp 16 05/02/25 08:00 BP 121/82 05/02/25 08:00 Pulse Ox 94 L 05/02/25 08:00 FiO2 Intake & Output 05/01/25 05/02/25 05/02/25 18:59 06:59 18:59 Intake Total 20 10 Balance 20 10 Weight 127.006 kg 103.5 kg Intake: IV 20 10 Invasive Line 1 20 10 Other: Voiding Method Diaper # Voids 2 - Exam General: no distress, lying in bed. Neuro: alert and oriented to person only Extraocular movements intact no nystagmus no facial weakness. Face is symmetric No facial weakness. Has mild dysarthria. Motor: The strength is 4 out of 5 in all 4 extremities Deep tendon reflexes are symmetric 1 at the biceps, brachioradialis, knees and plantars indeterminate Sensory to touch is equal Cerebellar function showed no ataxia for lreaml-ub-vori testing and phnq-je-xbvi testing, no dysdiachokinesia - Labs CBC & Chem 7: 05/01/25 09:13 05/01/25 09:13 Labs: Microbiology - Last 24 Hours (Table) 04/29/25 16:52 Urine Culture - Preliminary Urine,Voided Gram Neg Bacilli Assessment and Plan Assessment: Altered mental status likely due to acute UTI and metabolic encephalopathy (had hypoglycemia) and acute UTI is excerbated by his polysedative (Lyrica, Benzo, [place], Baclofen). Acute kidney injury Substance abuse Urinary tract infection A-fib with RVR Hypokalemia Elevated troponin Plan: Brain CT shows no acute bleed or mass effect, moderate generalized atrophy and chronic ischemic white matter changes, probable remote lacunar infarction left basal area and left thalamus UA shows moderate blood, large leukocyte esterase, many bacteria Urine culture is growing gram-negative bacilli Urine toxicology positive for opiates, benzodiazepines, marijuana TSH 0.807, vitamin B12 694, ammonia < 9, A1c 5.0 Recommend as much as possible avoid sedative or opiates which can affect neurological examination. Currently on Rocephin 2 g IVPB every 24 hours Obtain MRI brain, EEG, echocardiogram DVT prophylaxis: Eliquis 5 mg p.o. twice daily Dictation was produced using [employer] - how to [place] dictation software. please excuse any grammatical, word or spelling errors. Jose Angel Desai MD PGY-2 IM ADDENDUM: I personally agree with resident's assessment and plan. EEG: Showed mild encephalopathy but no seizure or discharges Rest of result were reviewed. Roberto Branham M.D. Dr. Salamanca will resume neurology service tomorrow A.M. then Dr. Lazar will resume this Monday A.M. Time with Patient: Less than 30
--- NOTE | 2025-05-02 14:42 | P.PN ---
Progress Note - Text Progress Note Date: 05/02/25 Preliminary routine EEG: Mild encephalopathy. No epileptiform discharges or seizure on the EEG.
--- NOTE | 2025-05-02 15:11 | EEG ---
ELECTROENCEPHALOGRAM REPORT CLINICAL HISTORY: This is a 54-year-old gentleman with altered mental status. The video EEG is obtained to evaluate for seizure epileptiform activity. RELEVANT MEDICATIONS: Laretol, baclofen, Haldol. EEG TYPE: Routine 21 channel EEG is performed with video using the 10/20 electrode placement system. DESCRIPTION: Wakefulness is only obtained. During awake state, posterior-dominant rhythm consists of qvg-gn-ndedaovi voltage of 7 to 7.5 hertz activity that is well modulated, well sustained. There is no physiological stage 2 sleep architecture. There is no focal slowing. Interictal and ictal are none. ACTIVATION PROCEDURE: Photic stimulation did not evoke a posterior driving response. There is no abnormality during the photic stimulation. Hyperventilation is not performed. CLINICAL INTERPRETATION: This is an abnormal routine EEG during awake state. The background slowing is suggestive of mild encephalopathy. There is no focal slowing, epileptiform discharge, or seizure on the EEG. The lack of epileptiform discharge does not rule out underlying epilepsy. Clinical correlation is recommended. MMNALINI / IJN: [id number] / GAVINO
--- NOTE | 2025-05-02 15:20 | CA ---
Transthoracic Echo Report Name: Stevenson Romeo Age: 54 Gender: M : 1970 Exam Date: 05/02/2025 13:22 Exam Location: [facility] Ht (in): 72 Wt (lb): 280 Ordering Physician: Tanisha Fermin Attending/Referring Phys: [id number], Jeny Psychology Technician Kay Scott RDCS Procedure CPT: Indications: lvf, NSTEMI Cardiac Hx: Technical Quality: Technically difficult study Contrast 1: Definity Total Dose (mL): 2 Contrast 2: Total Dose (mL): MEASUREMENTS (Male / Female) Normal Values 2D ECHO LV Diastolic Diameter PLAX 4.2 cm 4.2 - 5.9 / 3.9 - 5.3 cm LV Systolic Diameter PLAX 3.0 cm IVS Diastolic Thickness 1.3 cm 0.6 - 1.0 / 0.6 - 0.9 cm LVPW Diastolic Thickness 1.6 cm 0.6 - 1.0 / 0.6 - 0.9 cm LV Relative Wall Thickness 0.7 RV Internal Dim ED PLAX 3.4 cm LA Systolic Diameter LX 3.8 cm 3.0 - 4.0 / 2.7 - 3.8 cm M-MODE Aortic Root Diameter MM 2.9 cm AV Cusp Separation MM 1.9 cm DOPPLER AV Peak Velocity 118.1 cm/s AV Peak Gradient 5.6 mmHg MV Area PHT 3.6 cm??? TR Peak Velocity 207.3 cm/s TR Peak Gradient 17.2 mmHg Right Ventricular Systolic Press 27.2 mmHg FINDINGS Left Ventricle Left ventricular ejection fraction is estimated at 50 %. Left ventricular cavity size normal. Mildly increased septal wall thickness. Right Ventricle Normal right ventricular size. Right ventricular systolic pressure within normal limits. Right Atrium Mild right atrial dilatation. No right atrial thrombus or mass seen. Left Atrium Normal left atrial size. No left atrial thrombus or mass present. Mitral Valve Structurally normal mitral valve. No mitral stenosis, regurgitation or prolapse. Aortic Valve Trileaflet aortic valve. No aortic valve stenosis or regurgitation. Tricuspid Valve Structurally normal tricuspid valve. No tricuspid regurgitation. Pulmonic Valve No pulmonic regurgitation. Pericardium No pericardial effusion. Aorta Normal size aortic root and proximal ascending aorta. CONCLUSIONS Left ventricular ejection fraction 50% RVSP 27 No mitral regurgitation No tricuspid regurgitation No pericardial effusion Previewed by: Dr. Luke Llanes DO (Electronically Signed) Final Date: 02 May 2025 15:19
[2025-05-02 16:24] LABS: Glucose,Whole Blood 98 mg/dL (70-110)
[2025-05-02 20:08] LABS: Glucose,Whole Blood 111 mg/dL (70-110)
[2025-05-03 06:19] LABS: Glucose,Whole Blood 108 mg/dL (70-110)
[2025-05-03 08:29] LABS: Basophils # (A) 0.04 10*3/uL (0.00-0.10); Basophils % (A) 0.8 %; Eosinophils # (A) 0.18 10*3/uL (0.04-0.35); Eosinophils % (A) 3.4 %; HCT 47.3 % (39.6-50.0); HGB 16.5 g/dL (13.0-17.0); Immature Platelet Fraction 6.7 % (1.1-6.1); Lymphocytes # (A) 1.30 10*3/uL (0.90-5.00); Lymphocytes % (A) 24.4 %; MCH 30.9 pg (27.0-32.0); MCHC 34.9 g/dL (32.0-37.0); MCV 88.6 fL (80.0-97.0); Monocytes # (A) 0.54 10*3/uL (0.20-1.00); Monocytes % (A) 10.2 %; Neutrophils # (A) 3.25 10*3/uL (1.80-7.70); Neutrophils % (A) 61.0 %; Platelet Count 129 10*3/uL (140-440); RBC 5.34 10*6/uL (4.40-5.60); RDW 12.9 % (11.5-14.5); WBC 5.32 10*3/uL (4.50-10.00)
[2025-05-03 08:44] LABS: African American GFR (CKD) >90 (>60 ml/min/1.73 sqM); Anion Gap 9 mmol/L; Blood Urea Nitrogen 14 mg/dL (9-20); Calcium 8.7 mg/dL (8.4-10.2); Carbon Dioxide 33 mmol/L (22-30); Chloride 92 mmol/L (98-107); Glucose 123 mg/dL (74-99); Non-African American GFR(CKD) >90 (>60 ml/min/1.73 sqM); Sodium 134 mmol/L (137-145)
[2025-05-03 09:08] LABS: Potassium 2.7 mmol/L (3.5-5.1)
[2025-05-03] MEDS ORDERED: BACLOFEN 10 MG TAB PO PRN (09:45)
[2025-05-03] MEDS: POTASSIUM CHLORIDE ER 20 MEQ TAB.ER PO STA ×2 (09:55→13:21)
[2025-05-03 11:17] LABS: Glucose,Whole Blood 104 mg/dL (70-110)
[2025-05-03] MEDS ORDERED: Magnesium Replacement Protocol 1 EACH MISC MISCELLANE PRN ×2 (11:45→16:03)
--- NOTE | 2025-05-03 11:49 | P.PN ---
Subjective Progress Note Date: 05/03/25 History of present illness; patient 54-year-old gentleman with past medical history significant for A-fib, COPD who presented the ER for confusion. Patient was apparently in the ER a week ago with similar symptoms at which time patient had a fall and came in for confusion. Patient had a CT scan of the head at times was negative for acute intracranial process, patient was advised to stay in the hospital for neurology evaluation but patient left AGAINST MEDICAL ADVICE. Patient apparently was doing well till yesterday when noted the patient was very weak and confused, patient hard time getting out of the chair and was not able to make any sense of what he was saying. There was no obvious facial droop. There was no seizure-like activity. There was no weakness of any extremity. Because of this increasing confusion and weakness patient was brought to the ER Initial lab work done in the ER showed WBC 12.38, hemoglobin 17.2, platelet count 192, sodium 134, potassium 3.3, BUN 22, creatinine 2.02 glucose 107 troponin 0.084 UA positive for large amount of leukocyte Estrace, urine WBC 93, Urine toxicology positive for opioids, benzos, marijuana EKG done in the ER showed heart rate of116, irregular rate and rhythm, no ST segment elevation or depression seen, no T-wave inversions seen. Chest x-ray done in the ER no evidence for acute pulmonary process CT head done showed no acute intracranial process Patient admitted to internal medicine service 05/01/25 Patient seen at bedside, he is confused, he is a poor historian. He reports feeling very hot and weak for a couple days, he feels dizzy and was having trouble getting up. He was not able to provide details otherwise. Spoke to the on the phone she says he is normally very sharp, he is not on any medication out of the normal. She says that he usually drinks a lot of fluids but he has not been wanting to eat or drink for the last few days. He is also on Wegovy and has a decreased apatite and now worse than before. 05/02/25 Patient seen at bedside, he is up and talking today able to give a clearer history. He reports feeling better today he was feeling weaker now starting to get his strength and mentation back today. He reports that he was picking up an [employer] package when he started to feel weak and doesnt remember much after that. He reports his PCP was perscribing wegovy for diabetes and recently discontinued it approximately 2 weeks ago and has not been eating well. He was able to report what he does for work, his medical history, conversations with his . 05/03/2025: Pt seen at bedside, no significant overnight events. States he's feeling well, no complaints and concerns at this time. PHYSICAL EXAMINATION: GENERAL: The patient is still altered, is aware of self, believes the year is 2025, alternates between believing he is in [place] and [place] HEENT: Pupils are round and equally reacting to light. EOMI. No scleral icterus. No conjunctival pallor. Normocephalic, atraumatic. No pharyngeal erythema. No thyromegaly. CARDIOVASCULAR: S1 and S2 present. No murmurs, rubs, or gallops. PULMONARY: Chest is clear to auscultation, no wheezing or crackles. ABDOMEN: Soft, nontender, nondistended, normoactive bowel sounds. No palpable organomegaly. MUSCULOSKELETAL: No joint swelling or deformity. EXTREMITIES: No cyanosis, clubbing, or pedal edema. NEUROLOGICAL: Gross neurological examination did not reveal any focal deficits. SKIN: No rashes. Labs: WBC 5.32, hemoglobin 16.5, platelets 129, sodium 134, potassium 2.7, chloride 92, bicarb 33, and magnesium 1.3, urine random creatinine 198.2, and urine random sodium 64 Imaging: EEG showed background slowing suggestive of mild encephalopathy. Echo showed EF 50%, RVSP 27, no MR, no TR, no pericardial effusion. Assessment AMS Acute metabolic encephalopathy UTI A-fib with RVR ADELFO Hyponatremia Hypokalemia Elevated troponin History of chronic atrial fibrillation History of COPD Plan: #AMS potentially secondary to UTI versus polypharmacy versus hypoglycemia #UTI from E. coli ESBL - Discontinued Rocephin, started meropenem 500 mg 3 times daily - MRI brain pending - Echo results stated above, cardiology has signed off at this point recommended continue home cardiac medications increasing Lopressor to 75 mg twice daily and to follow-up with Dr. Mora in 1 to 2 weeks outpatient - Decreased dose baclofen - Continue telemetry monitoring - Fall precautions and neurochecks - Neurology on consult, appreciate further recommendations - Continue IV fluids - PT OT consulted - Continue Eliquis and Lopressor #Hypokalemia: #Hypomagnesemia - Gave 80 mill equivalents potassium chloride - Recheck potassium in the a.m. - Replace magnesium per protocol DVT prophylaxis w/ eliquis GI prophylaxis w/ protonix Full Code Objective - Vital Signs Vital signs: Vital Signs Temp 98.0 F 05/03/25 04:00 Pulse 76 05/03/25 07:50 Resp 16 05/03/25 04:00 BP 121/79 05/03/25 04:00 Pulse Ox 95 05/03/25 04:00 FiO2 Intake & Output 05/02/25 05/03/25 05/03/25 18:59 06:59 18:59 Intake Total 800 10 Output Total 225 Balance 575 10 Weight 103.5 kg Intake: IV 20 10 Invasive Line 1 20 10 Oral 780 Output: Urine 225 Other: Voiding Method Diaper Diaper # Voids 1 - Labs CBC & Chem 7: 05/03/25 07:55 05/03/25 07:55 Labs: Abnormal Lab Results - Last 24 Hours (Table) 05/02/25 Range/Units 20:07 POC Glucose (mg/dL) 111 H (70-110) mg/dL Microbiology - Last 24 Hours (Table) 04/29/25 16:52 Urine Culture - Final Urine,Voided Escherichia coli ESBL
--- NOTE | 2025-05-03 12:56 | MR ---
EXAMINATION TYPE: MR brain wo con DATE OF EXAM: 05/03/2025 12:15 PM COMPARISON: 04/29/2025.. CLINICAL INDICATION: Male, 54 years old with history of ams; TECHNIQUE: Multi planar, multi sequence imaging was performed through the brain including: T1, T2, In version recovery, Diffusion weighted imaging, and gradient echo imaging. No gadolinium was given. FINDINGS: Restricted diffusion within the right basal ganglia, left external capsule, bilateral occip ital lobes, left frontal lobe, left temporal lobe . Scattered T2 center is also present from the prio r injuries including the thaddeus bilateral frontal lobes The naylor-white junctions, ventricular system, basal cisterns appear unremarkable. Scattered foci of high Signal intensity are seen within the periventricular white matter. Midline structures show no a bnormality. The susceptibility weighted images do not reveal any evidence for micro-hemorrhage. The bone marrow signal is within normal limits. Paranasal sinuses and mastoid air cells: No significant paranasal sinus disease. Visualized orbits: Orbital contents are intact. IMPRESSION: 1. Scattered areas of restricted diffusion in multiple vascular territories correlate for embolic phe nomenon. Additional scattered remote injuries. 2. Extensive confluent Nonspecific white matter changes, likely secondary to small vessel ischemic di sease. [facility], , 05/03/2025 12:54 PM
[2025-05-03] MEDS: MEROPENEM 500 MG in SODIUM CHLORIDE 0.9% 100 ML IVPB SCH (13:47)
[2025-05-03 16:13] LABS: Glucose,Whole Blood 98 mg/dL (70-110)
[2025-05-03] MEDS: MAGNESIUM SULFATE-D5W PMX 1 GM in DEXTROSE/WATER 1 100ML.BAG IVPB SCH (16:39)
[2025-05-03 20:25] LABS: Glucose,Whole Blood 94 mg/dL (70-110)
[2025-05-03] MEDS: PREGABALIN 25 MG CAP PO SCH (20:39)
[2025-05-04] MEDS: MEROPENEM 1 GM in SODIUM CHLORIDE 0.9% 100 ML IVPB SCH (03:25)
[2025-05-04 06:20] LABS: Glucose,Whole Blood 96 mg/dL (70-110)
[2025-05-04 07:59] LABS: Basophils # (A) 0.03 10*3/uL (0.00-0.10); Basophils % (A) 0.6 %; Eosinophils # (A) 0.19 10*3/uL (0.04-0.35); Eosinophils % (A) 3.7 %; HCT 49.2 % (39.6-50.0); HGB 16.8 g/dL (13.0-17.0); Lymphocytes # (A) 1.46 10*3/uL (0.90-5.00); Lymphocytes % (A) 28.4 %; MCH 30.4 pg (27.0-32.0); MCHC 34.1 g/dL (32.0-37.0); MCV 89.0 fL (80.0-97.0); Monocytes # (A) 0.47 10*3/uL (0.20-1.00); Monocytes % (A) 9.1 %; Neutrophils # (A) 2.98 10*3/uL (1.80-7.70); Neutrophils % (A) 58.0 %; Platelet Count 142 10*3/uL (140-440); RBC 5.53 10*6/uL (4.40-5.60); RDW 13.1 % (11.5-14.5); WBC 5.14 10*3/uL (4.50-10.00)
[2025-05-04 08:21] LABS: ALT 17 U/L (4-49); AST 27 U/L (17-59); African American GFR (CKD) >90 (>60 ml/min/1.73 sqM); Albumin 3.9 g/dL (3.5-5.0); Alkaline Phosphatase 108 U/L (38-126); Anion Gap 10 mmol/L; Blood Urea Nitrogen 11 mg/dL (9-20); Calcium 9.1 mg/dL (8.4-10.2); Carbon Dioxide 32 mmol/L (22-30); Chloride 94 mmol/L (98-107); Glucose 83 mg/dL (74-99); Magnesium 1.9 mg/dL (1.6-2.3); Non-African American GFR(CKD) >90 (>60 ml/min/1.73 sqM); Potassium 3.2 mmol/L (3.5-5.1); Sodium 136 mmol/L (137-145); Total Protein 7.2 g/dL (6.3-8.2)
[2025-05-04] MEDS: POTASSIUM CHLORIDE ER 20 MEQ TAB.ER PO STA (08:22)
[2025-05-04 11:25] LABS: Glucose,Whole Blood 89 mg/dL (70-110)
[2025-05-04] MEDS: ZINC OXIDE PASTE (Z-GUARD) 1 APPLIC TOPICAL PRN (11:26)
--- NOTE | 2025-05-04 11:42 | P.PN ---
Subjective Progress Note Date: 05/03/25 History of present illness; patient 54-year-old gentleman with past medical history significant for A-fib, COPD who presented the ER for confusion. Patient was apparently in the ER a week ago with similar symptoms at which time patient had a fall and came in for confusion. Patient had a CT scan of the head at times was negative for acute intracranial process, patient was advised to stay i the hospital for neurology evaluation but patient left AGAINST MEDICAL ADVICE. Patient apparently was doing well till yesterday when noted the patient was very weak and confused, patient hard time getting out of the chair and was not able to make any sense of what he was saying. There was no obvious facial droop. There was no seizure-like activity. There was no weakness of any extremity. Because of this increasing confusion and weakness patient was brought to the ER Initial lab work done in the ER showed WBC 12.38, hemoglobin 17.2, platelet count 192, sodium 134, potassium 3.3, BUN 22, creatinine 2.02 glucose 107 troponin 0.084 UA positive for large amount of leukocyte Estrace, urine WBC 93, Urine toxicology positive for opioids, benzos, marijuana EKG done in the ER showed heart rate of116, irregular rate and rhythm, no ST segment elevation or depression seen, no T-wave inversions seen. Chest x-ray done in the ER no evidence for acute pulmonary process CT head done showed no acute intracranial process Patient admitted to internal medicine service 05/01/25 Patient seen at bedside, he is confused, he is a poor historian. He reports feeling very hot and weak for a couple days, he feels dizzy and was having trouble getting up. He was not able to provide details otherwise. Spoke to the on the phone she says he is normally very sharp, he is not on any medication out of the normal. She says that he usually drinks a lot of fluids but he has not been wanting to eat or drink for the last few days. He is also on Wegovy and has a decreased apatite and now worse than before. 05/02/25 Patient seen at bedside, he is up and talking today able to give a clearer history. He reports feeling better today he was feeling weaker now starting to get his strength and mentation back today. He reports that he was picking up an [employer] package when he started to feel weak and doesnt remember much after that. He reports his PCP was perscribing wegovy for diabetes and recently discontinued it approximately 2 weeks ago and has not been eating well. He was able to report what he does for work, his medical history, conversations with his . 05/03/2025: Pt seen at bedside, no significant overnight events. States he's feeling well, no complaints and concerns at this time. PHYSICAL EXAMINATION: GENERAL: The patient is still altered, is aware of self, believes the year is 2025, alternates between believing he is in [place] and [place] HEENT: Pupils are round and equally reacting to light. EOMI. No scleral icterus. No conjunctival pallor. Normocephalic, atraumatic. No pharyngeal erythema. No thyromegaly. CARDIOVASCULAR: S1 and S2 present. No murmurs, rubs, or gallops. PULMONARY: Chest is clear to auscultation, no wheezing or crackles. ABDOMEN: Soft, nontender, nondistended, normoactive bowel sounds. No palpable organomegaly. MUSCULOSKELETAL: No joint swelling or deformity. EXTREMITIES: No cyanosis, clubbing, or pedal edema. NEUROLOGICAL: Gross neurological examination did not reveal any focal deficits. SKIN: No rashes. Labs: WBC 5.32, hemoglobin 16.5, platelets 129, sodium 134, potassium 2.7, chloride 92, bicarb 33, and magnesium 1.3, urine random creatinine 198.2, and urine random sodium 64 Imaging: EEG showed background slowing suggestive of mild encephalopathy. Echo showed EF 50%, RVSP 27, no MR, no TR, no pericardial effusion. Assessment AMS Acute metabolic encephalopathy UTI A-fib with RVR ADELFO Hyponatremia Hypokalemia Elevated troponin History of chronic atrial fibrillation History of COPD Plan: #AMS potentially secondary to UTI versus polypharmacy versus hypoglycemia -MRI shows restricted diffusion in multiple vascular territories consistent with emboli - Recommendations from cardiology and neurology appreciated - Echo results stated above, cardiology has signed off at this point recommended continue home cardiac medications increasing Lopressor to 75 mg twice daily and to follow-up with Dr. Mora in 1 to 2 weeks outpatient - Decreased dose baclofen - Continue telemetry monitoring - Fall precautions and neurochecks - Continue IV fluids - PT OT consulted - Continue Eliquis and Lopressor #UTI from E. coli ESBL - meropenem 500 mg 3 times daily #Hypokalemia: #Hypomagnesemia - Gave 80 mill equivalents potassium chloride - Recheck potassium in the a.m. - Replace magnesium per protocol DVT prophylaxis w/ eliquis GI prophylaxis w/ protonix Full Code Objective - Vital Signs Vital signs: Vital Signs Temp 98.1 F 05/04/25 04:00 Pulse 76 05/04/25 08:06 Resp 18 05/04/25 04:00 BP 124/84 05/04/25 04:00 Pulse Ox 93 L 05/03/25 23:28 FiO2 Intake & Output 05/03/25 05/04/25 05/04/25 18:59 06:59 18:59 Intake Total 890 420 Output Total 250 Balance 890 170 Weight 113 kg Intake: Intake, IV Titration 50 300 Amount Magnesium Sulfate-D5w Pmx 200 1 gm In Dextrose/Water 1 100ml.bag @ 100 mls/hr IVPB Q1H [facility]I Rx#: [id number] Meropenem 1 gm In Sodium 100 Chloride 0.9% 100 ml @ 33 .3 mls/hr IVPB Q8H [facility] Rx #:[id number] cefTRIAXone 2 gm In 50 Sodium Chloride 0.9% 50 ml @ 100 mls/hr IVPB Q24HR [facility] Rx#:[id number] Oral 840 120 Output: Urine 250 Other: Voiding Method Diaper Diaper # Voids 200 - Labs CBC & Chem 7: 05/04/25 06:13 05/04/25 06:13 Labs: Abnormal Lab Results - Last 24 Hours (Table) 05/03/25 05/03/25 05/03/25 Range/Units 07:55 07:55 07:55 Plt Count 129 L (140-440) 10*3/uL Immature Plt Fraction 6.7 H (1.1-6.1) % Sodium 134 L (137-145) mmol/L Potassium 2.7 L* (3.5-5.1) mmol/L Chloride 92 L (98-107) mmol/L Carbon Dioxide 33 H (22-30) mmol/L Glucose 123 H (74-99) mg/dL Magnesium 1.3 L (1.6-2.3) mg/dL
[2025-05-04 16:29] LABS: Glucose,Whole Blood 94 mg/dL (70-110)
[2025-05-04 20:00] LABS: Glucose,Whole Blood 151 mg/dL (70-110)
--- NOTE | 2025-05-04 22:59 | P.CONS ---
History of Present Illness - Reason for Consult Consult date: 05/04/25 ESBL E. coli UTI Requesting physician: Didi Medina - Chief Complaint Weakness mental status changes x few days - History of Present Illness Patient is a 54-year-old male past medical history of again forAtrial Fibrillation, Asthma, Diabetes Mellitus, GERD/Reflux, Hyperlipidemia, Hypertension presenting to the hospital 5 days ago for evaluation of change in mental status symptom apparently has been getting worse for about a week noticed to have more confusion and can only stand to transfer since then patient has been admitted to hospital and has been evaluated multiple consultants including neurology cardiology services patient has been afebrile during this hospital stay tachycardic on admission subsequent resolved not hypotensive or hypoxic no need for supplemental oxygen patient did have a elevated white count on admission subsequently normalized BUN and creatinine was elevated that has subsequently improved liver enzymes are normal patient did have a UA obtained on 04/29/2025 which was positive and the culture not finalized with more than 100,000 colonies of ESBL E. coli that interestingly was finalized on 05/02/2025 patient has been started on meropenem today infectious disease was consulted for further management of antibiotic therapy patient denies having any headache or URI symptoms patient denies having any chest pain shortness of breath or cough no nausea no vomiting he did have significant urination as well as burning and concentrated urine did have some diarrhea patient workup also include a brain MRI completed yesterday which did show scattered areas of restricted diffusion concerning for embolic phenomena as well as small vessel ischemic disease patient did have an echocardiogram this admission did not show any valvular vegetation though he did have EF of 50%Patient did have abdominal bladder ultrasound on 04/30/2025 that was unremarkable with no hydronephrosis Review of Systems Positive point and negatives has been mentioned in the HPI, complete review of systems was performed and all other systems are negative Past Medical History Past Medical History: Atrial Fibrillation, Asthma, Diabetes Mellitus, GERD/Reflux, Hyperlipidemia, Hypertension Additional Past Medical History / Comment(s): neuropathy, MIGRAINE HEADACHE History of Any Multi-Drug Resistant Organisms: ESBL Year Discovered:: 08/25/20 MDRO Source:: ESBL URINE Additional Past Surgical History / Comment(s): toe amputation Past Anesthesia/Blood Transfusion Reactions: No Reported Reaction Past Psychological History: Depression Smoking Status: Current every day smoker Past Alcohol Use History: None Reported Additional Past Alcohol Use History / Comment(s): STARTED SMOKING AT AGE 15 SMOKES 1 1/2 PPD Past Drug Use History: None Reported Additional Drug Use History / Comment(s): OCCASIONAL - Past Family History Mother Family Medical History: No Reported History Medications and Allergies Home Medications Medication Instructions Recorded Confirmed Type Budesonide/Formoterol Fumarate 2 puff INHALATION RT-BID 04/10/20 04/29/25 History [Symbicort 160-4.5 Mcg Inhaler] HYDROcodone/APAP 5-325MG [Renick 1 - 2 tab PO Q6H PRN 04/10/20 04/29/25 History 5-325] Pregabalin [Lyrica] 50 mg PO BID 04/10/20 04/29/25 History Apixaban [Eliquis] 5 mg PO BID #60 tab 04/11/20 04/29/25 Rx Baclofen [Lioresal] 20 mg PO BID PRN 09/15/22 04/29/25 History Metoprolol Tartrate [Lopressor] 50 mg PO BID #60 tab 09/15/22 04/29/25 Rx Omeprazole 40 mg PO DAILY 09/15/22 04/29/25 History Albuterol Sulfate [Ventolin HFA] 2 puff INHALATION RT-DAILY 04/24/25 04/29/25 History FLUoxetine HCL 40 mg PO DAILY 04/24/25 04/29/25 History Fluticasone/Vilanterol [Breo 1 puff INHALATION RT-DAILY 04/24/25 04/29/25 History Ellipta 100-25 Mcg Inhalr] Loratadine [Claritin] 10 mg PO DAILY 04/24/25 04/29/25 History SUMAtriptan succinate [Imitrex] 100 mg PO BID PRN 04/24/25 04/29/25 History Semaglutide [Wegovy] 1 mg SQ SA 04/24/25 04/29/25 History Sildenafil [Revatio] 60 - 100 mg PO DAILY PRN 04/24/25 04/29/25 History Zolpidem [Ambien] 10 mg PO HS PRN 04/24/25 04/29/25 History tadalafiL 20 mg PO DAILY PRN 04/24/25 04/29/25 History Allergies Allergy/AdvReac Type Severity Reaction Status Date / Time codeine AdvReac Paralysis Verified 04/29/25 14:28 of Legs ergotamine [From Cafergot] AdvReac Paralysis Verified 04/29/25 14:28 of Legs Physical Exam Vitals: Vital Signs Temp Pulse Pulse Resp BP Pulse Ox 05/04/25 11:29 97.5 F L 77 16 125/86 98 05/04/25 08:06 76 05/04/25 08:00 98.0 F 77 16 105/69 99 05/04/25 07:57 75 05/04/25 04:00 98.1 F 66 18 124/84 05/04/25 02:00 70 16 05/03/25 23:28 70 16 118/82 93 L 05/03/25 20:00 98.2 F 68 18 136/86 94 L 05/03/25 16:00 98.0 F 84 16 121/80 94 L 05/03/25 13:04 80 18 Intake and Output 05/03/25 05/04/25 05/04/25 22:59 06:59 14:59 Intake Total 420 240 Output Total 250 Balance 170 240 Intake: Intake, IV Titration 300 Amount Magnesium Sulfate-D5w Pmx 200 1 gm In Dextrose/Water 1 100ml.bag @ 100 mls/hr IVPB Q1H [facility] Rx#: [id number] Meropenem 1 gm In Sodium 100 Chloride 0.9% 100 ml @ 33 .3 mls/hr IVPB Q8H [facility] Rx #:[id number] Oral 120 240 Output: Urine 250 Other: Voiding Method Diaper Diaper Diaper # Voids 200 Weight 113 kg GENERAL DESCRIPTION: Middle-age male lying in bed, no distress. No tachypnea or accessory muscle of respiration use. HEENT: Shows Pallor , no scleral icterus. Oral mucous membrane is dry. NECK: Trachea central, no thyromegaly. LUNGS: Unlabored breathing. Clear to auscultation anteriorly. No wheeze or crackle. HEART: S1, S2, regular rate and rhythm. No loud murmur ABDOMEN: Soft, no tenderness , guarding or rigidity, no organomegaly EXTREMITIES: No edema of feet. SKIN: No rash, no masses palpable. NEUROLOGICAL: The patient is awake, alert, oriented x3, mood and affect normal. Results CBC & Chem 7: 05/06/25 08:02 05/06/25 08:02 Labs: Abnormal Lab Results - Last 24 Hours (Table) 05/04/25 Range/Units 06:13 Sodium 136 L (137-145) mmol/L Potassium 3.2 L (3.5-5.1) mmol/L Chloride 94 L (98-107) mmol/L Carbon Dioxide 32 H (22-30) mmol/L Assessment and Plan (1) UTI due to extended-spectrum beta lactamase (ESBL) producing Escherichia coli Current Visit: Yes Status: Acute Code(s): N39.0 - URINARY TRACT INFECTION, SITE NOT SPECIFIED; B96.29 - OTH ESCHERICHIA COLI THE CAUSE OF DISEASES CLASSD ELSWHR; Z16.12 - EXTENDED SPECTRUM BETA LACTAMASE (ESBL) RESISTANCE SNOMED Code(s): 282431209 (2) Leukocytosis Current Visit: Yes Status: Acute Code(s): D72.829 - ELEVATED WHITE BLOOD CELL COUNT, UNSPECIFIED SNOMED Code(s): 057726933 Plan: 1patient presented to hospital with confusion mental status changes this patient did have elevated white count positive UA likely indicating symptomatic urinary tract infection with urine culture no finalized with evidence of ESBL E. coli likely due to infection did have ultrasound of the kidney bladder he did not mention any obstructive uropathy 2-patient also have significant normality on MRI concerning for embolic phenomenon echocardiogram did not show any vegetation 3-we will obtain blood cultures and check inflammatory markers 4-patient benefit from [place] to make sure no evidence of any valvular vegetation especially if the blood cultures came back positive 5-for now we will treat the patient with meropenem 1 g every 8 hours while waiting for the workup to be completed. We will follow on clinical condition and cultures to further adjust medication if needed Thank you for this consultation we will follow the patient along with you Dictation was produced using [employer] dictation software. please excuse any grammatical, word or spelling errors. Time with Patient: Greater than 30
[2025-05-05 05:47] LABS: Glucose,Whole Blood 117 mg/dL (70-110)
[2025-05-05 08:06] LABS: Basophils # (A) 0.03 10*3/uL (0.00-0.10); Basophils % (A) 0.5 %; Eosinophils # (A) 0.21 10*3/uL (0.04-0.35); Eosinophils % (A) 3.4 %; HCT 47.0 % (39.6-50.0); HGB 16.7 g/dL (13.0-17.0); Immature Platelet Fraction 5.4 % (1.1-6.1); Lymphocytes # (A) 1.22 10*3/uL (0.90-5.00); Lymphocytes % (A) 19.5 %; MCH 31.2 pg (27.0-32.0); MCHC 35.5 g/dL (32.0-37.0); MCV 87.9 fL (80.0-97.0); Monocytes # (A) 0.51 10*3/uL (0.20-1.00); Monocytes % (A) 8.1 %; Neutrophils # (A) 4.27 10*3/uL (1.80-7.70); Neutrophils % (A) 68.2 %; Platelet Count 130 10*3/uL (140-440); RBC 5.35 10*6/uL (4.40-5.60); RDW 12.9 % (11.5-14.5); WBC 6.26 10*3/uL (4.50-10.00)
[2025-05-05 08:27] LABS: ALT 16 U/L (4-49); AST 25 U/L (17-59); African American GFR (CKD) >90 (>60 ml/min/1.73 sqM); Albumin 3.5 g/dL (3.5-5.0); Alkaline Phosphatase 118 U/L (38-126); Anion Gap 9 mmol/L; Blood Urea Nitrogen 10 mg/dL (9-20); Calcium 9.0 mg/dL (8.4-10.2); Carbon Dioxide 26 mmol/L (22-30); Chloride 99 mmol/L (98-107); Glucose 126 mg/dL (74-99); Non-African American GFR(CKD) >90 (>60 ml/min/1.73 sqM); Potassium 4.1 mmol/L (3.5-5.1); Sodium 134 mmol/L (137-145); Total Protein 6.6 g/dL (6.3-8.2)
--- NOTE | 2025-05-05 08:50 | P.PN ---
Subjective Progress Note Date: 05/05/25 History of present illness: This is a 54-year-old male patient previously seen by Dr. Mora with last of fice visit on 08/31/2020. He has a past medical history of permanent atrial fibrillation, hyperlipidemia, hypertension, diabetes mellitus type 2, tobacco use, obstructive sleep apnea and abnormal nuclear stress test. At the time of that office visit, it was recommended for cardiac catheterization which he underwent in August 2020 but had no further follow-up in the office. We have been asked to evaluate the patient for A-fib with RVR. Patient presented to the hospital due to mental status changes that have been intermittent for the past week. Patient was hospitalized on 04/23 for the same and signed out AMA. Patient denies chest pain or chest pressure. No shortness of breath. No ligh theadedness or dizziness. Patient was found to be in atrial fibrillation with RVR was started on Cardizem drip. Patient is currently rate controlled. Blood pressure 130/94. Patient is seen today in the emergency center waiting for a bed on the cardiac stepdown unit. -EKG: Atrial fibrillation 89 bpm -Chest x-ray: No acute process. -CT brain: No acute bleed or mass effect. Moderate generalized atrophy and chronic ischemic white matter changes. MRI brain: Scattered areas of restricted diffusion in multiple vascular territories correlate to embolic phenomenon. Additional scattered remote i njuries seen. Extensive confluent nonspecific white matter changes likely secondary to small vessel ischemic disease. -Laboratory studies: Troponin 0.084, 0.586, 1.01. WBC initially 12.3 now 9.4, h emoglobin 16.5, sodium 134, potassium 2.9, BUN 27 creatinine initially 2.02 now 1.67. Urinalysis positive for infection. Drug screen positive for opiates, benzodiazepines, marijuana. Serum alcohol less than 10. -Home cardiac medications: Eliquis 5 mg twice daily, Lopressor 50 mg twice daily. -Cardiac catheterization 09/09/2020 revealed mild CAD in the distal main, LAD and RCA 05/01/2025 Patient seen and examined in the emergency center, he is still waiting for bed on the cardiac stepdown unit. Patient denies chest pain no shortness of breath. He complains of feeling cold. Echocardiogram is pending. Patient remains in atrial fibrillation with controlled ventricular rate. Yesterday Lopressor was increased to 75 mg twice daily. Physical examination: Gen: This is a 54-year-old male in no acute distress. VS: reviewed HEENT: Head is atraumatic, normocephalic. Pupils equal, round. Sclerae is anicteric. NECK: Supple. No JVD. LUNGS: Clear to auscultation. No wheezes or rhonchi. No intercostal retractions. HEART: Regular rate and rhythm. No murmur. ABDOMEN: Soft No tenderness. EXTREMITIES: No pedal edema. No calf tenderness. NEUROLOGICAL: Patient is awake, alert. Assessment: # Permanent atrial fibrillation with RVR, currently rate controlled # Extensive confluent nonspecific white matter changes with small vessel ischemic disease on brain MRI # Scattered areas of restricted diffusion in multiple vascular territory on brain MRI #Metabolic encephalopathy # E. coli UTI # Dyslipidemia # Hypertension # Diabetes mellitus type 2, A1c 5.0 # Tobacco use # Obstructive sleep apnea # Known abnormal nuclear stress test, follow-up heart cath mild nonobstructive CAD Plan: Continue metoprolol 75 twice daily It is unclear if it is a noncompliance to Eliquis, smoking and not taking statins, along with elevated blood pressure that is the reason for extensive white matter small vessel disease, and scattered areas of restricted diffusion diffusion. He also has thrombocytopenia, A1c is only 5.0, TSH is normal I will check his lipid panel, start Lipitor 40 mg, aspirin 81 mg and continue Eliquis for anticoagulation. If neurologist feels like changing anticoagulation to Xarelto, I am okay with that. Recommend outpatient follow-up for rhythm control evaluation, and further checking compliance to smoking cessation, blood pressure control and anticoagulation regimen. Cardiology team will sign off Objective - Vital Signs Vital signs: Vital Signs Temp 97.5 F L 05/05/25 03:54 Pulse 90 05/05/25 03:54 Resp 16 05/05/25 03:54 BP 143/95 05/05/25 03:54 Pulse Ox 96 05/05/25 03:54 FiO2 Intake & Output 05/04/25 05/05/25 05/05/25 18:59 06:59 18:59 Intake Total 600 160 Output Total 200 1000 Balance 400 -1000 160 Weight 139 kg Intake: Oral 600 160 Output: Urine 200 1000 Other: Voiding Method Diaper Diaper # Voids 1 - Labs CBC & Chem 7: 05/05/25 07:47 05/05/25 07:47 Labs: Abnormal Lab Results - Last 24 Hours (Table) 05/04/25 05/05/25 05/05/25 Range/Units 19:58 05:46 07:47 Plt Count 130 L (140-440) 10*3/uL Sodium (137-145) mmol/L Creatinine (0.66-1.25) mg/dL Glucose (74-99) mg/dL POC Glucose (mg/dL) 151 H 117 H (70-110) mg/dL 05/05/25 Range/Units 07:47 Plt Count (140-440) 10*3/uL Sodium 134 L (137-145) mmol/L Creatinine 0.62 L (0.66-1.25) mg/dL Glucose 126 H (74-99) mg/dL POC Glucose (mg/dL) (70-110) mg/dL
[2025-05-05] MEDS: ASPIRIN 81 MG PO SCH (09:47)
[2025-05-05 11:44] LABS: Glucose,Whole Blood 106 mg/dL (70-110)
--- NOTE | 2025-05-05 13:53 | P.PN ---
Subjective Progress Note Date: 05/03/25 History of present illness; patient 54-year-old gentleman with past medical history significant for A-fib, COPD who presented the ER for confusion. Patient was apparently in the ER a week ago with similar symptoms at which time patient had a fall and came in for confusion. Patient had a CT scan of the head at times was negative for acute intracranial process, patient was advised to stay in the hospital for neurology evaluation but patient left AGAINST MEDICAL ADVICE. Patient apparently was doing well till yesterday when noted the patient was very weak and confused, patient hard time getting out of the chair and was not able to make any sense of what he was saying. There was no obvious facial droop. There was no seizure-like activity. There was no weakness of any extremity. Because of this increasing confusion and weakness patient was brought to the ER Initial lab work done in the ER showed WBC 12.38, hemoglobin 17.2, platelet count 192, sodium 134, potassium 3.3, BUN 22, creatinine 2.02 glucose 107 troponin 0.084 UA positive for large amount of leukocyte Estrace, urine WBC 93, Urine toxicology positive for opioids, benzos, marijuana EKG done in the ER showed heart rate of116, irregular rate and rhythm, no ST segment elevation or depression seen, no T-wave inversions seen. Chest x-ray done in the ER no evidence for acute pulmonary process CT head done showed no acute intracranial process Patient admitted to internal medicine service 05/01/25 Patient seen at bedside, he is confused, he is a poor historian. He reports feeling very hot and weak for a couple days, he feels dizzy and was having trouble getting up. He was not able to provide details otherwise. Spoke to the on the phone she says he is normally very sharp, he is not on any medication out of the normal. She says that he usually drinks a lot of fluids but he has not been wanting to eat or drink for the last few days. He is also on Wegovy and has a decreased apatite and now worse than before. 05/02/25 Patient seen at bedside, he is up and talking today able to give a clearer history. He reports feeling better today he was feeling weaker now starting to get his strength and mentation back today. He reports that he was picking up an [employer] package when he started to feel weak and doesnt remember much after that. He reports his PCP was perscribing wegovy for diabetes and recently discontinued it approximately 2 weeks ago and has not been eating well. He was able to report what he does for work, his medical history, conversations with his . 05/03/2025: Pt seen at bedside, no significant overnight events. States he's feeling well, no complaints and concerns at this time. 05/04/2025: Pt seen at bedside, still incoherent, he denies complaints. 05/05/2025: Pt seen at bedside, still waxing and wayning cognition, hes been seen by cardiology and neurology. Planning DC to SNF for further recovery PHYSICAL EXAMINATION: GENERAL: The patient is still altered, is aware of self, believes the year is 2025, alternates between believing he is in [place] [facility]: Pupils are round and equally reacting to light. EOMI. No scleral icterus. No conjunctival pallor. Normocephalic, atraumatic. No pharyngeal erythema. No thyromegaly. CARDIOVASCULAR: S1 and S2 present. No murmurs, rubs, or gallops. PULMONARY: Chest is clear to auscultation, no wheezing or crackles. ABDOMEN: Soft, nontender, nondistended, normoactive bowel sounds. No palpable organomegaly. MUSCULOSKELETAL: No joint swelling or deformity. EXTREMITIES: No cyanosis, clubbing, or pedal edema. NEUROLOGICAL: Gross neurological examination did not reveal any focal deficits. SKIN: No rashes. Labs: WBC 5.32, hemoglobin 16.5, platelets 129, sodium 134, potassium 2.7, chloride 92, bicarb 33, and magnesium 1.3, urine random creatinine 198.2, and urine random sodium 64 Imaging: EEG showed background slowing suggestive of mild encephalopathy. Echo showed EF 50%, RVSP 27, no MR, no TR, no pericardial effusion. Assessment AMS Acute metabolic encephalopathy UTI A-fib with RVR [place] Hyponatremia Hypokalemia Elevated troponin History of chronic atrial fibrillation History of COPD Plan: #AMS potentially secondary to UTI versus polypharmacy versus hypoglycemia -MRI shows restricted diffusion in multiple vascular territories consistent with emboli - Echo results stated above, cardiology has signed off at this point recommended continue home cardiac medications increasing Lopressor to 75 mg twice daily and to follow-up with Dr. Mora in 1 to 2 weeks outpatient - Decreased dose baclofen - Continue telemetry monitoring - Fall precautions and neurochecks - Continue IV fluids - PT OT consulted - Continue Eliquis and Lopressor #UTI from E. coli ESBL - meropenem 500 mg 3 times daily Day 2/ - blood cultures #Hypokalemia: #Hypomagnesemia - Gave 80 mill equivalents potassium chloride - Recheck potassium in the a.m. - Replace magnesium per protocol DVT prophylaxis w/ eliquis GI prophylaxis w/ protonix Full Code Objective - Vital Signs Vital signs: Vital Signs Temp 97.5 F L 05/05/25 03:54 Pulse 90 05/05/25 03:54 Resp 16 05/05/25 03:54 BP 143/95 05/05/25 03:54 Pulse Ox 96 05/05/25 03:54 FiO2 Intake & Output 05/04/25 05/05/25 05/05/25 18:59 06:59 18:59 Intake Total 600 Output Total 200 1000 Balance 400 -1000 Weight 139 kg Intake: Oral 600 Output: Urine 200 1000 Other: Voiding Method Diaper Diaper # Voids 1 - Labs CBC & Chem 7: 05/05/25 07:47 05/05/25 07:47 Labs: Abnormal Lab Results - Last 24 Hours (Table) 05/04/25 05/04/25 05/05/25 Range/Units 06:13 19:58 05:46 Sodium 136 L (137-145) mmol/L Potassium 3.2 L (3.5-5.1) mmol/L Chloride 94 L (98-107) mmol/L Carbon Dioxide 32 H (22-30) mmol/L POC Glucose (mg/dL) 151 H 117 H (70-110) mg/dL
[2025-05-05 14:13] VITALS: BMI 41.5
--- NOTE | 2025-05-05 16:49 | P.PN ---
Subjective Progress Note Date: 05/05/25 Principal diagnosis: Patient seen and examined at bedside today. Patient's mentation is still altered. at bedside. Vital signs are stable. Sodium 134 Urine culture is growing ESBL Brain MRI is showing scattered areas of restricted diffusion in multiple vascular territories correlate for embolic phenomenon,additional scattered remote injuries, extensive confluent nonspecific white matter changes likely secondary to small vessel ischemic disease EEG showed background slowing suggestive of mild encephalopathy, no focal slowing/epileptiform discharge/seizure on the EEG, abnormal routine EEG during awake state Patient was seen by myself personally. Patient's was present at the bedside. His speech continues to be very slurred. Overall they believe that he is getting better. Objective - Vital Signs Vital signs: Vital Signs Temp 97.5 F L 05/05/25 03:54 Pulse 90 05/05/25 03:54 Resp 16 05/05/25 03:54 BP 143/95 05/05/25 03:54 Pulse Ox 96 05/05/25 03:54 FiO2 Intake & Output 05/04/25 05/05/25 05/05/25 18:59 06:59 18:59 Intake Total 600 160 Output Total 200 1000 Balance 400 -1000 160 Weight 139 kg Intake: Oral 600 160 Output: Urine 200 1000 Other: Voiding Method Diaper Diaper # Voids 1 - Exam General: no distress, lying in bed. Neuro: alert and oriented to person only. Patient able to name objects. He was able to repeat. Extraocular movements intact no nystagmus no facial weakness. Face is symmetric No facial weakness. Has mild dysarthria. Motor: The strength is 5- 5 in all 4 extremities Deep tendon reflexes are symmetric 1 at the biceps, brachioradialis, knees and plantars indeterminate Sensory to touch is equal Cerebellar function showed no ataxia for kdhcld-sh-eosu testing and teta-vu-tflh testing, no dysdiachokinesia - Labs CBC & Chem 7: 05/05/25 07:47 05/05/25 07:47 Labs: Abnormal Lab Results - Last 24 Hours (Table) 05/04/25 05/05/25 05/05/25 Range/Units 19:58 05:46 07:47 Plt Count 130 L (140-440) 10*3/uL Sodium (137-145) mmol/L Creatinine (0.66-1.25) mg/dL Glucose (74-99) mg/dL POC Glucose (mg/dL) 151 H 117 H (70-110) mg/dL 05/05/25 Range/Units 07:47 Plt Count (140-440) 10*3/uL Sodium 134 L (137-145) mmol/L Creatinine 0.62 L (0.66-1.25) mg/dL Glucose 126 H (74-99) mg/dL POC Glucose (mg/dL) (70-110) mg/dL Assessment and Plan Assessment: Altered mental status, toxic metabolic encephalopathy Acute ischemic stroke, multifocal involving bilateral hemispheric region, likely cardioembolic. Acute kidney injury Substance abuse Urinary tract infection A-fib with RVR Hypokalemia Elevated troponin Plan: Brain CT shows no acute bleed or mass effect, moderate generalized atrophy and chronic ischemic white matter changes, probable remote lacunar infarction left basal area and left thalamus Brain MRI is showing scattered areas of restricted diffusion in multiple vascular territories correlate for embolic phenomenon,additional scattered remote injuries, extensive confluent nonspecific white matter changes likely sec ondary to small vessel ischemic disease EEG showed background slowing suggestive of mild encephalopathy, no focal slowing/epileptiform discharge/seizure on the EEG, abnormal routine EEG during awake state Echocardiogram is showing LVEF 50%, RVSP 27, no MR/TR/pericardial effusion UA shows moderate blood, large leukocyte esterase, many bacteria Urine culture is growing ESBL Urine toxicology positive for opiates, benzodiazepines, marijuana TSH 0.807, vitamin B12 694, ammonia < 9, A1c 5.0 Currently on Meropenem 1gm IVPB Q8HR DVT prophylaxis: Eliquis 5 mg p.o. twice daily Dictation was produced using [employer] dictation software. please excuse any grammatical, word or spelling errors. Jose Angel Desai MD PGY-2 IM I saw the patient myself personally, spoke to the and agree with the plan as above. Recommend cardiology follow-up for transesophageal echocardiogram to evaluate for cardioembolic source. Patient's mentions that he was taking Eliquis 5 mg twice a day very regula rly without missing any dose. Exact cause of strokes remains uncertain. Need further cardiac evaluation. We will discuss with cardiology for possible MODESTO. Discussed with patient's in detail. William Lazar MD
[2025-05-05 17:07] LABS: Glucose,Whole Blood 90 mg/dL (70-110)
[2025-05-05 20:07] LABS: Glucose,Whole Blood 138 mg/dL (70-110)
[2025-05-05] MEDS: ATORVASTATIN 40 MG TAB PO SCH (20:21)
[2025-05-06 06:00] LABS: Glucose,Whole Blood 82 mg/dL (70-110)
[2025-05-06 08:18] LABS: Basophils # (A) 0.03 10*3/uL (0.00-0.10); Basophils % (A) 0.6 %; Eosinophils # (A) 0.18 10*3/uL (0.04-0.35); Eosinophils % (A) 3.3 %; HCT 47.3 % (39.6-50.0); HGB 15.9 g/dL (13.0-17.0); Immature Platelet Fraction 4.9 % (1.1-6.1); Lymphocytes # (A) 1.00 10*3/uL (0.90-5.00); Lymphocytes % (A) 18.5 %; MCH 30.5 pg (27.0-32.0); MCHC 33.6 g/dL (32.0-37.0); MCV 90.6 fL (80.0-97.0); Monocytes # (A) 0.45 10*3/uL (0.20-1.00); Monocytes % (A) 8.3 %; Neutrophils # (A) 3.72 10*3/uL (1.80-7.70); Neutrophils % (A) 68.9 %; Platelet Count 120 10*3/uL (140-440); RBC 5.22 10*6/uL (4.40-5.60); RDW 13.2 % (11.5-14.5); WBC 5.40 10*3/uL (4.50-10.00)
[2025-05-06] MEDS ORDERED: fentaNYL (PF) 50 MCG/ML 2 ML AMP IVP PRN (08:22)
[2025-05-06] MEDS ORDERED: BENZOCAINE SPRAY 1 EACH MM PRN (08:22)
[2025-05-06] MEDS ORDERED: MIDAZOLAM 2 MG/2 ML VIAL IV PRN (08:22)
[2025-05-06 08:40] LABS: ALT 15 U/L (4-49); AST 28 U/L (17-59); African American GFR (CKD) >90 (>60 ml/min/1.73 sqM); Albumin 3.4 g/dL (3.5-5.0); Alkaline Phosphatase 99 U/L (38-126); Anion Gap 7 mmol/L; Blood Urea Nitrogen 9 mg/dL (9-20); Calcium 8.9 mg/dL (8.4-10.2); Carbon Dioxide 27 mmol/L (22-30); Chloride 100 mmol/L (98-107); Glucose 82 mg/dL (74-99); Non-African American GFR(CKD) >90 (>60 ml/min/1.73 sqM); Potassium 4.1 mmol/L (3.5-5.1); Sodium 134 mmol/L (137-145); Total Protein 6.5 g/dL (6.3-8.2)
--- NOTE | 2025-05-06 09:16 | P.PN ---
Subjective Progress Note Date: 05/06/25 Principal diagnosis: Patient seen and examined at bedside today. Patient's mentions that he was taking Eliquis 5 mg twice a day very regularly without missing any dose. Exact cause of strokes remains uncertain. Patient underwent MODESTO today. Patient's was also present by the bedside. Vitals are within normal limits. Sodium is 134 Blood culture shows no growth at 24 hours Objective - Vital Signs Vital signs: Vital Signs Temp 97.6 F 05/06/25 08:00 Pulse 75 05/06/25 08:04 Resp 18 05/06/25 08:00 BP 139/85 05/06/25 08:00 Pulse Ox 96 05/06/25 08:00 FiO2 Intake & Output 05/05/25 05/06/25 05/06/25 18:59 06:59 18:59 Intake Total 900 Balance 900 Weight 139 kg 135.5 kg Intake: Intake, IV Titration 100 Amount Meropenem 1 gm In Sodium 100 Chloride 0.9% 100 ml @ 33 .3 mls/hr IVPB Q8H [facility] Rx #:[id number] Oral 800 Other: Voiding Method Diaper Diaper # Voids 2 2 - Exam General: no distress, lying in bed. Neuro: alert and oriented to person only. Patient able to name objects. He was able to repeat. Extraocular movements intact no nystagmus no facial weakness. Face is symmetric No facial weakness. Has mild dysarthria. Motor: The strength is 5- 5 in all 4 extremities Deep tendon reflexes are symmetric 1 at the biceps, brachioradialis, knees and plantars indeterminate Sensory to touch is equal Cerebellar function showed no ataxia for [id number]-is-xbwp testing and lyvw-fh-xsgw testing, no dysdiachokinesia - Labs CBC & Chem 7: 05/06/25 08:02 05/06/25 08:02 Labs: Abnormal Lab Results - Last 24 Hours (Table) 05/05/25 05/06/25 05/06/25 Range/Units 20:06 08:02 08:02 Plt Count 120 L (140-440) 10*3/uL Sodium 134 L (137-145) mmol/L Creatinine 0.62 L (0.66-1.25) mg/dL POC Glucose (mg/dL) 138 H (70-110) mg/dL Albumin 3.4 L (3.5-5.0) g/dL Microbiology - Last 24 Hours (Table) 05/04/25 14:46 Blood Culture - Preliminary Blood Assessment and Plan Assessment: Acute ischemic strokes, multifocal involving bilateral hemispheric region, likely cardioembolic Altered mental status, toxic metabolic encephalopathy Acute kidney injury Substance abuse Urinary tract infection A-fib with RVR Hypokalemia Elevated troponin Plan: Brain CT shows no acute bleed or mass effect, moderate generalized atrophy and chronic ischemic white matter changes, probable remote lacunar infarction left basal area and left thalamus Brain MRI is showing scattered areas of restricted diffusion in multiple vascular territories correlate for embolic phenomenon,additional scattered remote injuries, extensive confluent nonspecific white matter changes likely secondary to small vessel ischemic disease. I personally reviewed MRI, agree with the findings, also reviewed with patient's in detail. EEG showed background slowing suggestive of mild encephalopathy, no focal slowing/epileptiform discharge/seizure on the EEG, abnormal routine EEG during awake state Echocardiogram is showing LVEF 50%, RVSP 27, no MR/TR/pericardial effusion UA shows moderate blood, large leukocyte esterase, many bacteria Urine culture is growing ESBL Urine toxicology positive for opiates, benzodiazepines, marijuana TSH 0.807, vitamin B12 694, ammonia < 9, A1c 5.0 Currently on Meropenem 1gm IVPB Q8HR MODESTO today showed Overall findings does not explain cardiogenic embolic phenomena of CVA at this time. Normal global LV size and systolic function. Mild left atrial dilatation. Trileaflet aortic valve with mild sclerosis. Mild mitral regurgitation with mild annular calcification. No evidence of lrrmb-vq-cluk intracardiac shunting on bubble study. No evidence of ASD or PFO on color Doppler. Thrombus visualized in left atrial appendage or left atrium DVT prophylaxis: Eliquis 5 mg p.o. twice daily Patient's strokes are of unclear etiology. Patient was on Eliquis 5 mg twice daily, compliant with medication. Now aspirin 81 mg daily also has been added to regimen. If he has any more strokes, would recommend switching to warfarin or other anticoagulant. Discussed with Dr. Lopez in detail. Also patient has some cognitive decline since the strokes. Patient's was recommended to follow-up with neurologist outpatient. If continues to have cognitive decline, then would recommend starting cognitive enhancing medication. Dictation was produced using [employer] software. please excuse any grammatical, word or spelling errors. Jose Angel Desai MD PGY-2 IM I was present for the shrestha and critical components of this encounter and I agree with the assessment and plan as documented in modified by myself as above. William Lazar MD
[2025-05-06] MEDS: BENZOCAINE SPRAY 1 EACH MM ONE (10:44)
[2025-05-06] MEDS: MIDAZOLAM 2 MG/2 ML VIAL IVP ONE ×2 (10:47→10:52)
[2025-05-06] MEDS: fentaNYL (PF) 50 MCG/ML 2 ML AMP IVP ONE ×2 (10:47→10:52)
[2025-05-06 11:25] LABS: Glucose,Whole Blood 79 mg/dL (70-110)
--- NOTE | 2025-05-06 13:03 | P.PN ---
Subjective Progress Note Date: 05/03/25 History of present illness; patient 54-year-old gentleman with past medical history significant for A-fib, COPD who presented the ER for confusion. Patient was apparently in the ER a week ago with similar symptoms at which time patient had a fall and came in for confusion. Patient had a CT scan of the head at times was negative for acute intracranial process, patient was advised to stay i the hospital for neurology evaluation but patient left AGAINST MEDICAL ADVICE. Patient apparently was doing well till yesterday when noted the patient was very weak and confused, patient hard time getting out of the chair and was not able to make any sense of what he was saying. There was no obvious facial droop. There was no seizure-like activity. There was no weakness of any extremity. Because of this increasing confusion and weakness patient was brought to the ER Initial lab work done in the ER showed WBC 12.38, hemoglobin 17.2, platelet count 192, sodium 134, potassium 3.3, BUN 22, creatinine 2.02 glucose 107 troponin 0.084 UA positive for large amount of leukocyte Estrace, urine WBC 93, Urine toxicology positive for opioids, benzos, marijuana EKG done in the ER showed heart rate of116, irregular rate and rhythm, no ST segment elevation or depression seen, no T-wave inversions seen. Chest x-ray done in the ER no evidence for acute pulmonary process CT head done showed no acute intracranial process Patient admitted to internal medicine service 05/01/25 Patient seen at bedside, he is confused, he is a poor historian. He reports feeling very hot and weak for a couple days, he feels dizzy and was having trouble getting up. He was not able to provide details otherwise. Spoke to the on the phone she says he is normally very sharp, he is not on any medication out of the normal. She says that he usually drinks a lot of fluids but he has not been wanting to eat or drink for the last few days. He is also on Wegovy and has a decreased apatite and now worse than before. 05/02/25 Patient seen at bedside, he is up and talking today able to give a clearer history. He reports feeling better today he was feeling weaker now starting to get his strength and mentation back today. He reports that he was picking up an [employer] package when he started to feel weak and doesnt remember much after that. He reports his PCP was perscribing wegovy for diabetes and recently discontinued it approximately 2 weeks ago and has not been eating well. He was able to report what he does for work, his medical history, conversations with his . 05/03/2025: Pt seen at bedside, no significant overnight events. States he's feeling well, no complaints and concerns at this time. 05/04/2025: Pt seen at bedside, still incoherent, he denies complaints. 05/05/2025: Pt seen at bedside, still waxing and wayning cognition, hes been seen by cardiology and neurology. Planning DC to SNF for further recovery 05/05/2025: pt seen at bedside, he remains confused, unable to answer questions. Neurology agrees with assessment and plan. Diagnosis and plan discussed with over the phone. PHYSICAL EXAMINATION: GENERAL: The patient is still altered, is aware of self, believes the year is 2025, alternates between believing he is [facility] [place] [facility] Pupils are round and equally reacting to light. EOMI. No scleral icterus. No conjunctival pallor. Normocephalic, atraumatic. No pharyngeal erythema. No thyromegaly. CARDIOVASCULAR: S1 and S2 present. No murmurs, rubs, or gallops. PULMONARY: Chest is clear to auscultation, no wheezing or crackles. ABDOMEN: Soft, nontender, nondistended, normoactive bowel sounds. No palpable organomegaly. MUSCULOSKELETAL: No joint swelling or deformity. EXTREMITIES: No cyanosis, clubbing, or pedal edema. NEUROLOGICAL: Gross neurological examination did not reveal any focal deficits. SKIN: No rashes. Labs: WBC 5.32, hemoglobin 16.5, platelets 129, sodium 134, potassium 2.7, chloride 92, bicarb 33, and magnesium 1.3, urine random creatinine 198.2, and urine random sodium 64 Imaging: EEG showed background slowing suggestive of mild encephalopathy. Echo showed EF 50%, RVSP 27, no MR, no TR, no pericardial effusion. Assessment AMS Acute metabolic encephalopathy UTI A-fib with RVR ADELFO Hyponatremia Hypokalemia Elevated troponin History of chronic atrial fibrillation History of COPD Plan: #AMS potentially secondary to UTI versus polypharmacy versus hypoglycemia -MRI shows restricted diffusion in multiple vascular territories consistent with emboli - Echo results stated above, cardiology has signed off at this point recommended continue home cardiac medications increasing Lopressor to 75 mg twice daily and to follow-up with Dr. Mora in 1 to 2 weeks outpatient - Decreased dose baclofen - Continue telemetry monitoring - Fall precautions and neurochecks - Continue IV fluids - PT OT consulted - Continue Eliquis and Lopressor #UTI from E. coli ESBL - meropenem 500 mg 3 times daily Day 12/30 - blood cultures #Hypokalemia: #Hypomagnesemia - Gave 80 mill equivalents potassium chloride - Recheck potassium in the a.m. - Replace magnesium per protocol DVT prophylaxis w/ eliquis GI prophylaxis w/ protonix Full Code DC to SNF once abx course is completed tonight Objective - Vital Signs Vital signs: Vital Signs Temp 97.6 F 05/06/25 08:00 Pulse 75 05/06/25 08:04 Resp 18 05/06/25 08:00 BP 139/85 05/06/25 08:00 Pulse Ox 96 05/06/25 08:00 FiO2 Intake & Output 05/05/25 05/06/25 05/06/25 18:59 06:59 18:59 Intake Total 900 Balance 900 Weight 139 kg 135.5 kg Intake: Intake, IV Titration 100 Amount Meropenem 1 gm In Sodium 100 Chloride 0.9% 100 ml @ 33 .3 mls/hr IVPB Q8H [facility] Rx #:[id number] Oral 800 Other: Voiding Method Diaper Diaper # Voids 2 2 - Labs CBC & Chem 7: 05/06/25 08:02 05/06/25 08:02 Labs: Abnormal Lab Results - Last 24 Hours (Table) 05/05/25 05/06/25 05/06/25 Range/Units 20:06 08:02 08:02 Plt Count 120 L (140-440) 10*3/uL Sodium 134 L (137-145) mmol/L Creatinine 0.62 L (0.66-1.25) mg/dL POC Glucose (mg/dL) 138 H (70-110) mg/dL Albumin 3.4 L (3.5-5.0) g/dL Microbiology - Last 24 Hours (Table) 05/04/25 14:46 Blood Culture - Preliminary Blood
--- NOTE | 2025-05-06 14:12 | P.TEE ---
Date of Procedure: 05/06/25 Description of Procedure(s): Procedure performed: 1. Transesophageal Echocardiogram with color flow doppler, pulsed wave doppler and continuous wave doppler, (CPT 44819, +[id number], +[id number]) 2. Moderate conscious sedation. Sedation time [20] mins. (CPT 17551) 3. Bubble Study Indication: Embolic CVA Consent: I have discussed the risks, benefits and alternative therapies for the above-mentioned procedure. The patient has indicated understanding and acceptance of the risks of the procedure. Signed consent was obtained and was placed in the paper chart. Procedural Steps: Timeout was performed in usual fashion. Patient's heart rate, blood pressure, oxygen saturation and ECG were monitored. Benzocaine was sprayed liberally in the back of the throat. Bite block was placed between the jaw. 2.5 mg of Versed and 75 mcg of Fentanyl were administered intravenously. After achieving appropriate moderate conscious sedation, MODESTO probe was advanced without difficulty and without any immediate complications to the esophagus. MODESTO study was performed with color flow doppler, pulsed wave doppler and continuous wave doppler. The probe was then removed. Patient tolerated the procedure well. Patient was transferred to the post procedure area in stable and satisfactory condition. Throughout the procedure patient's heart rate, blood pressure, oxygen saturation and ECG were monitored. Total sedation time [20] mins. Complications: none FINDINGS Left Atrium: Mild left atrial dilatation. No evidence of mass or thrombus seen Left Atrial Appendage: No evidence of thrombus or mass seen in MONIQUE Inter atrial septum: Intact inter-atrial septum with no evidence of atrial septal defect or patent foramen ovale. No evidence of vaewi-gq-[id number] intracardiac shunting on bubble study Left Ventricle: Normal global LV size and systolic function Right Atrium: Normal overall RA size Right Ventricle: Normal global RV size and systolic function Aortic Valve: Mild sclerosis of trileaflet aortic valve. No significant stenosis or regurgitation on color Doppler. Mitral Valve: Structurally normal, mild mitral valve regurgitation. Minimal annular thickening and calcification. Pulmonic Valve: Not well visualized. Tricuspid Valve: Structurally normal. Mild tricuspid regurgitation Ascending aorta, Aortic root and Aortic arch: Mild intimal thickening and mild calcification noticed. Descending aorta: Mild intimal thickening and mild calcification noticed. No pericardial effusion CONCLUSION: Overall findings does not explain cardiogenic embolic phenomena of CVA at this time. Normal global LV size and systolic function Mild left atrial dilatation Trileaflet aortic valve with mild sclerosis Mild mitral regurgitation with mild annular calcification No evidence of qtvth-ej-wmyu intracardiac shunting on bubble study. No evidence of ASD or PFO on color Doppler. Thrombus visualized in left atrial appendage or left atrium Zeb Lopez MD, RPVI, FACC Thank you for allowing [facility] to participate in this patient's care. Feel free to reach out in case of any followup questions.
[2025-05-06 16:31] LABS: Glucose,Whole Blood 72 mg/dL (70-110)
--- NOTE | 2025-05-06 16:50 | P.PN ---
Subjective Progress Note Date: 05/05/25 Principal diagnosis: Reason for follow-up is ESBL E. 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 coli prompting this consultation. On today's evaluation that is 05/05/2025, patient has been afebrile, patient is breathing comfortably and is currently on room air, patient denies having any chest pain and cough, patient denies nausea vomiting or diarrhea and no abdominal pain Patient white count is 6.26, creatinine 0.62 Objective - Vital Signs Vital signs: Vital Signs Temp 97.9 F 05/05/25 12:00 Pulse 70 05/05/25 12:00 Resp 16 05/05/25 12:00 BP 134/85 05/05/25 12:00 Pulse Ox 95 05/05/25 12:00 FiO2 Intake & Output 05/04/25 05/05/25 05/05/25 18:59 06:59 18:59 Intake Total 600 160 Output Total 200 1000 Balance 400 -1000 160 Weight 139 kg Intake: Oral 600 160 Output: Urine 200 1000 Other: Voiding Method Diaper Diaper Diaper # Voids 1 - Exam GENERAL DESCRIPTION: Middle-age man up in the chair in no distress RESPIRATORY SYSTEM: Unlabored breathing , decreased breath sounds at bases HEART: S1 S2 regular rate and rhythm , ABDOMEN: Soft , no tenderness EXTREMITIES: No edema feet - Labs CBC & Chem 7: 05/06/25 08:02 05/06/25 08:02 Labs: Abnormal Lab Results - Last 24 Hours (Table) 05/04/25 05/05/25 05/05/25 Range/Units 19:58 05:46 07:47 Plt Count 130 L (140-440) 10*3/uL Sodium (137-145) mmol/L Creatinine (0.66-1.25) mg/dL Glucose (74-99) mg/dL POC Glucose (mg/dL) 151 H 117 H (70-110) mg/dL 05/05/25 Range/Units 07:47 Plt Count (140-440) 10*3/uL Sodium 134 L (137-145) mmol/L Creatinine 0.62 L (0.66-1.25) mg/dL Glucose 126 H (74-99) mg/dL POC Glucose (mg/dL) (70-110) mg/dL Assessment and Plan (1) UTI due to extended-spectrum beta lactamase (ESBL) producing Escherichia coli Current Visit: Yes Status: Acute Code(s): N39.0 - URINARY TRACT INFECTION, SITE NOT SPECIFIED; B96.29 - OTH ESCHERICHIA COLI THE CAUSE OF DISEASES CLASSD ELSWHR; Z16.12 - EXTENDED SPECTRUM BETA LACTAMASE (ESBL) RESISTANCE SNOMED Code(s): 952974017 (2) Leukocytosis Current Visit: Yes Status: Acute Code(s): D72.829 - ELEVATED WHITE BLOOD CELL COUNT, UNSPECIFIED SNOMED Code(s): 680425665 Plan: 1patient presented to hospital with confusion mental status changes this patient did have elevated white count positive UA likely indicating symptomatic urinary tract infection with urine culture no finalized with evidence of ESBL E. coli likely due to infection did have ultrasound of the kidney bladder he did not mention any obstructive uropathy 2-patient also have significant normality on MRI concerning for embolic phenomenon echocardiogram did not show any vegetation 3-blood culture currently pending 4-patient benefit from MODESTO to make sure no evidence of any valvular vegetation especially if the blood cultures came back positive 5-patient is currently being treated meropenem 1 g every 8 hours while waiting for the workup to be completed. Dictation was produced using [employer] dictation software. please excuse any grammatical, word or spelling errors. Time with Patient: Less than 30
--- NOTE | 2025-05-06 16:52 | P.PN ---
Subjective Progress Note Date: 05/06/25 Principal diagnosis: Reason for follow-up is ESBL E. 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 coli prompting this consultation. On today's evaluation that is 05/06/2025, Patient is afebrile this morning patient denies having any chest pain shortness of breath or cough, the patient is currently on room air, patient denies any abdominal pain no diarrhea no nausea no vomiting. The patient was 25.40, creatinine 0.62 blood culture negative Objective - Vital Signs Vital signs: Vital Signs Temp 97.6 F 05/06/25 08:00 Pulse 75 05/06/25 08:04 Resp 18 05/06/25 08:00 BP 139/85 05/06/25 08:00 Pulse Ox 96 05/06/25 08:00 FiO2 Intake & Output 05/05/25 05/06/25 05/06/25 18:59 06:59 18:59 Intake Total 900 Balance 900 Weight 139 kg 135.5 kg Intake: Intake, IV Titration 100 Amount Meropenem 1 gm In Sodium 100 Chloride 0.9% 100 ml @ 33 .3 mls/hr IVPB Q8H [facility] Rx #:[id number] Oral 800 Other: Voiding Method Diaper Diaper # Voids 2 2 - Exam GENERAL DESCRIPTION: Middle-age man up in the chair in no distress RESPIRATORY SYSTEM: Unlabored breathing , decreased breath sounds at bases HEART: S1 S2 regular rate and rhythm , ABDOMEN: Soft , no tenderness EXTREMITIES: No edema feet - Labs CBC & Chem 7: 05/06/25 08:02 05/06/25 08:02 Labs: Abnormal Lab Results - Last 24 Hours (Table) 05/05/25 05/06/25 05/06/25 Range/Units 20:06 08:02 08:02 Plt Count 120 L (140-440) 10*3/uL Sodium 134 L (137-145) mmol/L Creatinine 0.62 L (0.66-1.25) mg/dL POC Glucose (mg/dL) 138 H (70-110) mg/dL Albumin 3.4 L (3.5-5.0) g/dL Microbiology - Last 24 Hours (Table) 05/04/25 14:46 Blood Culture - Preliminary Blood Assessment and Plan (1) UTI due to extended-spectrum beta lactamase (ESBL) producing Escherichia coli Current Visit: Yes Status: Acute Code(s): N39.0 - URINARY TRACT INFECTION, SITE NOT SPECIFIED; B96.29 - OTH ESCHERICHIA COLI THE CAUSE OF DISEASES CLASSD ELSWHR; Z16.12 - EXTENDED SPECTRUM BETA LACTAMASE (ESBL) RESISTANCE SNOMED Code(s): 891030325 (2) Leukocytosis Current Visit: Yes Status: Acute Code(s): D72.829 - ELEVATED WHITE BLOOD CELL COUNT, UNSPECIFIED SNOMED Code(s): 173835682 Plan: 1patient presented to hospital with confusion mental status changes this patient did have elevated white count positive UA likely indicating symptomatic urinary tract infection with urine culture no finalized with evidence of ESBL E. coli likely due to infection did have ultrasound of the kidney bladder he did not mention any obstructive uropathy 2-patient also have significant normality on MRI concerning for embolic phenomenon echocardiogram did not show any vegetation 3-blood culture currently pending 4-patient benefit from MODESTO to make sure no evidence of any valvular vegetation which is currently scheduled for this afternoon 5-patient is currently being treated meropenem 1 g every 8 hours which can be switched to Invanz 1 g daily for 7 days to finish course of very discussed with the admitting team Dictation was produced using [email or web address] dictation software. please excuse any grammatical, word or spelling errors.
[2025-05-06 20:04] LABS: Glucose,Whole Blood 85 mg/dL (70-110)
[2025-05-07 06:04] LABS: Glucose,Whole Blood 76 mg/dL (70-110)
[2025-05-07 11:51] LABS: Glucose,Whole Blood 75 mg/dL (70-110)
--- NOTE | 2025-05-07 15:18 | P.DS ---
Providers Date of admission: 04/29/25 16:47 Attending physician: Dagoberto Dean MD Consults: 04/29/25 16:45 Consult Physician Urgent Consulting Provider: Luke Llanes Consult Reason/Comments: a fib w rvr Do you want consulting provider notified?: Yes Consult Physician Urgent Consulting Provider: Roberto Branham Consult Reason/Comments: Embolic Changes on MRI Do you want consulting provider notified?: Yes 05/04/25 11:33 Consult Physician Urgent Consulting Provider: Sierra Mujica Consult Reason/Comments: UTI Do you want consulting provider notified?: Yes 05/04/25 11:40 Consult Physician Urgent Consulting Provider: Lyubov Mora Consult Reason/Comments: Embolic changes on MRI Do you want consulting provider notified?: Yes Primary care physician: Niki Antoine Hospital Course: Discharge Diagnosis: AMS Stroke UTI A-fib with RVR ADELFO Hyponatremia Hypokalemia Elevated troponin History of chronic atrial fibrillation History of COPD Hospital Course: History of present illness; patient 54-year-old gentleman with past medical history significant for A-fib, COPD who presented the ER for confusion. Patient was apparently in the ER a week ago with similar symptoms at which time patient had a fall and came in for confusion. Patient had a CT scan of the head at times was negative for acute intracranial process, patient was advised to stay in the hospital for neurology evaluation but patient left AGAINST MEDICAL ADVICE. Patient apparently was doing well till yesterday when noted the patient was very weak and confused, patient hard time getting out of the chair and was not able to make any sense of what he was saying. There was no obvious facial droop. There was no seizure-like activity. There was no weakness of any extremity. Because of this increasing confusion and weakness patient was brought to the ER Initial lab work done in the ER showed WBC 12.38, hemoglobin 17.2, platelet count 192, sodium 134, potassium 3.3, BUN 22, creatinine 2.02 glucose 107 troponin 0.084 UA positive for large amount of leukocyte Estrace, urine WBC 93, Urine toxicology positive for opioids, benzos, marijuana EKG done in the ER showed heart rate of 116, irregular rate and rhythm, no ST segment elevation or depression seen, no T-wave inversions seen. Chest x-ray done in the ER no evidence for acute pulmonary process CT head done showed no acute intracranial process Patient admitted to internal medicine service Patient was initially admitted for AMS and a fall with waxing and waning mentation with progressive decline. He was seen by cardiology, neurology, infectious disease. He recieved a CT scan of the head for initial suspicion of intracranial pathology, the CT scan showed non-specific changes without evidence of hemorrhage. On UA, a UTI was discovered and he recieved treatment for suspected symptomatic UTI. An MRI and EEG was ordered for further investigation where evidence of embolism was discovered. Cardiology was consulted for evaluation of embolic source. MODESTO was performed where no emboli, pfo, or apendage were discovered. His anti-coagulation was reoptimized. Maximal medical improvement was achieved in conjuction with neurology, cardiology, and ID. At t [place] of discharge he is hemodynamically stable. He was evaluated by PT and OT, with medical team we determined he is not fit for home and will be discharged to extended care facility. He will followup with cardiology and neurology outpatient for continued management. Pt seen and examined at bedside: Vital signs reveiwed and stable: PHYSICAL EXAMINATION: GENERAL: The patient is still altered, is aware of self, believes the year is 2025, alternates between believing he is in [place] and [place] HEENT: Pupils are round and equally reacting to light. EOMI. No scleral icterus. No conjunctival pallor. Normocephalic, atraumatic. No pharyngeal erythema. No thyromegaly. CARDIOVASCULAR: S1 and S2 present. No murmurs, rubs, or gallops. PULMONARY: Chest is clear to auscultation, no wheezing or crackles. ABDOMEN: Soft, nontender, nondistended, normoactive bowel sounds. No palpable organomegaly. MUSCULOSKELETAL: No joint swelling or deformity. EXTREMITIES: No cyanosis, clubbing, or pedal edema. NEUROLOGICAL: Gross neurological examination did not reveal any focal deficits. SKIN: No rashes. Imaging: EEG showed background slowing suggestive of mild encephalopathy. Echo showed EF 50%, RVSP 27, no MR, no TR, no pericardial effusion. A total of >30 minutes were spent preparing this complex discarge summary. Patient was discharged on 05/07 Patient Condition at Discharge: Serious Plan - Discharge Summary Discharge Rx Participant: No New Discharge Prescriptions: New Aspirin 81 mg PO DAILY tab Ertapenem [INVanz] 1 gm PO DAILY 7 Days #7 each amLODIPine [Norvasc] 2.5 mg PO DAILY 7 Days #7 tab Atorvastatin [Lipitor] 40 mg PO HS 7 Days #7 tab Continue Budesonide/Formoterol Fumarate [Symbicort 160-4.5 Mcg Inhaler] 2 puff INHALATION RT-BID HYDROcodone/APAP 5-325MG [Pattison 5-325] 1 - 2 tab PO Q6H PRN PRN Reason: Pain Pregabalin [Lyrica] 50 mg PO BID Apixaban [Eliquis] 5 mg PO BID #60 tab Metoprolol Tartrate [Lopressor] 50 mg PO BID #60 tab Loratadine [Claritin] 10 mg PO DAILY Albuterol Sulfate [Ventolin HFA] 2 puff INHALATION RT-DAILY Omeprazole 40 mg PO DAILY Fluticasone/Vilanterol [Breo Ellipta 100-25 Mcg Inhalr] 1 puff INHALATION RT- DAILY SUMAtriptan succinate [Imitrex] 100 mg PO BID PRN PRN Reason: Migraine Headache FLUoxetine HCL 40 mg PO DAILY Discontinued Semaglutide [Wegovy] 1 mg SQ SA Baclofen [Lioresal] 20 mg PO BID PRN PRN Reason: Muscle Spasm tadalafiL 20 mg PO DAILY PRN PRN Reason: E.D. Sildenafil [Revatio] 60 - 100 mg PO DAILY PRN PRN Reason: E.D. Zolpidem [Ambien] 10 mg PO HS PRN PRN Reason: Insomnia Discharge Medication List Budesonide/Formoterol Fumarate [Symbicort 160-4.5 Mcg Inhaler] 2 puff INHALATION RT-BID 04/10/20 [History] HYDROcodone/APAP 5-325MG [Pattison 5-325] 1 - 2 tab PO Q6H PRN 04/10/20 [History] Pregabalin [Lyrica] 50 mg PO BID 04/10/20 [History] Apixaban [Eliquis] 5 mg PO BID #60 tab 04/11/20 [Rx] Metoprolol Tartrate [Lopressor] 50 mg PO BID #60 tab 09/15/22 [Rx] Omeprazole 40 mg PO DAILY 09/15/22 [History] Albuterol Sulfate [Ventolin HFA] 2 puff INHALATION RT-DAILY 04/24/25 [History] FLUoxetine HCL 40 mg PO DAILY 04/24/25 [History] Fluticasone/Vilanterol [Breo Ellipta 100-25 Mcg Inhalr] 1 puff INHALATION RT- DAILY 04/24/25 [History] Loratadine [Claritin] 10 mg PO DAILY 04/24/25 [History] SUMAtriptan succinate [Imitrex] 100 mg PO BID PRN 04/24/25 [History] Aspirin 81 mg PO DAILY tab 05/07/25 [Rx] Atorvastatin [Lipitor] 40 mg PO HS 7 Days #7 tab 05/07/25 [Rx] Ertapenem [INVanz] 1 gm PO DAILY 7 Days #7 each 05/07/25 [Rx] amLODIPine [Norvasc] 2.5 mg PO DAILY 7 Days #7 tab 05/07/25 [Rx] Follow up Appointment(s)/Referral(s): Lyubov Mora MD [STAFF PHYSICIAN] - 1 Week Niki Antoine DO [Primary Care Provider] - 1-2 days
[2025-05-07 16:55] LABS: Glucose,Whole Blood 128 mg/dL (70-110)
[2025-05-07 20:14] LABS: Glucose,Whole Blood 97 mg/dL (70-110)
[2025-05-08 06:14] LABS: Glucose,Whole Blood 95 mg/dL (70-110)
--- NOTE | 2025-05-08 07:03 | P.PN ---
Subjective Progress Note Date: 05/07/25 Principal diagnosis: Reason for follow-up is ESBL E. 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 coli prompting this consultation. On today's evaluation that is 05/07/2025,the patient denies any fever or any chills, patient is breathing comfortably on room air, the patient denies chest pain shortness of breath and no significant cough, patient denies abdominal pain, no nausea vomiting or diarrhea. No new lab has been obtained today blood culture has been negative Objective - Vital Signs Vital signs: Vital Signs Temp 97.8 F 05/07/25 12:00 Pulse 74 05/07/25 12:00 Resp 14 05/07/25 12:00 BP 111/68 05/07/25 12:00 Pulse Ox 99 05/07/25 12:00 FiO2 Intake & Output 05/06/25 05/07/25 05/07/25 18:59 06:59 18:59 Intake Total 658 240 270 Output Total 799 200 300 Balance -141 40 -30 Weight 136 kg Intake: IV 30 Invasive Line 2 10 Invasive Line 3 10 Invasive Line 5 10 Oral 658 240 240 Output: Urine 450 200 300 Post Void Residual 349 Other: Voiding Method Urinal Urinal - Exam GENERAL DESCRIPTION: Middle-age man up in the chair in no distress RESPIRATORY SYSTEM: Unlabored breathing , decreased breath sounds at bases HEART: S1 S2 regular rate and rhythm , ABDOMEN: Soft , no tenderness EXTREMITIES: No edema feet - Labs CBC & Chem 7: 05/06/25 08:02 05/06/25 08:02 Labs: Microbiology - Last 24 Hours (Table) 05/04/25 14:46 Blood Culture - Preliminary Blood Assessment and Plan (1) UTI due to extended-spectrum beta lactamase (ESBL) producing Escherichia coli Current Visit: Yes Status: Acute Code(s): N39.0 - URINARY TRACT INFECTION, SITE NOT SPECIFIED; B96.29 - OTH ESCHERICHIA COLI THE CAUSE OF DISEASES CLASSD ELSWHR; Z16.12 - EXTENDED SPECTRUM BETA LACTAMASE (ESBL) RESISTANCE SNOMED Code(s): 279359155 (2) Leukocytosis Current Visit: Yes Status: Acute Code(s): D72.829 - ELEVATED WHITE BLOOD CELL COUNT, UNSPECIFIED SNOMED Code(s): 861761023 Plan: 1patient presented to hospital with confusion mental status changes this patient did have elevated white count positive UA likely indicating symptomatic urinary tract infection with urine culture no finalized with evidence of ESBL E. coli likely due to infection did have ultrasound of the kidney bladder he did not mention any obstructive uropathy 2-patient also have significant normality on MRI concerning for embolic phenome non echocardiogram did not show any vegetation 3-blood culture currently pending 4-patient did have MODESTO did not mention any PFO or ASD or vegetation 5-patient currently meropenem 1 g every 8 hours which can be switched to Invanz 1 g daily to finish a total of 7-10-day course of therapy Dictation was produced using [employer] dictation software. please excuse any grammatical, word or spelling errors. Time with Patient: Less than 30
[2025-05-08 11:44] VITALS: BP 138/90; PULSE 75; RESP 16; TEMP 97.6
[2025-05-08 11:46] LABS: Glucose,Whole Blood 87 mg/dL (70-110)
--- NOTE | 2025-05-08 15:05 | P.DS ---
Providers Date of admission: 04/29/25 16:47 Attending physician: Dagoberto Dean MD Consults: 04/29/25 16:45 Consult Physician Urgent Consulting Provider: Luke Llanes Consult Reason/Comments: a fib w rvr Do you want consulting provider notified?: Yes Consult Physician Urgent Consulting Provider: Roberto Branham Consult Reason/Comments: Embolic Changes on MRI Do you want consulting provider notified?: Yes 05/04/25 11:33 Consult Physician Urgent Consulting Provider: Sierra Mujica Consult Reason/Comments: UTI Do you want consulting provider notified?: Yes 05/04/25 11:40 Consult Physician Urgent Consulting Provider: Lyubov Mora Consult Reason/Comments: Embolic changes on MRI Do you want consulting provider notified?: Yes Primary care physician: Niki Antoine Hospital Course: Discharge Diagnosis: AMS Stroke UTI A-fib with RVR ADELFO Hyponatremia Hypokalemia Elevated troponin History of chronic atrial fibrillation History of COPD Hospital Course: History of present illness; patient 54-year-old gentleman with past medical history significant for A-fib, COPD who presented the ER for confusion. Patient was apparently in the ER a week ago with similar symptoms at which time patient had a fall and came in for confusion. Patient had a CT scan of the head at times was negative for acute intracranial process, patient was advised to stay in the hospital for neurology evaluation but patient left AGAINST MEDICAL ADVICE. Patient apparently was doing well till yesterday when noted the patient was very weak and confused, patient hard time getting out of the chair and was not able to make any sense of what he was saying. There was no obvious facial droop. There was no seizure-like activity. There was no weakness of any extremity. Because of this increasing confusion and weakness patient was brought to the ER Initial lab work done in the ER showed WBC 12.38, hemoglobin 17.2, platelet count 192, sodium 134, potassium 3.3, BUN 22, creatinine 2.02 glucose 107 troponin 0.084 UA positive for large amount of leukocyte Estrace, urine WBC 93, Urine toxicology positive for opioids, benzos, marijuana EKG done in the ER showed heart rate of 116, irregular rate and rhythm, no ST segment elevation or depression seen, no T-wave inversions seen. Chest x-ray done in the ER no evidence for acute pulmonary process CT head done showed no acute intracranial process Patient admitted to internal medicine service Patient was initially admitted for AMS and a fall with waxing and waning mentation with progressive decline. He was seen by cardiology, neurology, infectious disease. He recieved a CT scan of the head for initial suspicion of intracranial pathology, the CT scan showed non-specific changes without evidence of hemorrhage. On UA, a UTI was discovered and he recieved treatment for suspected symptomatic UTI. An MRI and EEG was ordered for further investigation where evidence of embolism was discovered. Cardiology was consulted for evaluation of embolic source. MODESTO was performed where no emboli, pfo, or apendage were discovered. His anti-coagulation was reoptimized. Maximal medical improvement was achieved in conjuction with neurology, cardiology, and ID. At t cel[place] of discharge he is hemodynamically stable. He was evaluated by PT and OT, with medical team we determined he is not fit for home and will be discharged to extended care facility. He will followup with cardiology and neurology outpatient for continued management. Pt seen and examined at bedside: Vital signs reveiwed and stable: PHYSICAL EXAMINATION: GENERAL: The patient is still altered, is aware of self, believes the year is 2025, alternates between believing he is in [place] and [place] HEENT: Pupils are round and equally reacting to light. EOMI. No scleral icterus. No conjunctival pallor. Normocephalic, atraumatic. No pharyngeal erythema. No thyromegaly. CARDIOVASCULAR: S1 and S2 present. No murmurs, rubs, or gallops. PULMONARY: Chest is clear to auscultation, no wheezing or crackles. ABDOMEN: Soft, nontender, nondistended, normoactive bowel sounds. No palpable organomegaly. MUSCULOSKELETAL: No joint swelling or deformity. EXTREMITIES: No cyanosis, clubbing, or pedal edema. NEUROLOGICAL: Gross neurological examination did not reveal any focal deficits. SKIN: No rashes. Imaging: EEG showed background slowing suggestive of mild encephalopathy. Echo showed EF 50%, RVSP 27, no MR, no TR, no pericardial effusion. A total of >30 minutes were spent preparing this complex discarge summary. Patient was discharged on 05/08 Patient Condition at Discharge: Serious Plan - Discharge Summary Discharge Rx Participant: No New Discharge Prescriptions: New Aspirin 81 mg PO DAILY tab Ertapenem [INVanz] 1 gm PO DAILY 7 Days #7 each amLODIPine [Norvasc] 2.5 mg PO DAILY 7 Days #7 tab Atorvastatin [Lipitor] 40 mg PO HS 7 Days #7 tab Continue Budesonide/Formoterol Fumarate [Symbicort 160-4.5 Mcg Inhaler] 2 puff INHALATION RT-BID Pregabalin [Lyrica] 50 mg PO BID Apixaban [Eliquis] 5 mg PO BID #60 tab Metoprolol Tartrate [Lopressor] 50 mg PO BID #60 tab Loratadine [Claritin] 10 mg PO DAILY Albuterol Sulfate [Ventolin HFA] 2 puff INHALATION RT-DAILY Omeprazole 40 mg PO DAILY Fluticasone/Vilanterol [Breo Ellipta 100-25 Mcg Inhalr] 1 puff INHALATION RT- DAILY SUMAtriptan succinate [Imitrex] 100 mg PO BID PRN PRN Reason: Migraine Headache FLUoxetine HCL 40 mg PO DAILY Changed HYDROcodone/APAP 5-325MG [[place] 5-325] 1 tab PO Q6H PRN #4 tab PRN Reason: Pain Discontinued Semaglutide [Wegovy] 1 mg SQ SA Baclofen [Lioresal] 20 mg PO BID PRN PRN Reason: Muscle Spasm tadalafiL 20 mg PO DAILY PRN PRN Reason: E.D. Sildenafil [Revatio] 60 - 100 mg PO DAILY PRN PRN Reason: E.D. Zolpidem [Ambien] 10 mg PO HS PRN PRN Reason: Insomnia Discharge Medication List Budesonide/Formoterol Fumarate [Symbicort 160-4.5 Mcg Inhaler] 2 puff INHALATION RT-BID 04/10/20 [History] Pregabalin [Lyrica] 50 mg PO BID 04/10/20 [History] Apixaban [Eliquis] 5 mg PO BID #60 tab 04/11/20 [Rx] Metoprolol Tartrate [Lopressor] 50 mg PO BID #60 tab 09/15/22 [Rx] Omeprazole 40 mg PO DAILY 09/15/22 [History] Albuterol Sulfate [Ventolin HFA] 2 puff INHALATION RT-DAILY 04/24/25 [History] FLUoxetine HCL 40 mg PO DAILY 04/24/25 [History] Fluticasone/Vilanterol [Breo Ellipta 100-25 Mcg Inhalr] 1 puff INHALATION RT- DAILY 04/24/25 [History] Loratadine [Claritin] 10 mg PO DAILY 04/24/25 [History] SUMAtriptan succinate [Imitrex] 100 mg PO BID PRN 04/24/25 [History] Aspirin 81 mg PO DAILY tab 05/07/25 [Rx] Atorvastatin [Lipitor] 40 mg PO HS 7 Days #7 tab 05/07/25 [Rx] Ertapenem [INVanz] 1 gm PO DAILY 7 Days #7 each 05/07/25 [Rx] amLODIPine [Norvasc] 2.5 mg PO DAILY 7 Days #7 tab 05/07/25 [Rx] HYDROcodone/APAP 5-325MG [[place] 5-325] 1 tab PO Q6H PRN #4 tab 05/08/25 [Rx] Follow up Appointment(s)/Referral(s): Lyubov Mora MD [STAFF PHYSICIAN] - 1 Week Niki Antoine DO [Primary Care Provider] - 1-2 days Activity/Diet/Wound Care/Special Instructions: Diet: Heart Healthy Activity: As tolerated Discharge Disposition: OTHER INSTITUTION NOT DEFINED
--- NOTE | 2025-05-09 15:04 | P.PN ---
Subjective Progress Note Date: 05/08/25 Principal diagnosis: Reason for follow-up is ESBL E. 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 coli prompting this consultation. On today's evaluation that is 05/08/2025,the patient remains to be afebrile, patient is on room air not requiring supplemental oxygen and denies any shortness of breath no chest pain or cough.Patient denies having any nausea or vomiting, no abdominal pain and no diarrhea has been reported. No new lab has been obtained today Objective - Vital Signs Vital signs: Vital Signs Temp 98.2 F 05/08/25 08:00 Pulse 80 05/08/25 08:17 Resp 15 05/08/25 08:00 BP 134/84 05/08/25 08:00 Pulse Ox 99 05/08/25 08:00 FiO2 Intake & Output 05/07/25 05/08/25 05/08/25 18:59 06:59 18:59 Intake Total 1500 60 Output Total 600 Balance 900 60 Weight 118.7 kg Intake: IV 60 60 Invasive Line 2 20 20 Invasive Line 3 20 20 Invasive Line 5 10 Invasive Line 6 10 20 Oral 1440 Output: Urine 600 Other: Voiding Method Urinal Urinal # Voids 2 1 - Exam GENERAL DESCRIPTION: Middle-age man up in the chair in no distress RESPIRATORY SYSTEM: Unlabored breathing , decreased breath sounds at bases HEART: S1 S2 regular rate and rhythm , ABDOMEN: Soft , no tenderness EXTREMITIES: No edema feet - Labs CBC & Chem 7: 05/06/25 08:02 05/06/25 08:02 Labs: Abnormal Lab Results - Last 24 Hours (Table) 05/07/25 Range/Units 16:49 POC Glucose (mg/dL) 128 H (70-110) mg/dL Microbiology - Last 24 Hours (Table) 05/04/25 14:46 Blood Culture - Preliminary Blood Assessment and Plan (1) UTI due to extended-spectrum beta lactamase (ESBL) producing Escherichia coli Status: Acute Code(s): N39.0 - URINARY TRACT INFECTION, SITE NOT SPECIFIED; B96.29 - OTH ESCHERICHIA COLI THE CAUSE OF DISEASES CLASSD ELSWHR; Z16.12 - EXTENDED SPECTRUM BETA LACTAMASE (ESBL) RESISTANCE SNOMED Code(s): 720075504 (2) Leukocytosis Status: Acute Code(s): D72.829 - ELEVATED WHITE BLOOD CELL COUNT, UNSPECIFIED SNOMED Code(s): 860093679 Plan: 1patient presented to hospital with confusion mental status changes this pat ient did have elevated white count positive UA likely indicating symptomatic urinary tract infection with urine culture no finalized with evidence of ESBL E. coli likely due to infection did have ultrasound of the kidney bladder he did not mention any obstructive uropathy 2-patient also have significant normality on MRI concerning for embolic phenomenon echocardiogram did not show any vegetation 3-blood culture currently pending 4-patient did have MODESTO did not mention any PFO or ASD or vegetation 5-patient seem to have shown improvement on meropenem to finish therapy with Invanz 1 g daily on discharge Dictation was produced using [employer] dictation software. please excuse any grammatical, word or spelling errors. Time with Patient: Less than 30
== END 2025-05-08 15:31 | DRG 64 ==
LOC: EC 14:10 → 3SCARD 16:47
PROVIDERS: ADMIT Internal Medicine; ATTEND Internal Medicine
PROC: B24BZZ4 Ultrasonography of Heart with Aorta, Transesophageal (ICD-10-PCS; principal; 2025-05-06 10:30)
DX: I63.40 Cerebral infarction due to embolism of unspecified cerebral artery (principal); G92.8 Other toxic encephalopathy; I21.A1 Myocardial infarction type 2; I48.21 Permanent atrial fibrillation; E87.1 Hypo-osmolality and hyponatremia; N17.9 Acute kidney failure, unspecified; B96.20 Unspecified Escherichia coli [E. coli] as the cause of diseases classified elsewhere; E11.40 Type 2 diabetes mellitus with diabetic neuropathy, unspecified; G43.909 Migraine, unspecified, not intractable, without status migrainosus; J44.89 Other specified chronic obstructive pulmonary disease; I10 Essential (primary) hypertension; F32.A Depression, unspecified; N39.0 Urinary tract infection, site not specified; Z16.12 Extended spectrum beta lactamase (ESBL) resistance; E11.649 Type 2 diabetes mellitus with hypoglycemia without coma; E87.6 Hypokalemia; F17.200 Nicotine dependence, unspecified, uncomplicated; K21.9 Gastro-esophageal reflux disease without esophagitis; I25.10 Atherosclerotic heart disease of native coronary artery without angina pectoris; R00.0 Tachycardia, unspecified; G47.33 Obstructive sleep apnea (adult) (pediatric); E78.5 Hyperlipidemia, unspecified; Z91.81 History of falling; Z79.01 Long term (current) use of anticoagulants; Z79.51 Long term (current) use of inhaled steroids; Z79.899 Other long term (current) drug therapy; Z86.73 Personal history of transient ischemic attack (TIA), and cerebral infarction without residual deficits; Z88.5 Allergy status to narcotic agent; Z88.8 Allergy status to other drugs, medicaments and biological substances; Z71.3 Dietary counseling and surveillance; Z89.429 Acquired absence of other toe(s), unspecified side
CPT/HCPCS: 36410; 36415; 70450; 70551; 71046; 76770; 76937; 80048; 80053; 80306; 80320; 81001; 82140; 82570; 82607; 82747; 83036; 83735; 83930; 83935; 84300; 84443; 84484; 85025; 85610; 85730; 87040; 87077; 87086; 87186; 93005; 93306; 93312; 93320; 93325; 94640; 94760; 95816; 96365; 96366; 96367; 96375; 99291